=== PATIENT | male | born 1975 | race Caucasian/White ===

== ENCOUNTER 2016-09-04 02:18 | Emergency (ER) | payer MEDICAID ==
[2014-02-28] VITALS: BMI 26.9
[~2016-09-04 02:18] MED LIST: CLEOCIN HCL300 MG PO
== END 2016-09-04 05:32 | disposition home or self-care (01) ==
LOC: D.ER 02:18
DX: J01.90 Acute sinusitis, unspecified (principal)

== ENCOUNTER 2016-09-10 12:41 | Emergency (ER) | payer MEDICAID ==
[2014-02-28] VITALS: BMI 26.9
== END 2016-09-10 15:55 | disposition left against medical advice (07) ==
LOC: D.ER 12:41
DX: J01.90 Acute sinusitis, unspecified (principal)

== ENCOUNTER 2016-10-13 22:55 | Emergency (ER) | payer MEDICAID ==
[2014-02-28] VITALS: BMI 26.9
[2016-10-13 23:51] LABS: BASOPHILS 0.4 % (0.0-2.0); EOSINOPHILS 2.5 % (0-7); HEMATOCRIT 40.9 % (42.0-54.0); IMMATURE GRANULOCYTES 0.7 % (0-5); LYMPHOCYTES 45.5 % (15-50); MCH 31.3 pg (26.0-34.0); MCHC 34.2 g/dL (31.0-37.0); MCV 91.3 fL (80.0-100.0); MEAN PLATELET VOLUME 8.7 fL (7.4-10.4); MONOCYTES 8.8 % (2-11); NEUTROPHILS 42.1 % (40-80); RBC 4.48 10x6/uL (4.20-6.10); RDW 12.4 % (11.5-14.5); WBC 5.5 10x3/uL (4.8-10.8)
[2016-10-13 23:53] LABS: PLATELET COUNT 187 10x3/uL (130-400)
[2016-10-14 00:29] LABS: ALBUMIN 3.9 g/dL (3.4-5.0); ALKALINE PHOSPHATASE 58 U/L (46-116); ALT (SGPT) 69 U/L (10-68); CALC OSMOLALITY 274 mosm/kg (275-300); CALCIUM 8.5 mg/dL (8.5-10.1); CARBON DIOXIDE 24.1 mmol/L (21.0-32.0); CHLORIDE - SERUM 103 mmol/L (98-107); CREATININE - SERUM 1.1 mg/dL (0.6-1.3); GLUCOSE 102 mg/dL (74-106); POTASSIUM - SERUM 3.8 mmol/L (3.5-5.1); SODIUM 137 mmol/L (136-145); UREA NITROGEN 15 mg/dL (7-18); eGFR NON AFRICAN AMERICAN 79 mL/min (90-120)
[2016-10-14 04:05] LABS: APPEARANCE CLEAR (CLEAR); BILIRUBIN NEGATIVE (NEGATIVE); COLOR YELLOW (YELLOW); GLUCOSE NEGATIVE (NEGATIVE); KETONE NEGATIVE (NEGATIVE); LEUKOCYTE ESTERASE NEGATIVE (NEGATIVE); NITRITE NEGATIVE (NEGATIVE); PROTEIN NEGATIVE (NEGATIVE); SPECIFIC GRAVITY 1.025 (1.005-1.020); UROBILINOGEN NORMAL (NORMAL)
[2016-10-14 04:15] LABS: UDS - AMPHET POSITIVE QUAL (NEGATIVE); UDS - BARB NEGATIVE QUAL (NEGATIVE); UDS - BENZO NEGATIVE QUAL (NEGATIVE); UDS - COCAINE NEGATIVE QUAL (NEGATIVE); UDS - METH NEGATIVE QUAL (NEGATIVE); UDS - OPIATE POSITIVE QUAL (NEGATIVE); UDS - PCP NEGATIVE QUAL (NEGATIVE); UDS - THC NEGATIVE QUAL (NEGATIVE)
== END 2016-10-14 04:35 | disposition home or self-care (01) ==
LOC: D.ER 22:55
PROVIDERS: Emergency Medicine
DX: T40.601A Poisoning by unspecified narcotics, accidental (unintentional), initial encounter (principal); Y92.019 Unspecified place in single-family (private) house as the place of occurrence of the external cause

== ENCOUNTER 2016-12-23 20:07 | Emergency (ER) | payer MEDICAID ==
[2014-02-28] VITALS: BMI 26.9
[2016-12-23 20:43] LABS: APPEARANCE CLEAR (CLEAR); BILIRUBIN NEGATIVE (NEGATIVE); COLOR YELLOW (YELLOW); GLUCOSE NEGATIVE (NEGATIVE); KETONE NEGATIVE (NEGATIVE); LEUKOCYTE ESTERASE NEGATIVE (NEGATIVE); NITRITE NEGATIVE (NEGATIVE); PROTEIN NEGATIVE (NEGATIVE); SPECIFIC GRAVITY 1.015 (1.005-1.020)
[2016-12-23 20:45] LABS: EPITHELIAL CELLS 0-5 /hpf (0-5); WHITE CELLS - URINE NSEEN /hpf (0-5)
[2016-12-23 20:51] LABS: BACTERIA FEW /hpf (NONE SEEN); SPERMATOZOA PRESENT /hpf (NONE SEEN)
[2016-12-23 21:17] LABS: BASOPHILS 0.1 % (0-2); EOSINOPHILS 0.5 % (0-7); HEMOGLOBIN 12.9 g/dL (13.5-17.5); IMMATURE GRANULOCYTES 0.4 % (0-5); LYMPHOCYTES 12.4 % (15-50); MCHC 33.9 g/dL (31.0-37.0); MCV 91.3 fL (80.0-100.0); MEAN PLATELET VOLUME 9.1 fL (7.4-10.4); MONOCYTES 12.2 % (2-11); NEUTROPHILS 74.4 % (40-80); RBC 4.16 10x6/uL (4.20-6.10); RDW 12.7 % (11.5-14.5); WBC 10.1 10x3/uL (4.8-10.8)
[2016-12-23 21:19] LABS: PLATELET COUNT 118 10x3/uL (130-400)
[2016-12-23 21:42] LABS: ALBUMIN 3.2 g/dL (3.4-5.0); ANION GAP 14.7 mmol/L (8-16); BILIRUBIN - TOTAL 0.31 mg/dL (0.2-1.3); CALCIUM 7.9 mg/dL (8.5-10.1); CARBON DIOXIDE 23.2 mmol/L (21.0-32.0); CREATININE - SERUM 1.2 mg/dL (0.6-1.3); POTASSIUM - SERUM 3.9 mmol/L (3.5-5.1); PROTEIN - SERUM 6.7 g/dL (6.4-8.2)
== END 2016-12-23 23:21 | disposition home or self-care (01) ==
LOC: D.ER 20:07
PROVIDERS: Emergency Medicine
DX: B34.9 Viral infection, unspecified (principal); F17.200 Nicotine dependence, unspecified, uncomplicated

== ENCOUNTER 2017-01-08 22:14 | Inpatient (IN) | payer MEDICARE ==
[~2017-01-08] VITALS: Ht 185.4 cm; Wt 99.7 kg
--- NOTE | ~2017-01-08 | HEMODYNAMI ---
PATIENT:KATIE SARABIA MEDICAL RECORD: [id number] : 77 LOCATION:[facility] D.2301 ADMISSION DATE: 01/09/17 Generatedon:01/25/201716:42 Patient name: KATIE SARABIA Patient #: [id number] SSN: : 1975 Date of study: 01/25/2017 Page: Of Hemodynamic Procedure Report Patient Data Patient Demographics Procedure consent was obtained First Name: KATIE Gender: Male Last Name: NO : 1975 Middle Initial: E Age: 41 year(s) Patient #: [id number] Race: Unknown Additional ID: [id number] Contact details [address]: [address] [place] [address] State: [place] City: [place] Zip code: [address] Past Medical History Allergies Allergen Reaction Date Comments Reported Penicillins 01/24/2017 Admission Admission Data Admission Date: 01/09/2017 Admission Time: 6:34 Room #: D.2301 Weight (lbs.): 210 Weight (kg.): 95.25 Procedure Procedure Types Cath Procedure Peripheral Cath Diagnostic Procedure Cath Peripheral Abd/Extremity Extremities Right Lower Ext Arterio Procedure Description Procedure Date Procedure Date: 01/25/2017 Procedure Start Time: 15:33 Procedure Staff Name Function Kevon Mason MD Performing Physician Bel Gottlieb RT Scrub Susi Morin RN Nurse Aparna Washburn RT Accounting Recruiter Aparna Washburn RT Monitor Procedure Data Cath Procedure Fluoroscopy Diagnostic fluoroscopy Total fluoroscopy Time: 0 time: 0 min min Diagnostic fluoroscopy Total fluoroscopy dose: 124 dose: 124 mGy mGy Contrast Material Contrast Material Type Amount (ml) Isovue 300 44 Procedure Medications Medication Administration Route Dosage Fentanyl I.V. 50 mcg Versed I.V. 2 mg Fentanyl I.V. 50 mcg Benadryl I.V. 50 mg Nitroglycerin IC/IA I.A. 200 mcg Fentanyl I.V. 50 mcg Versed I.V. 1 mg Heparin Bolus I.V. 3000 units Activase(12.5mg/250 NS) Heparin Drip 500 units/hr (90046ktewa/250 D5W) Hemodynamics Rest Heart Rate: 98 (bpm) Snapshots Pre Cath Intra NCS Post Cath Vital Signs Time Heart Resp SPO2 NIBP (mmHg) Rhythm Pain Sedation Rate (ipm) (%) Status Level (bpm) 14:39:05 95 17 98 127/72(106) NSR 0 (11) 10(A) , No pain 14:46:37 93 17 99 118/70(89) NSR 0 (11) 10(A) , No pain 14:50:45 102 22 97 125/77(87) NSR 0 (11) 10(A) , No pain 14:54:51 99 13 98 119/81(94) NSR 0 (11) 10(A) , No pain 14:59:48 95 15 99 122/82(99) NSR 0 (11) 10(A) , No pain 15:03:56 100 18 100 129/79(94) NSR 0 (11) 10(A) , No pain 15:08:04 98 20 99 122/80(95) NSR 0 (11) 10(A) , No pain 15:12:12 101 19 98 119/78(88) NSR 0 (11) 10(A) , No pain 15:16:19 97 27 98 125/83(96) NSR 0 (11) 10(A) , No pain 15:20:29 97 20 98 117/77(93) NSR 0 (11) 10(A) , No pain 15:24:35 94 15 98 123/85(102) NSR 0 (11) 10(A) , No pain 15:28:41 96 18 98 126/84(95) NSR 0 (11) 10(A) , No pain 15:32:53 96 14 98 124/73(96) NSR 0 (11) 10(A) , No pain 15:37:01 91 15 99 134/81(96) NSR 0 (11) 10(A) , No pain 15:41:10 95 14 96 138/87(115) NSR 0 (11) 10(A) , No pain 15:45:23 97 14 96 138/87(102) NSR 0 (11) 10(A) , No pain 15:49:32 93 24 97 122/79(95) NSR 0 (11) 10(A) , No pain 15:53:38 105 16 96 130/85(98) NSR 0 (11) 10(A) , No pain 15:57:44 105 17 97 126/86(102) NSR 0 (11) 10(A) , No pain 16:01:54 104 14 98 126/86(98) NSR 0 (11) 10(A) , No pain 16:06:02 107 14 97 123/81(96) NSR 0 (11) 10(A) , No pain 16:10:05 108 13 97 126/87(100) NSR 0 (11) 10(A) , No pain 16:14:11 109 13 98 123/84(97) NSR 0 (11) 10(A) , No pain 16:18:19 109 14 125/85(100) NSR 0 (11) 10(A) , No pain 16:22:29 104 18 98 130/85(102) NSR 0 (11) 10(A) , No pain 16:26:39 101 18 98 136/90(104) NSR 0 (11) 10(A) , No pain 16:30:51 97 21 97 139/93(105) NSR 0 (11) 10(A) , No pain 16:41:40 No Cuff NSR 0 (11) 10(A) , No pain Medications Time Medication Route Dose Verified Delivered Reason N otes Effectiveness by by 15:39:19 Fentanyl I.V. 50 mcg Susi Susi for sedation Patience Morin RN RN 15:39:37 Versed I.V. 2 mg Susi Susi for sedation Patience Morin RN RN 15:45:47 Fentanyl I.V. 50 mcg Susi Susi for sedation Patience Morin RN RN 15:46:06 Benadryl I.V. 50 mg Susi Susi for sedation Patience Morin RN RN 15:50:25 Nitroglycerin IC/IA I.A. 200 mcg Susi Kevon for Patience stockton RN, MD 15:53:19 Fentanyl I.V. 50 mcg Susi Susi for sedation Patience Morin RN RN 15:53:29 Versed I.V. 1 mg Susi Susi for sedation Patience Morin RN RN 16:19:22 Heparin Bolus I.V. 3000 Susi Susi units Patience Morin RN RN 16:39:25 Activase(12.5mg/250 I.A. Susi Kevon NS) INFUSION Patience Mason CATHETER ERLINDA LAWTON 16:39:56 Heparin Drip IA 500 Susi Kevon (95457bbzkp/250 sheath units/hr Patience Mason D5W) ERLINDA LAWTON Procedure Log Time Note 14:35:47 Patient Weight : 210 kg 14:35:47 Time tracking: Regular hours 14:37:15 Plan of Care:Hemodynamics will remain stable., Cardiac rhythm will remain stable., Comfort level will be maintained., Respiratory function will remain adequate., Patient/ family verbilizes understanding of procedure., Procedure tolerated without complication., Recovers from procedure without complications.. 14:37:26 Patient received from ICU to IR Alert and oriented. Tansferred to table in Supine position. 14:37:29 Correct patient and procedure confirmed by team. 14:37:30 Signed procedure consent form obtained from patient. 14:37:32 ECG and BP/O2 sat monitors applied to patient. 14:37:32 Vital chart was started 14:37:33 Baseline sample Acquired. 14:37:34 Full Disclosure recording started 14:37:35 - 14:37:53 H&P Date Dictated: 01/25/2017 Within 30 days and on chart.. 14:38:12 Pre-procedure instructions explained to patient. 14:38:13 Pre-op teaching completed and patient verbalized understanding. 14:38:17 Family in waiting room. 14:38:31 Patient NPO since Midnight. 14:38:37 Is the patient allergic to Iodine/contrast media? No. 14:38:40 Is patient on blood thinner?Yes 14:39:02 Patient diabetic? No. 14:39:09 - 14:39:15 Previous problem with sedation/anesthesia? No ? 14:39:20 Snore? Yes 14:39:21 Sleep apnea? No 14:39:23 Deviated septum? No 14:39:25 Opens mouth fully? Yes 14:39:27 Sticks out tongue? Yes 14:39:40 Airway obstruction? No but has endocarditisis 14:39:45 Dentures? No ? 14:39:46 - 15:31:41 Physician arrived 15:33:20 --------ALL STOP TIME OUT------ 15:33:20 Final Timeout: patient, procedure, and site verified with staff and physician. All members of the team are in agreement. 15:33:28 Physical assessment completed. ASA score P 3 - A patient with severe systemic disease as per Kevon Mason MD. 15:33:34 Sedation plan: IV Moderate Sedation Versed, Fentanyl 15:33:40 Procedure started. 15:33:43 Use device set IR Diagnostic 15:33:44 Sterile Angiographic Pack opened to sterile field. 15:33:45 Bag Decanter opened to sterile field. 15:37:[address] 260 .035 glide wire opened to sterile field. 15:37:25 Cook DAVIS 260 guide wire opened to sterile field. 15:37:26 CXI SUPPORT .035 135 CM STR catheter opened to sterile field. 15:39:19 Fentanyl 50 mcg I.V. was administered by Susi Morin RN; for sedation; 15:39:37 Versed 2 mg I.V. was administered by Susi Morin RN; for sedation; 15:45:47 Fentanyl 50 mcg I.V. was administered by Susi Morin RN; for sedation; 15:46:06 Benadryl 50 mg I.V. was administered by Susi Morin RN; for sedation; 15:47:03 Turbohawk 1 Small Atherectomy catheter opened to sterile field. 15:50:25 Nitroglycerin IC/IA 200 mcg I.A. was administered by Kevon Mason MD; for vasodilation; 15:53:19 Fentanyl 50 mcg I.V. was administered by Susi Morin RN; for sedation; 15:53:29 Versed 1 mg I.V. was administered by Susi Morin RN; for sedation; 16:18:17 BasixTOUCH Inflation Syringe opened to sterile field. 16:19:03 Inflation number: 1 A Saber 3.0 X 150 X 150 balloon was prepped and advanced across the Undefined1, then inflated to 15 ELOY for 0:10 (min:sec). 16:19:22 Heparin Bolus 3000 units I.V. was administered by Susi Morin RN; ; 16:31:04 Procedure ended.(Physican Out) 16:37:03 Contrast amount:Isovue 300 44ml. 16:37:11 Fluoroscopy time 00.00 minutes. 16:37:17 Fluoroscopy dose: 124 mGy 16:37:17 Flurop Dose total: 124 16:37:36 Sharps counted by scrub and verified by R.N. 16:37:42 Procedure and supply charges have been captured, reviewed, submitted an d are correct. 16:37:45 Post Procedure Pulses reassessed and unchanged 16:39:25 Activase(12.5mg/250 NS) I.A. INFUSION CATHETER was administered by George Mason MD; ; 16:39:56 Heparin Drip (18513rezir/250 D5W) 500 units/hr IA sheath was administered by Kevon Mason MD; ; 16:42:52 Vital chart was stopped Intervention Summary Intervention Notes Time ActionType Lesion and Equipment Action# Pressure Duration Attributes Used 16:19:03 Inflate Undefined1 Saber 3.0 1 15 00:10 balloon X 150 X 150 balloon Device Usage Item Name Manufacture Quantity Catalog Hospital Part Current Minima l Lot# / Number Charge Number Stock Stock Serial# Code Sterile Cardinal 1 [id number] Angiographic Health Pack Bag Decanter Microtek 1 330758 00186 626782 [employer] Cook [facility] 1 [id number] 252528 674682 5 9[address] ROADNN 260 .035 glide wire [facility] 1 S10233 289299 160696 5 4169850 260 guide wire CXI SUPPORT [facility] 1 [id number] 469187 869846 5 5576694 .035 135 CM STR catheter Turbohawk 1 Ev3 1 H1-S 698653 8479414 357785 5 Small Atherectomy catheter Saber 3.0 X Cardinal 1 [id number] 729426 535542 5 150 X 150 Health balloon [facility] 1 [id number] 332033 839261 657387 5 Inflation Medical Syringe Signature Audit [place] Stage Time Signature Unsigned Intra-Procedure 01/25/2017 Aparna Washburn 4:42:49 PM RT(R) Signatures Monitor : Aparna Washburn RT Signature : Date : Time : [address] [place] [address]
--- NOTE | ~2017-01-08 | HEMODYNAMI ---
PATIENT:KATIE SARABIA MEDICAL RECORD: [id number] : 77 LOCATION:[facility] D.2301 ADMISSION DATE: 01/09/17 Generatedon:01/24/201710:54 Patient name: KATIE SARABIA Patient #: [id number] SSN: : 1975 Date of study: 01/24/2017 Page: Of Hemodynamic Procedure Report Patient Data Patient Demographics Procedure consent was obtained First Name: KATIE Gender: Male Last Name: NO : 1975 Middle Initial: E Age: 41 year(s) Patient #: [id number] Race: Unknown Additional ID: [id number] Contact details Address: [address] [place] [address] State: [place] City: [place] Zip code: [address] Past Medical History Allergies Allergen Reaction Date Comments Reported Penicillins 01/24/2017 Admission Admission Data Admission Date: 01/09/2017 Admission Time: 6:34 Room #: D.2301 Weight (lbs.): 210 Weight (kg.): 95.25 Procedure Procedure Types Cath Procedure Peripheral Cath Diagnostic Procedure Cath Peripheral Abd/Extremity Extremities Bilat Lower Extremity Procedure Description Procedure Date Procedure Date: 01/24/2017 Procedure Start Time: 8:33 Procedure Staff Name Function Dale Thacker MD Performing Physician Bel Gottlieb RT Scrub Suis Morin RN Nurse Aparna Washburn RT Documentation Analyst Aparna Washburn RT Monitor Procedure Data Cath Procedure Fluoroscopy Diagnostic fluoroscopy Total fluoroscopy Time: 9.9 time: 9.9 min min Diagnostic fluoroscopy Total fluoroscopy dose: 382 dose: 382 mGy mGy Contrast Material Contrast Material Type Amount (ml) Isovue 300 110 Diagnostic catheters Device Type Used For End Catheter Placement Angiodynamics SOS OMNI 2 NON B 5FR 65CM catheter Procedure Medications Medication Administration Route Dosage Fentanyl I.V. 50 mcg Versed I.V. 1 mg Fentanyl I.V. 50 mcg Versed I.V. 1 mg Fentanyl I.V. 50 mcg Versed I.V. 1 mg Versed I.V. 1 mg Fentanyl I.V. 50 mcg Benadryl I.V. 50 mg Dilaudid I.V. 1 mg Hemodynamics Rest Heart Rate: 89 (bpm) Snapshots Pre Cath Intra NCS Post Cath Vital Signs Time Heart Resp SPO2 NIBP (mmHg) Rhythm Pain Sedation Rate (ipm) (%) Status Level (bpm) 8:15:08 89 20 97 129/71(91) NSR 0 (11) 10(A) , No pain 8:19:22 89 12 100 129/72(95) NSR 0 (11) 10(A) , No pain 8:23:32 92 13 98 130/79(93) NSR 0 (11) 10(A) , No pain 8:27:48 91 13 98 130/70(90) NSR 0 (11) 10(A) , No pain 8:32:04 95 12 97 127/72(95) NSR 0 (11) 10(A) , No pain 8:36:55 96 13 98 134/78(104) NSR 0 (11) 10(A) , No pain 8:41:07 92 13 99 128/75(97) NSR 0 (11) 10(A) , No pain 8:45:14 91 14 99 124/73(93) NSR 0 (11) 10(A) , No pain 8:49:29 90 13 98 124/71(87) NSR 0 (11) 10(A) , No pain 8:53:42 80 14 98 124/71(90) NSR 0 (11) 10(A) , No pain 8:57:54 89 15 99 119/68(79) NSR 0 (11) 10(A) , No pain 9:02:04 93 15 99 126/75(88) NSR 0 (11) 10(A) , No pain 9:06:16 89 15 98 123/76(89) NSR 0 (11) 10(A) , No pain 9:10:30 86 10 97 120/68(93) NSR 0 (11) 10(A) , No pain 9:14:46 91 19 98 118/64(85) NSR 0 (11) 10(A) , No pain 9:18:58 90 12 97 125/69(86) NSR 0 (11) 10(A) , No pain 9:23:12 89 11 97 126/70(85) NSR 0 (11) 10(A) , No pain 9:27:26 84 14 98 125/68(95) NSR 0 (11) 10(A) , No pain 9:31:38 85 14 100 119/66(78) NSR 0 (11) 10(A) , No pain 9:35:50 86 19 99 119/74(84) NSR 0 (11) 10(A) , No pain 9:39:58 88 16 87 117/83(95) NSR 0 (11) 10(A) , No pain 9:44:10 80 16 97 120/68(84) NSR 0 (11) 10(A) , No pain 9:48:20 82 18 96 121/75(83) NSR 0 (11) 10(A) , No pain 9:52:32 81 17 96 122/69(89) NSR 0 (11) 10(A) , No pain 9:56:41 79 21 95 117/70(87) NSR 0 (11) 10(A) , No pain 10:00:52 80 19 95 120/72(86) NSR 0 (11) 10(A) , No pain 10:05:01 78 14 94 119/71(86) NSR 0 (11) 10(A) , No pain 10:09:13 79 27 94 119/68(93) NSR 0 (11) 10(A) , No pain 10:13:27 80 18 92 114/69(84) NSR 0 (11) 10(A) , No pain 10:17:39 84 14 92 117/67(84) NSR 0 (11) 10(A) , No pain 10:21:53 81 14 94 120/67(83) NSR 0 (11) 10(A) , No pain 10:26:05 81 13 92 120/65(87) NSR 0 (11) 10(A) , No pain 10:30:17 83 26 94 121/68(90) NSR 0 (11) 10(A) , No pain 10:34:39 84 19 94 127/49(91) NSR 0 (11) 10(A) , No pain 10:38:55 89 14 94 123/66(82) NSR 0 (11) 10(A) , No pain 10:43:07 82 12 95 118/63(82) NSR 0 (11) 10(A) , No pain 10:47:21 82 16 96 119/68(85) NSR 0 (11) 10(A) , No pain 10:51:33 96 122/74(91) NSR 0 (11) 10(A) , No pain Medications Time Medication Route Dose Verified Delivered Reason Notes Effectivene ss by by 8:35:02 Fentanyl I.V. 50 Susi Susi for mcg Patience Patience sedation RN RN 8:35:16 Versed I.V. 1 mg Susi Susi for Patience Patience sedation RN RN 8:50:16 Versed I.V. 1 mg Susi Susi for Patience Patience sedation RN RN 8:50:49 Fentanyl I.V. 50 Susi Susi for mcg Patience Patience sedation RN RN 9:00:44 Fentanyl I.V. 50 Susi Susi for mcg Patience Patience sedation RN RN 9:00:53 Versed I.V. 1 mg Susi Susi for Patience Patience sedation RN RN 9:15:16 Versed I.V. 1 mg Susi Susi for Patience Patience sedation RN RN 9:15:28 Fentanyl I.V. 50 Susi Susi for mcg Patience Patience sedation RN RN 9:20:11 Benadryl I.V. 50 mg Susi Susi for Patience Patience itching RN RN 10:52:29 Dilaudid I.V. 1 mg Susi Susi for pain Patience Patience RN nurse advocate Log Time Note 8:12:35 Patient Weight : 210 kg 8:13:19 Time tracking: Regular hours 8:13:40 Plan of Care:Hemodynamics will remain stable., Cardiac rhythm will remain stable., Comfort level will be maintained., Respiratory function will remain adequate., Patient/ family verbilizes understanding of procedure., Procedure tolerated without complication., Recovers from procedure without complications.. 8:13:52 Patient received from Med II to IR Alert and oriented. Tansferred to table in Supine position. 8:13:56 Correct patient and procedure confirmed by team. 8:13:59 Signed procedure consent form obtained from patient. 8:14:00 ECG and BP/O2 sat monitors applied to patient. 8:14:02 Vital chart was started 8:14:04 Baseline sample Acquired. 8:14:05 Full Disclosure recording started 8:14:06 - 8:14:14 H&P Date Dictated: 01/24/2017 Within 30 days and on chart.. 8:14:17 Pre-procedure instructions explained to patient. 8:14:18 Pre-op teaching completed and patient verbalized understanding. 8:14:20 Family in waiting room. 8:14:24 Patient NPO since Midnight. 8:14:32 Patient allergic to Penicillins 8:14:38 Is the patient allergic to Iodine/contrast media? No. 8:14:41 Is patient on blood thinner?No 8:14:45 Patient diabetic? No. 8:14:47 - 8:15:46 Use device set IR Diagnostic 8:15:48 Sterile Angiographic Pack opened to sterile field. 8:15:49 Bag Decanter opened to sterile field. 8:15:50 Acist Manifold opened to sterile field. 8:15:51 Acist Hand Control opened to sterile field. 8:15:53 Acist Syringe opened to sterile field. 8:16:17 TUBING, CONTRAST INJCTN HI PRES opened to sterile field. 8:16:18 Micropuncture VSI 4FR kit opened to sterile field. 8:16:18 [employer] DOC .035 guide wire opened to sterile field. 8:16:19 Terumo 5Fr [place] Sheath opened to sterile field. 8:16:28 ----Pre-sedation anethsthesia assessment.---- 8:16:31 Previous problem with sedation/anesthesia? No ? 8:16:34 Snore? No 8:16:35 Sleep apnea? No 8:16:38 Deviated septum? No 8:16:39 Opens mouth fully? Yes 8:16:41 Sticks out tongue? Yes 8:16:56 Airway obstruction? Yes endocarditisis 8:17:01 Dentures? No ? 8:17:03 - 8:17:14 Pre procedure: right dorsailis pedis pulse Doppler 8:17:19 Pre procedure: left dorsailis pedis pulse Doppler 8:17:22 Pre procedure: right posterior tibial pulse Doppler 8:17:27 Pre procedure: left posterior tibial pulse Doppler 8:17:42 IV patent on arrival in Right upper arm with 0.9% NaCl at [facility]. 8:18:00 Left groin area was prepped with chlora-prep and draped in sterile fashion 8:18:02 Alarms reviewed by Isaías Moncada 8:18:03 Sharps counted by scrub and verified by Edwin 8:18:03 - 8:30:30 Physician arrived 8:33:08 --------ALL STOP TIME OUT------ 8:33:09 Final Timeout: patient, procedure, and site verified with staff and physician. All members of the team are in agreement. 8:33:15 Physical assessment completed. ASA score P 3 - A patient with severe systemic disease as per Dale Thacker MD. 8:33:21 Sedation plan: IV Moderate Sedation Versed, Fentanyl 8:33:27 Procedure started. 8:33:32 Local anesthetic to left femerol artery with Lidocaine 1% by Dale Thacker MD.INITIAL ACCESS ONLY 8:35:02 Fentanyl 50 mcg I.V. was administered by Susi Morin RN; for sedation; 8:35:16 Versed 1 mg I.V. was administered by Susi Morin RN; for sedation; 8:35:21 Arterial access obtained using ultrasound guidance. 8:39:20 A [employer] SOS OMNI 2 NON B 5FR 65CM catheter was advanced over th e wire and used for . 8:49:31 Terumo 5FR ANGLED 65CM glide catheter opened to sterile field. 8:50:16 Versed 1 mg I.V. was administered by Susi Morin RN; for sedation; 8:50:49 Fentanyl 50 mcg I.V. was administered by Susi Morin RN; for sedation; 8:52:17 Terumo ANGLE 180L glide wire opened to sterile field. 8:52:27 Terumo TORQUE DEVICE PLASTIC .038 opened to sterile field. 9:00:44 Fentanyl 50 mcg I.V. was administered by Susi Morin RN; for sedation; 9:00:53 Versed 1 mg I.V. was administered by Susi Morin RN; for sedation; 9:02:25 Cook DAVIS 260 guide wire opened to sterile field. 9:02:44 Terumo 6Fr [place] Destination Sheath opened to sterile field. 9:05:40 Terumo 5FR ANGLED 100CM glide catheter opened to sterile field. 9:06:35 Terumo ANGLE 260cm glide wire opened to sterile field. 9:10:32 CXI SUPPORT .035 135 CM STR catheter opened to sterile field. 9:15:16 Versed 1 mg I.V. was administered by Susi Morin RN; for sedation; 9:15:28 Fentanyl 50 mcg I.V. was administered by Susi Morin RN; for sedation; 9:20:11 Benadryl 50 mg I.V. was administered by Susi Morin RN; for itching; 9:30:59 CRAGG-CARL 10cm infusion catheter opened to sterile field. 9:37:31 infusion cath placed to infuse TPA 9:42:33 Procedure ended.(Physican Out) 9:42:40 Fluoroscopy time 09.90 minutes. 9:44:58 Fluoroscopy dose: 382 mGy 9:44:58 Flurop Dose total: 382 9:45:06 Contrast amount:Isovue 300 110ml. 9:45:09 Procedure and supply charges have been captured, reviewed, submitted an d are correct. 10:52:29 Dilaudid 1 mg I.V. was administered by Susi Morin RN; for pain; 10:54:48 Vital chart was stopped Device Usage Item Name Manufacture Quantity Catalog Hospital Part Current Mini mal Lot# / Number Charge Number Stock Stock Serial# Code Sterile Cardinal 1 [id number] 601136 5 Angiographic Health Pack Bag Decanter Microtek 1 [id number] 32932 580314 5 Medical Inc. Acist Manifold Acist Medical 1 38741 114622 896093 636945 5 Systems Inc Acist Hand Acist Medical 1 15513 364349 718414 684790 5 Control Systems Inc Acist Syringe Acist Medical 1 23379 658955 834860 670325 20 Systems Lenddo TUBING, [facility] Medical 1 [id number] 158108 860755 572311 5 CONTRAST INJCTN HI PRES Micropuncture VSI VASCULAR 1 7266V 105671 979009 5 VSI 4FR kit SOLUTIONS Permabit Technology DOC .035 Cook [facility] 1 S60784 281362 414451 5 7699164 guide wire Terumo 5Fr Terumo 1 UYZ317 275182 394158 775067 40 [place] Sheath Angiodynamics Angiodynamics 1 [id number] 834325 21823 818433 5 SOS OMNI 2 NON B 5FR 65CM catheter Terumo 5FR Terumo 1 CG507 682519 833108 5 ANGLED 65CM glide catheter Terumo ANGLE Terumo 1 DJ3007 325776 761910 372231 5 180L glide wire Terumo TORQUE [place] 1 TD01 397780 424539 949014 5 DEVICE PLASTIC Scientific .038 Cook DAVIS 260 Cook [facility] 1 C03557 449857 135702 5 0884846 guide wire Terumo 6Fr Terumo 1 RSR01 648281 45278 203301 5 [place] Destination Sheath Terumo 5FR Terumo 1 CG508 239509 36323 936542 4 ANGLED 100CM glide catheter Terumo ANGLE Terumo 1 NO7043 104487 926317 127205 5 260cm glide wire CXI SUPPORT [facility] 1 L88464 221128 313840 5 7205976 .035 135 CM STR catheter CARMINA 3 1 00774-40 822501 639058 5 10cm infusion catheter Signature Audit [place] Stage Time Signature Unsigned Intra-Procedure 01/24/2017 Aparna Washburn 10:54:45 AM RT(R) Signatures Monitor : Aparna Washburn RT Signature : Date : Time : [facility] [address] [place] [address]
[2017-01-08 23:33] LABS: HEMOGLOBIN 11.4 g/dL (13.5-17.5); LYMPHOCYTES 5.4 % (15-50); MCH 30.3 pg (26.0-34.0); MCHC 34.5 g/dL (31.0-37.0); MCV 87.8 fL (80.0-100.0); MEAN PLATELET VOLUME 8.4 fL (7.4-10.4); NEUTROPHILS 87.6 % (40-80); RBC 3.76 10x6/uL (4.20-6.10); RDW 12.6 % (11.5-14.5); WBC 11.4 10x3/uL (4.8-10.8)
[2017-01-08 23:34] LABS: PLATELET COUNT 178 10x3/uL (130-400)
[2017-01-09] LABS: ALBUMIN 3.2 g/dL (3.4-5.0); ANION GAP 14.9 mmol/L (8-16); BILIRUBIN - TOTAL 0.37 mg/dL (0.2-1.3); CALCIUM 8.5 mg/dL (8.5-10.1); CARBON DIOXIDE 22.1 mmol/L (21.0-32.0); CREATININE - SERUM 1.5 mg/dL (0.6-1.3); PROTEIN - SERUM 7.8 g/dL (6.4-8.2)
[2017-01-09 00:03] LABS: TROPONIN-I 0.046 ng/mL (0.000-0.060)
[2017-01-09 00:06] LABS: APPEARANCE CLOUDY (CLEAR); BILIRUBIN NEGATIVE (NEGATIVE); COLOR DK YELLOW (YELLOW); GLUCOSE NEGATIVE (NEGATIVE); KETONE NEGATIVE (NEGATIVE); LEUKOCYTE ESTERASE TRACE (NEGATIVE); NITRITE NEGATIVE (NEGATIVE); PROTEIN TRACE mg/dL (NEGATIVE); UROBILINOGEN NORMAL (NORMAL)
[2017-01-09 00:07] LABS: BACTERIA FEW /hpf (NONE SEEN); EPITHELIAL CELLS 0-5 /hpf (0-5); WHITE CELLS - URINE 0-5 /hpf (0-5)
[2017-01-09 07:59] VITALS: BP 71/42; BMI 28.4
--- NOTE | 2017-01-09 08:08 | NUR ---
PT ARRIVED FROM ER VIA WHEELCHAIR. PT TEMP 98.6 ORALLY. BP IS 71/42 ATTEMPTED TO GET HIGHER BP SEVERAL TIMES WITH SAME RESULT. HR 98 BPM. RR 20. O2 SAT 95% ON RA. AT BEDSIDE. ADMISSION IS COMPLETE. PT IS ALERT AND ORIENTED JUST STATES HE "DOES NOT FEEL WELL". CALL PUT IN TO DR ROMAN R/T LOW BP. DR ROMAN SAID TO DO 500 CC BOLUS OF NS. WILL DO
[2017-01-09 09:27] VITALS: BP 84/43
--- NOTE | 2017-01-09 09:28 | NUR ---
PT NS BOLUS COMPLETE. PT BP BACK UP TO 84/43. PT IS STILL UNSYMPTOMATIC OF LOW BP. PT CO HEARTBURN AFTER EATING BREAKFAST, PT ATE GIVEN BREAKFAST TRAY ALONG WITH MCDONALDS BROUGHT IN. PT WAS LYING FLAT. SAT PT UP TO 45 DEGREES PT SAID THAT SEEMED TO HELP. WILL CONT TO MONITOR
--- NOTE | 2017-01-09 09:34 | NUR ---
CALLED [facility] TO RETRIEVE MEDICAL RECORDS PER DR GUZMAN. SPOKE WITH MIKE SHE WILL BE FAXING THEM OVER
--- NOTE | 2017-01-09 11:00 | NUR ---
PT SITTING UP IN BED SLEEPING. NO S/S DISTRESS NOTED. RR EVEN AND UNLABORED. WILL CONT TO MONITOR
--- NOTE | 2017-01-09 11:16 | NUR ---
GEM CALLED AND SAID PT BC ARE POSITIVE FOR GRAM + COCCI IN CLUSTERS. NO ISOLATION IS NEEDED YET UNTIL THEY KNOW WHAT TYPE OF STAPH IT IS, SHE SAID SHE WILL KNOW MORE IN THE AM. SPOKE WITH MARCIO
--- NOTE | 2017-01-09 11:39 | NUR ---
REQUESTED MEDICAL RECORDS FROM [facility] WERE FAXED OVER AND PLACED ON PT CHART.
[2017-01-09 12:04] VITALS: BP 80/46
--- NOTE | 2017-01-09 13:51 | NUR ---
DR LUCERO PLACED AN ORDER FOR PT TO BE PLACED IN ISOLATION CONTACT FOR MRSA IN THE BLOOD. DONE.
--- NOTE | 2017-01-09 14:53 | NUR ---
PARTS DELIVERY DRIVER CAME UP TO ME AND SAID THAT PT WANTED SOME PAIN MEDICATION. WENT IN TO ASSESS PT PAIN LEVEL AND LOCATION, PT IS SLEEPING NO S/S DISTRESS RR EVEN AND UNLABORED. CALLED OUT TO PT WITH NO RESPONSE. WILL CONT TO MONITOR
[2017-01-09 16:12] VITALS: BP 105/47
--- NOTE | 2017-01-09 20:17 | NUR ---
NORCO 1 TAB GIVEN AT PT REQUEST FOR C/O PAIN TO BILATERAL KNEES, RATES PAIN AT A 7 ON PAIN SCALE. WILL CONT TO MONITOR.
[2017-01-09 22:09] VITALS: BP 93/49
--- NOTE | 2017-01-10 00:12 | NUR ---
PT UP TO SHOWER.
[2017-01-10 00:45] VITALS: BP 106/60
--- NOTE | 2017-01-10 01:33 | NUR ---
RESTING WITH EYES CLOSED, RESPERATIONS EVEN, NO S/S DISTRESS NOTED.
[2017-01-10 05:13] VITALS: BP 105/54
--- NOTE | 2017-01-10 05:23 | NUR ---
NORCO 1 TAB GIVEN FOR C/O PAIN TO HAND AND KNEES. RATES PAIN AT AN 8 ON PAIN SCALE.
[2017-01-10 05:40] LABS: BASOPHILS 0.1 % (0-2); EOSINOPHILS 0.5 % (0-7); HEMATOCRIT 30.5 % (42.0-54.0); HEMOGLOBIN 10.2 g/dL (13.5-17.5); IMMATURE GRANULOCYTES 0.3 % (0-5); MCH 30.1 pg (26.0-34.0); MCHC 33.4 g/dL (31.0-37.0); NEUTROPHILS 77.1 % (40-80); RBC 3.39 10x6/uL (4.20-6.10); RDW 13.3 % (11.5-14.5); WBC 13.1 10x3/uL (4.8-10.8)
[2017-01-10 05:42] LABS: PLATELET COUNT 130 10x3/uL (130-400)
[2017-01-10 05:45] LABS: ANION GAP 13.7 mmol/L (8-16); CALCIUM 7.7 mg/dL (8.5-10.1); CARBON DIOXIDE 20.3 mmol/L (21.0-32.0); CREATININE - SERUM 1.5 mg/dL (0.6-1.3)
--- NOTE | 2017-01-10 07:24 | HP ---
PATIENT: KATIE SARABIA MEDICAL RECORD: [id number] ACCOUNT: [id number] LOCATION:[address] : [birth year] ADMISSION DATE: 01/09/17 HISTORY AND PHYSICAL EXAMINATION DATE OF ADMISSION: 01/09/2017 CHIEF COMPLAINT: Elevated temperature. HISTORY OF PRESENT ILLNESS: The patient is a 41-year-old gentleman who apparently has seen Angel Gonzalez in the past, but states that Dr. Gonzalez had ____ patients. He also states that he had been admitted at [facility] over the past couple of weeks with pneumonia. He had developed a fever approximately a month ago. He had also developed a tooth abscess which apparently had ruptured. He has ran fever off and on for the past 3 weeks. His fever was 104 upon presentation in Emergency Room. PAST MEDICAL HISTORY: The patient has had a history of having IV drug use in the past. He has had a fractured left jaw with a plate placed in the left mandible region. He has also had an appendectomy. HABITS: The patient states he is a smoker as well as does drink beer on a daily basis. Has used IV drugs in the past, not any in the last 6 years. SOCIAL HISTORY: [place] [facility] [place] He states he is currently disabled secondary to back pain. 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 ALLERGIES: PENICILLIN. MEDICATIONS: Cannot be found on the intake exam sheet from the Emergency Room. REVIEW OF SYSTEMS: CONSTITUTIONAL: He denies any headaches, seizures, or syncope. Denies change in visual or auditory acuity. PULMONARY: He denies any shortness of breath, cough, congestion, history of TB, asthma or bronchitis. CARDIOVASCULAR: No chest pain, palpitation, PND, orthopnea. GASTROINTESTINAL: No chronic nausea, vomiting, melena or hematochezia. GENITOURINARY: No urgency, frequency, or dysuria. PHYSICAL EXAMINATION: VITAL SIGNS: In the Emergency Room the patient's temperature was 100.1, his pulse was 135, respirations 24, blood pressure 98/62. HEENT: Unremarkable with the exception of numerous dental caries present. Poor dentition. NECK: Supple. There is no adenopathy He has no meningeal signs. HEART: Slightly tachycardic. LUNGS: Clear. ABDOMEN: Soft, bowel sounds are positive. EXTREMITIES: Lower extremities have no edema. LABORATORY DATA: On Admission, he had lactic acid of 1. Urine pH was 5, specific gravity 1.020, trace protein, 10-25 rbc's, 0-5 wbc's. White count was 11.4, hemoglobin 11.4, hematocrit 33, platelets were 178. Sodium 129, potassium HISTORY AND PHYSICAL [id number] KATIE SARABIA E 4, chloride is 96, CO2 is 22, BUN is 24, creatinine is 1.5. ASSESSMENT: Fever of unknown origin. Possible subacute bacterial endocarditis with history of many dental caries as well as history of IV drug use in the past. PLAN: The patient is admitted. Blood cultures will be obtained and he will be placed on vancomycin 1 gram q.12 hours, pharmacy will adjust the doses. He will have an echocardiogram to rule out vegetation. Infectious disease consult will be obtained as well. TRANSINT:[id number] Voice Confirmation ID: [id number] DOCUMENT ID: [id number] KASH NAIR MD at 0724 CC: [id number] DICTATION DATE: 01/09/17711 CABIN EQUIPMENT SUPERVISOR: 01/09/17 0808 ADM IN [place] [id number] [place] [address]
[2017-01-10 08:19] VITALS: BP 92/48
[2017-01-10 12:18] VITALS: BP 101/46
[2017-01-10 15:47] VITALS: BP 106/56
--- NOTE | 2017-01-10 19:33 | NUR ---
ASSESSMENT COMPELTE, A&O, RESPERATIONS EVEN ON RA. IV TO RIGHT FOREARM WITH NS INFUSING AT 125, SITE CLEAN AND DRY. AT BED SIDE, BED LOW, CL IN REACH, WILL CONT TO MONITOR.
--- NOTE | 2017-01-10 21:26 | NUR ---
HS MEDS GIVEN WITH FRESH CUP OF ICE AND LEMON BELKOFSKI SODA. NORCO 1 TAB ALSO GIVEN AT PT REQUEST FOR C/O PAIN TO HANDS AND KNEES, RATES PAIN AT AN 8 ON PAIN SCALE.
[2017-01-10 22:32] VITALS: BP 116/73
[2017-01-11 00:42] VITALS: BP 129/72
--- NOTE | 2017-01-11 03:45 | NUR ---
CHILLER TECHNICIAN AT BEDSIDE TO OBTAIN VITALS, CALL LIGHT IN REACH. WILL CONTINUE WITH PLAN OF CARE.
--- NOTE | 2017-01-11 04:31 | NUR ---
NORCO 1 TAB GIVEN FOR C/O PAIN, RATES PAIN AT AN 8 ON PAIN SCALE.
--- NOTE | 2017-01-11 05:11 | NUR ---
ANSWERED CL, PT SHAKING, STATED THAT HE IS SOB AND HIS FEET AND LEGS ARE IN EXCRUCIATING PAIN. VITALS STABLE, SPO2 94% ON ROOM AIR. PLACED O2 ON AT 2 LITERS FOR PTS PEACE OF MIND, INFORMED HIM TO BREATHE IN SLOWLY THROUGH HIS NOSE AND OUT THROUGH HIS MOUTH. NAPROXEN 2 TABS GIVEN EARLY ALONG WITH A 325 MG OF TYLENOL. DIDNT GIVEN THE FULL 650 MG DUE TO PT HAD JUST TAKEN NORCO 30 MINUTES EARLIER. WILL CONT TO MONITOR.
[2017-01-11 05:12] LABS: BASOPHILS 0.1 % (0-2); EOSINOPHILS 0.5 % (0-7); HEMATOCRIT 28.9 % (42.0-54.0); HEMOGLOBIN 9.7 g/dL (13.5-17.5); IMMATURE GRANULOCYTES 0.5 % (0-5); LYMPHOCYTES 12.9 % (15-50); MCH 30.4 pg (26.0-34.0); MCHC 33.6 g/dL (31.0-37.0); MCV 90.6 fL (80.0-100.0); MEAN PLATELET VOLUME 9.9 fL (7.4-10.4); MONOCYTES 11.1 % (2-11); NEUTROPHILS 74.9 % (40-80); PLATELET COUNT 122 10x3/uL (130-400); RBC 3.19 10x6/uL (4.20-6.10); RDW 13.4 % (11.5-14.5)
--- NOTE | 2017-01-11 05:12 | NUR ---
NORCO 1 TAB GIVEN FOR C/O PAIN, RATES PAIN AT AN 8 ON PAIN SCALE.
[2017-01-11 05:13] LABS: WBC 9.2 10x3/uL (4.8-10.8)
[2017-01-11 05:24] LABS: ANION GAP 11.8 mmol/L (8-16); CALCIUM 7.7 mg/dL (8.5-10.1); CARBON DIOXIDE 22.2 mmol/L (21.0-32.0); CREATININE - SERUM 1.2 mg/dL (0.6-1.3); VANCOMYCIN - TROUGH 9.7 ug/mL (10.0-20.0)
--- NOTE | 2017-01-11 06:01 | NUR ---
PT IN BED, RESTING WITH RESPERATIONS EVEN, NO S/S DISTRESS NOTED. AT BED SIDE.
[2017-01-11 06:10] VITALS: BP 147/85
--- NOTE | 2017-01-11 07:00 | NUR ---
PT WAS RECEIVED AT THE BEGINNING OF THIS SHIFT IN BED AWAKE AND ORIENTED X 4. RT. FOREARM IV WITH NS INFUSING AT 125ML'S/HR. 02 PER NC GOING AT 2L/MIN. PT IS IN CONTACT ISOLATION PRECAUTIONS. PT IS UP AD MIGUELITO TO THE BATHROOM. WILL BE MONITORING HIM AND ASSISTING PRN WITH ADL'S. CALL LIGHT IS REACH.
[2017-01-11 08:00] VITALS: BP 115/47
[2017-01-11 11:55] VITALS: BP 119/64
--- NOTE | 2017-01-11 15:07 | NUR ---
PT ASKED FOR PAIN MEDICATION AROUND 0855 AND AGAIN AT 2PM AND RECEIVED NORCO 7.5MG EACH TIME. IV PATENT AND ABT THERAPY BEING ADMINISTERED PER ORDER. NO SIGNS OF ANY DISCOMFORT OR DISTRESS.
[2017-01-11 15:49] VITALS: BP 112/66
--- NOTE | 2017-01-11 18:46 | NUR ---
PT IS RESTING IN BED WITH EYES CLOSED. STABLE CONDITION OBSERVED. CALL LIGHT IN REACH.
[2017-01-11 19:00] VITALS: BP 141/80
[2017-01-12 04:00] VITALS: BP 137/73
--- NOTE | 2017-01-12 04:09 | NUR ---
ASSESSED AT THE BEGINNING OF THE SHIFT. HE IS ALERT AND ORIENTED, ABLE DEZ VERBALIZE NEEDS. HIS REMAINS WITH HIM. THERE IS CONTACT ISOLATION IN PLACE. HE HAS REQUESTED AND RECEIVED HIS PAIN MEDS WHEN ASKEDD. THERE IS O2 AT 2 LIGHERS AND TE[address]METRY IS IN PLACE. THE BED IS LOW, RAILS UP X'S 2 WITH THE CALL LIGHT AT HAND.
[2017-01-12 05:33] LABS: BASOPHILS 0.1 % (0-2); EOSINOPHILS 0.9 % (0-7); HEMOGLOBIN 10.2 g/dL (13.5-17.5); IMMATURE GRANULOCYTES 1.4 % (0-5); LYMPHOCYTES 17.5 % (15-50); MCH 29.8 pg (26.0-34.0); MCHC 32.9 g/dL (31.0-37.0); MCV 90.6 fL (80.0-100.0); MEAN PLATELET VOLUME 9.4 fL (7.4-10.4); MONOCYTES 13.7 % (2-11); NEUTROPHILS 66.4 % (40-80); PLATELET COUNT 137 10x3/uL (130-400); RBC 3.42 10x6/uL (4.20-6.10); RDW 13.5 % (11.5-14.5); WBC 8.7 10x3/uL (4.8-10.8)
[2017-01-12 05:43] LABS: C-REACTIVE PROTEIN 28.7 mg/dL (0.0-0.9); CALC OSMOLALITY 277 mosm/kg (275-300); CARBON DIOXIDE 23.7 mmol/L (21.0-32.0); CHLORIDE - SERUM 107 mmol/L (98-107); CREATININE - SERUM 1.1 mg/dL (0.6-1.3); GLUCOSE 93 mg/dL (74-106); POTASSIUM - SERUM 4.1 mmol/L (3.5-5.1); SODIUM 140 mmol/L (136-145); eGFR NON AFRICAN AMERICAN 79 mL/min (90-120)
[2017-01-12 06:00] LABS: UREA NITROGEN 11 mg/dL (7-18)
[2017-01-12 06:43] LABS: ERYTHROCYTE SEDIMENTATION RATE 50 mm/hr (0-15)
--- NOTE | 2017-01-12 07:35 | NUR ---
PATIENT REAMAINS IN CONTACT ISOLOATION FOR MRSA BLOOD. ALERT/ORIENT X4. OXYGEN ON AT 2L PER N/C. RIGHT FA PERIPHERAL LINE NS RUNNING AT 125CC/HR. TELEMTRY IN PLACE.
[2017-01-12 08:30] VITALS: BP 141/80
--- NOTE | 2017-01-12 09:47 | NUR ---
PRN NORCO GIVEN FOR ALL OVER GENERLIZED PAIN.
--- NOTE | 2017-01-12 10:09 | NUR ---
PATIENT STATED SOB, CHEST PAIN. V/S TAKEN T 98.2, B/P 164/89. P 119, R20, PO 88 ON ROOM AIR. OXYGEN APPLIED AT 2L PER N/C. PO 94. LUNG SOUNDS LEFT LOBE INSPIRTORY WHEEZING NOTED. THIS NURSE CALLED DR. NAIR OFFICE AND TALKED WITH BREANNA COFFEY.
--- NOTE | 2017-01-12 10:20 | NUR ---
DR. NAJERA NURSE, [place] RETURNED CALL. NEW ORDER RECEIVED FOR CHEST X-RAY, EKG, CARDIAC EMZ. AND TO NOTIFY DR Natividad PAYAN.
--- NOTE | 2017-01-12 10:37 | NUR ---
DR. Natividad VAUGHN MADE AWARE OF. STATED "YES, LETS' GET THE X-RAY. I DON'T FEEL IT IS CARDIAC AT THIS TIME
[2017-01-12 11:19] LABS: LYME WB - IGG P18 AB Absent (()); LYME WB - IGG P23 AB Absent (()); LYME WB - IGG P28 AB Absent (()); LYME WB - IGG P30 AB Absent (()); LYME WB - IGG P39 AB Absent (()); LYME WB - IGG P41 AB Absent (()); LYME WB - IGG P45 AB Absent (()); LYME WB - IGG P58 AB Absent (()); LYME WB - IGG P66 AB Absent (()); LYME WB - IGG P93 AB Absent (()); LYME WB - IGG WB INTERP Negative (()); LYME WB - IGM P23 AB Absent (()); LYME WB - IGM P39 AB Present (()); LYME WB - IGM P41 AB Present (()); LYME WB - IGM WB INTERP Positive (())
[2017-01-12 11:28] LABS: CKMB 0.4 U/L (0.0-3.6); CREATINE KINASE 27 UL (21-232)
[2017-01-12 11:55] VITALS: BP 141/80
--- NOTE | 2017-01-12 14:00 | NUR ---
PRN NORCO GIVEN FOR GENERALIZED ALL OVER PAIN/DISC
[2017-01-12 15:15] LABS: RMSF IGM 0.43 index (0.00-0.89)
[2017-01-12 15:51] VITALS: BP 124/70
[2017-01-12 19:00] VITALS: BP 146/92
--- NOTE | 2017-01-12 21:48 | NUR ---
HS MEDS GIVEN WITH FRESH ICE WATER, IV TUBING CHANGED OUT AND LABELED FOR 72 HOURS USE.
--- NOTE | 2017-01-12 22:52 | NUR ---
NORCO 1 TAB GIVEN FOR C/O PAIN, RATES PAIN AT AN 8 ON PAIN SCALE. AT BED SIDE.
[2017-01-13] VITALS: BP 133/68
--- NOTE | 2017-01-13 02:51 | NUR ---
NORCO 1 TAB GIVEN FOR C/O PAIN, RATES PAIN AT A 7 ON PAIN SCALE.
[2017-01-13 08:54] VITALS: BP 129/73
--- NOTE | 2017-01-13 09:21 | NUR ---
ADMINISTERED MORNING MEDICAITONS, PT IN BED, SLEEPING BUT EASY TO AROUSE. FAMILY AT BEDSIDE, NAD NOTED, WILL CONTINUE TO MONITOR.
[2017-01-13 12:00] VITALS: BP 112/53
--- NOTE | 2017-01-13 16:50 | NUR ---
10MG OF NORCO GIVEN FOR PAIN LEVEL OF 9/10. PT ALERT DENIES ANY OTHER NEEDS AT THIS TIME. CALL LIGHT IN REACH, NAD NOTED, WILL CONTINUE TO MONITOR.
[2017-01-13 16:59] VITALS: BP 132/72
[2017-01-13 20:00] VITALS: BP 119/72
--- NOTE | 2017-01-13 22:30 | NUR ---
PT C/O R.CALF ACHING TENDER PAIN. CALF IS SLIGHTLY WARM BUT VERY TENDER TO THE TOUCH. WILL PASS ON IN REPORT AND SEE ABOUT POSSIBLE DOPPLER PT HAS NO HX OF BLOOD CLOTS BUT IS CONCERNED. PT STATES HE FELT A SHARP SHOOTING PAIN WHILE HE WAS IN SHOWER AND DESCRIBED IT A "FAN HORSE" PT NOW BACK IN BED RESTING QUIETLY AND DENIES ANY FURTHER NEEDS AT THIS TIME.
[2017-01-14] VITALS: BP 128/63
[2017-01-14 04:00] VITALS: BP 126/80
--- NOTE | 2017-01-14 05:45 | NUR ---
INITIATED PTS IVPB VANCOMYCIN AND PROVIDED PT WITH A PAIN PILL REQUESTED FOR GENERALIZED PAIN ALL OVER. PT STATES HE SLEPT WELL OVERALL AND DENIES ANY FURTHER NEEDS AT THIS TIME. CL IN REACH, BED IN LOWEST, SIDE RAILS X2 WILL CPOC.
[2017-01-14 08:00] VITALS: BP 113/64
[2017-01-14 10:17] LABS: BASOPHILS 0.2 % (0-2); EOSINOPHILS 1.4 % (0-7); HEMATOCRIT 30.1 % (42.0-54.0); HEMOGLOBIN 9.8 g/dL (13.5-17.5); IMMATURE GRANULOCYTES 5.9 % (0-5); MCH 29.5 pg (26.0-34.0); MCHC 32.6 g/dL (31.0-37.0); MCV 90.7 fL (80.0-100.0); MEAN PLATELET VOLUME 9.5 fL (7.4-10.4); MONOCYTES 12.1 % (2-11); NEUTROPHILS 68.4 % (40-80); RBC 3.32 10x6/uL (4.20-6.10); RDW 13.3 % (11.5-14.5); WBC 10.6 10x3/uL (4.8-10.8)
[2017-01-14 10:19] LABS: PLATELET COUNT 187 10x3/uL (130-400)
[2017-01-14 10:31] LABS: ALBUMIN 2.1 g/dL (3.4-5.0); ALKALINE PHOSPHATASE 70 U/L (46-116); ALT (SGPT) 23 U/L (10-68); CALC OSMOLALITY 274 mosm/kg (275-300); CALCIUM 7.8 mg/dL (8.5-10.1); CARBON DIOXIDE 23.4 mmol/L (21.0-32.0); CHLORIDE - SERUM 106 mmol/L (98-107); GLUCOSE 85 mg/dL (74-106); POTASSIUM - SERUM 3.6 mmol/L (3.5-5.1); PROTEIN - SERUM 6.3 g/dL (6.4-8.2); SODIUM 139 mmol/L (136-145); UREA NITROGEN 8 mg/dL (7-18); eGFR NON AFRICAN AMERICAN 88 mL/min (90-120)
[2017-01-14 12:00] VITALS: BP 121/66
--- NOTE | 2017-01-14 15:10 | NUR ---
CALLED DR. CLARK REGARDING RESULTS FOR ULTRASOUND AND CHEST XRAY. DR. CLARK STATED TO ORDER ANOTHER CHEST XRAY FOR TOMORROW MORNING AND ALSO A PRO BNP.
[2017-01-14 16:00] VITALS: BP 121/65
--- NOTE | 2017-01-14 18:43 | NUR ---
NORCO 10MG GIVEN FOR PAIN LEVEL OF 8/10. PT DENIES ANY OTHER NEEDS AT THIS TIME. CALL LIGHT IN REACH, NAD NOTED, WILL CONTINUE TO MONITOR.
[2017-01-14 19:00] VITALS: BP 133/79
--- NOTE | 2017-01-14 19:00 | NUR ---
INITIAL ROUNDS MADE. PT SITTING UP IN BED WITH FAMILY IN ROOM. NO NEEDS OR C/O VOICED AT THIS TIME. CALL LIGHT IN REACH. WILL CONT TO MONITOR.
--- NOTE | 2017-01-14 21:24 | NUR ---
HS MEDS GIVEN WITHOUT DIFFICULTY. CONT TO MONITOR.
[2017-01-15] VITALS: BP 155/85
--- NOTE | 2017-01-15 03:42 | NUR ---
HOME OFFICE CLAIM SPECIALIST AT BEDSIDE FOR VS. NEEDS ADDRESSED AT THIS TIME. CALL LIGHT IN REACH. WILL CONT TO MONITOR.
[2017-01-15 04:00] VITALS: BP 158/86
[2017-01-15 05:04] LABS: BASOPHILS 0.3 % (0-2); EOSINOPHILS 1.4 % (0-7); HEMATOCRIT 30.4 % (42.0-54.0); HEMOGLOBIN 10.1 g/dL (13.5-17.5); IMMATURE GRANULOCYTES 7.6 % (0-5); LYMPHOCYTES 12.3 % (15-50); MCH 29.9 pg (26.0-34.0); MCHC 33.2 g/dL (31.0-37.0); MCV 89.9 fL (80.0-100.0); MEAN PLATELET VOLUME 9.3 fL (7.4-10.4); MONOCYTES 9.6 % (2-11); NEUTROPHILS 68.8 % (40-80); RBC 3.38 10x6/uL (4.20-6.10); RDW 12.9 % (11.5-14.5); WBC 11.5 10x3/uL (4.8-10.8)
[2017-01-15 05:05] LABS: PLATELET COUNT 234 10x3/uL (130-400)
[2017-01-15 05:35] LABS: ALBUMIN 2.1 g/dL (3.4-5.0); ALKALINE PHOSPHATASE 64 U/L (46-116); ALT (SGPT) 22 U/L (10-68); BILIRUBIN - TOTAL 0.47 mg/dL (0.2-1.3); CALC OSMOLALITY 276 mosm/kg (275-300); CALCIUM 7.8 mg/dL (8.5-10.1); CARBON DIOXIDE 27.8 mmol/L (21.0-32.0); CHLORIDE - SERUM 105 mmol/L (98-107); GLUCOSE 89 mg/dL (74-106); POTASSIUM - SERUM 3.6 mmol/L (3.5-5.1); PRO BNP 3346 pg/mL (0-125); PROTEIN - SERUM 5.9 g/dL (6.4-8.2); SODIUM 140 mmol/L (136-145); UREA NITROGEN 10 mg/dL (7-18); eGFR NON AFRICAN AMERICAN 88 mL/min (90-120)
--- NOTE | 2017-01-15 07:46 | NUR ---
IN CONTACT ISOLATION WHEN AM ROUNDS MADE, PATIENT APPEARS TO BE SLEEPING, RESP ARE EVEN AND NON LABORED. ON HEART MONITOR SHOWING SR, HR 98. ON ROOM AIR. ON EP, LAB VALUES NORMAL RIGHT AC SEEN WITH NS INFUSING AT 125 CC/HR.
[2017-01-15 07:52] VITALS: BP 140/84
[2017-01-15 11:56] VITALS: BP 117/70
[2017-01-15 13:37] VITALS: Ht 185.4 cm; Wt 99.7 kg
--- NOTE | 2017-01-15 14:32 | NUR ---
Patient Name: KATIE SARABIA Admission Status: ER Accout number: [id number] Admission Date: 01-09-2017 : 1975 Admission Diagnosis:FEVER, UNSPECIFIED Attending: THELMA Current LOS: 6 Anticipated DC Date: Planned Disposition: Home Primary Insurance: MEDICAID [place] Discharge Planning Comments: CM MET WITH PATIENT TO DISCUSS DISCHARGE PLANNING/NEEDS. PATIENT STATED THE PLAN IS TO RETURN HOME WITH FIANCE. STATED THAT HIS HOME ENVIRONMENT IS SAFE. SAID THAT HIS MOM, MALATHI SARABIA, , WILL BE HIS TRANSPORTATION HOME. STATED THAT RIGHT NOW HE IS BETWEEN DOCTORS BECAUSE DR STOVER LEFT AND THEY HAD TO LET SOME OF HIS MEDICAID PATIENTS GO. STATED HE HAS JUST BEEN GOING TO THE WALK IN CLINIC. OFFERED TO ASSIST WITH FINDING A DOCTOR TAKING MEDICAID PATIENTS, AND HE STATED THAT HIS FIANCE HAS FOUND A DOCTOR THAT HE WILL INTERVIEW WITH AFTER HE GETS OUT OF THE HOSPITAL. HE STATED THAT HE DOES NOT REMEBER THE NAME, BUT HIS FIANCE WILL KNOW. AT THIS TIME HE IS DENYING ANY NEEDS UPON DISCHARGE EXCEPT FOR SOMEONE TO BETTER EXPLAIN HIS DISCHARGE MEDICATIONS TO HIM. EXPLAINED THAT THIS INFORMATION WOULD BE RELAYED TO THE NURSING STAFF UP ON DISCHARGE. CM WILL CONTINUE TO FOLLOW. Clinical Dietetic Technician: Eula Mj Is the patient Alert and Oriented? Yes * How many steps to enter\exit or inside your home? 0 * PCP WAS DR STOVER, BUT WHEN HE LEFT THEY DROPPED SEVERAL OF THE MEDICAID PATIENTS. I HAVE AN INTERVIEW WITH A NEW DOCTOR, BUT I DON'T REMEMBER HIS NAME. MY FIANCE KNOWS WHO IT IS. * Pharmacy [facility] [address] * Preadmission Environment Home with Family * ADLs Independent * Equipment None * List name and contact numbers for known caregivers / representatives who currently or will assist patient after discharge: MALATHI SARABIA, MOM, * Community resources currently utilized None * Additional services required to return to the preadmission environment? No * Can the patient safely return to the preadmission environment? Yes * Has this patient been hospitalized within the prior 30 days at any hospital? Yes
[2017-01-15 16:14] VITALS: BP 124/69
--- NOTE | 2017-01-15 17:39 | NUR ---
EATING SUPPER WITH AT BEDSIDE. DENIES NEEDS AT PRESENT TIME, STILL IN CONTACT ISOLATION.
[2017-01-15 20:00] VITALS: BP 130/86
--- NOTE | 2017-01-15 20:00 | NUR ---
ICE PACK PLACED TO RIGHT CALF FOR C/O ACHES. ELEVATED LEG ON PILLOW. INFORMED PT THAT I WILL BRING HIS NAPROXEN SOON I CAN.
--- NOTE | 2017-01-15 21:44 | NUR ---
PT IN BED SHAKING, STATES THAT HE CANT BREATHE, O2 ON AT 2 LITER VIA NC. SPO2 92%. HR [address] ON TELEMERTY PER MT. PT STATING OVER AND OVER "SOMETHINGS NOT RIGHT" PAGE OUT TO DR WILSON SPINDLE REPAIRER FOR DR NAIR.
--- NOTE | 2017-01-15 21:52 | NUR ---
SPOKE WITH DR WILSON, ORDERS GIVEN AND CARRIED OUT.
--- NOTE | 2017-01-15 22:03 | NUR ---
CRYSTAL FROM LAB AT BED SIDE, D DIMER DRAWN. EKG DONE, 151, SINUS TACH. EKG PLACED ON CHART. NORCO 1 TAB GIVEN FOR C/O PAIN, BENADRYL 25 GIVEN TO RIGHT AC IV. WILL CONT TO MONITOR.
--- NOTE | 2017-01-15 22:24 | NUR ---
ELEVATED D DIMER RESULTED, STAT CTA OF CHEST ORDERED, NOTIFIED RADIOLOGY.
--- NOTE | 2017-01-15 23:13 | NUR ---
PT NEEDS NEW IV FOR CTA AND IVF. ATTEMPTS X 4 BY THIS NURSE. EXCELLENT FLASHBACK EVERY TIME BUT CANNOT GET THE IV CATHETER TO ADVANCE, PLUS THE PATIENT IS YELLING OUT TO STOP. HE IS VOMITTING AND THEN THRASHING ABOUT WHILE NURSE TRYING TO ESTABLISH A PATENT IV. HE HAS AN IV, 20G, THAT IS IN HIS RIGHT A/C AND HAS BLOOD RETURN, BUT PATIENT YELLS WHEN MEDS/FLUIDS ARE ON THIS LINE.
--- NOTE | 2017-01-15 23:33 | NUR ---
PT IV TO RIGHT AC IS OUT, TIP INTACT. AFTER SEVERAL ATTEMPTS BY SEVERAL DIFFERENT NURSES, CALL PLACED TO DR WILSON FOR POSSIBLE CENTRAL LINE ORDER. INFORMED DR WILSON OF PTS ELEVATED D DIMER AND UNSUCCESSFUL ATTEMPTS TO ASTABLISH IV, ORDERS GIVEN TO HOLD CTA TONIGHT, GIVEN LOVENOX 1MG/KG TONIGHT AND WILL RE-EVALUATE IN AM.
[2017-01-16] VITALS: BP 103/56
--- NOTE | 2017-01-16 01:01 | NUR ---
LOVENOX 80 MG GIVEN SUBQ TO RIGHT LOWER ABD.
[2017-01-16 04:00] VITALS: BP 100/56
[2017-01-16 05:33] LABS: HEMATOCRIT 28.6 % (42.0-54.0); HEMOGLOBIN 9.8 g/dL (13.5-17.5); MCH 30.9 pg (26.0-34.0); MCHC 34.3 g/dL (31.0-37.0); MCV 90.2 fL (80.0-100.0); PLATELET COUNT 246 10x3/uL (130-400); RBC 3.17 10x6/uL (4.20-6.10); RDW 13.1 % (11.5-14.5); WBC 26.2 10x3/uL (4.8-10.8)
[2017-01-16 06:12] LABS: ANION GAP 12.2 mmol/L (8-16); CALCIUM 8.1 mg/dL (8.5-10.1); CARBON DIOXIDE 27.7 mmol/L (21.0-32.0); POTASSIUM - SERUM 3.9 mmol/L (3.5-5.1); VANCOMYCIN - TROUGH 13.6 ug/mL (10.0-20.0)
[2017-01-16 06:13] LABS: CREATININE - SERUM 1.4 mg/dL (0.6-1.3)
[2017-01-16 06:30] LABS: LYMPHOCYTES 5 % (15-50); MONOCYTES 6 % (2-11); NEUTROPHILS 78 % (40-80); PLATELET ESTIMATE NORMAL
--- NOTE | 2017-01-16 06:30 | NUR ---
VOICE MESSAGE LEFT FOR ANAY THE VASCULAR NURSE TO POSSIBLY SITE A MID LINE IV.
--- NOTE | 2017-01-16 07:30 | NUR ---
AM ROUNDING DONE WITH PATIENT IN CONTACT ISOLATION. PATIENT APPEARS TO BE SLEEPING, RESP ARE EVEN AND NON LABORED. NO IV ACCESS SEEN, ASSISTANT TENNIS COACH LEFT MESSAGE FOR ANAY DOE VASCULAR NURSE, WILL FOLLOW UP WITH THIS AT 0800. O HEART MONITOR SHOWING SR, HR 74. WILL FOLLOW.
[2017-01-16 08:00] VITALS: BP 112/60
--- NOTE | 2017-01-16 08:09 | NUR ---
COMPLAINTS OF PAIN TO RIGHT CALF AREA 9710. NORCO GIVEN FOR DISCOMFORT ORDERED WITH SIP. NPO STATUS FOR CTA, ANAY HAS BEEN NOTIFIED.
--- NOTE | 2017-01-16 08:33 | NUR ---
IV ACCESS-20 GAUGE INSERTED IN LEFT HAND FOR ACCESS. ANAY LOYD RN
--- NOTE | 2017-01-16 09:32 | NUR ---
TO CT VIA WHEELCHAIR.
[2017-01-16 12:00] VITALS: BP 108/85
--- NOTE | 2017-01-16 14:37 | NUR ---
PATIENT AND ARE SLEEPING, RESP ARE EVEN AND NON LABORED. IV VANC IS HUNG, INFUSING TO LEFT HAND WITHOUT PROBLEMS. WILL CONTINUE TO MONITOR.
[2017-01-16 16:00] VITALS: BP 108/54
[2017-01-16 19:00] VITALS: BP 114/59
--- NOTE | 2017-01-16 23:06 | NUR ---
NURSE ROUNDS 20:30 - PT AWAKE, ALERT, ORIENTED, AT BEDSIDE. PT C/O GREAT PAIN IN RIGHT CALF, ALSO GENERALIZED, BUT DENIES ANY OTHER NEEDS. CONTINUE TO MONITOR CLOSELY.
[2017-01-17] VITALS: BP 120/63
--- NOTE | 2017-01-17 00:41 | NUR ---
PT CALLED C/O DEEP CHEST BURN WITH COUGH AND CONGESTION. PT DID SPIT UP BLOODY, THICK SPUTUM, YELLOW/BROWN IN COLOR. I HAVE GIVEN PT A SPUTUM CAE ENGINEER IF A CULTURE NEEDS TO BE OBTAINED. PT HAS A HX OF CHRONIC/ACTIVE SMOKING AND WAS GETTING UPDRAFTS AND INHALERS FROM PREVIOUS HOSPITAL VISITS AT [facility]. WILL ASK PHYSICIAN FOR ORDER FOR RESP CONSULT. OTHERWISE NO OTHER NEEDS. CONTINUE TO MONITOR CLOSELY.
--- NOTE | 2017-01-17 03:52 | NUR ---
PT AWAKE, ALERT, ORIENTED, DENIES ANY NEEDS. CONTINUE TO MONITOR CLOSELY.
[2017-01-17 04:00] VITALS: BP 130/72
[2017-01-17 05:18] LABS: BASOPHILS 0.3 % (0-2); EOSINOPHILS 1.5 % (0-7); HEMATOCRIT 29.3 % (42.0-54.0); HEMOGLOBIN 9.6 g/dL (13.5-17.5); IMMATURE GRANULOCYTES 5.2 % (0-5); LYMPHOCYTES 13.9 % (15-50); MCH 29.9 pg (26.0-34.0); MCHC 32.8 g/dL (31.0-37.0); MCV 91.3 fL (80.0-100.0); MEAN PLATELET VOLUME 9.1 fL (7.4-10.4); MONOCYTES 8.3 % (2-11); NEUTROPHILS 70.8 % (40-80); PLATELET COUNT 254 10x3/uL (130-400); RBC 3.21 10x6/uL (4.20-6.10); RDW 13.2 % (11.5-14.5)
[2017-01-17 05:25] LABS: WBC 12.2 10x3/uL (4.8-10.8)
[2017-01-17 05:58] LABS: ANION GAP 10.3 mmol/L (8-16); CARBON DIOXIDE 30.2 mmol/L (21.0-32.0); CREATININE - SERUM 1.2 mg/dL (0.6-1.3)
[2017-01-17 05:59] LABS: POTASSIUM - SERUM 4.5 mmol/L (3.5-5.1)
[2017-01-17 07:00] VITALS: BP 140/79
[2017-01-17 12:00] VITALS: BP 124/66
[2017-01-17 16:00] VITALS: BP 125/61
[2017-01-17 19:00] VITALS: BP 108/62
--- NOTE | 2017-01-17 20:00 | NUR ---
REPORT RECEIVED AND CARE ASSUMED. ON CONTACT ISOLATION, FAMILY AT BEDSIDE. AWAKE AND ALERT, DENIES ANY NEEDS AT THIS TIME. TELEMETRY SHOWS SINUS RHYTHM @ 77/MIN. SHIFT ASSESSMENT COMPLETED PER FLOW SHEET. CALL LIGHT IN EASY REACH. WILL CONTINUE TO MONITOR.
--- NOTE | 2017-01-17 22:40 | NUR ---
NORCO 10/325 MG PO GIVEN FOR LEVEL # 8 RIGHT CALF PAIN.
[2017-01-18] VITALS: BP 126/67
--- NOTE | 2017-01-18 03:42 | NUR ---
NORCO 10/325 MG PO GIVEN FOR LEVEL #8 CALF PAIN.
[2017-01-18 04:00] VITALS: BP 132/76
[2017-01-18 05:08] LABS: BASOPHILS 0.2 % (0-2); EOSINOPHILS 1.1 % (0-7); HEMATOCRIT 30.2 % (42.0-54.0); IMMATURE GRANULOCYTES 4.5 % (0-5); LYMPHOCYTES 16.3 % (15-50); MCH 30.5 pg (26.0-34.0); MCHC 33.1 g/dL (31.0-37.0); MCV 92.1 fL (80.0-100.0); MEAN PLATELET VOLUME 8.9 fL (7.4-10.4); MONOCYTES 7.7 % (2-11); NEUTROPHILS 70.2 % (40-80); PLATELET COUNT 288 10x3/uL (130-400); RBC 3.28 10x6/uL (4.20-6.10); RDW 13.4 % (11.5-14.5); WBC 10.9 10x3/uL (4.8-10.8)
[2017-01-18 05:17] LABS: CALC OSMOLALITY 280 mosm/kg (275-300); CALCIUM 8.6 mg/dL (8.5-10.1); CARBON DIOXIDE 33.7 mmol/L (21.0-32.0); CHLORIDE - SERUM 103 mmol/L (98-107); CREATININE - SERUM 1.1 mg/dL (0.6-1.3); GLUCOSE 111 mg/dL (74-106); SODIUM 140 mmol/L (136-145); UREA NITROGEN 14 mg/dL (7-18); eGFR NON AFRICAN AMERICAN 79 mL/min (90-120)
[2017-01-18 05:25] LABS: POTASSIUM - SERUM 3.8 mmol/L (3.5-5.1)
--- NOTE | 2017-01-18 08:45 | NUR ---
INTRODUCED MYSELF TO PT PRIMARY RN FOR TODAYS SHIFT. PT IS ALERT AND ORIENTED AND RESTING QUIETLY IN BED. SHIFT ASSESSMENT COMPLETED AND MORNING MEDICATIONS GIVEN. PT C/O HIS R.CALF STILL HURTING REALLY BAD AND TENDER TO THE TOUCH AND COMPLAINS OF FAN HORSE WHEN HE AMBULATES ON IT. DOPPLER WAS DONE AND NEGATIVE, NO SWELLING OR REDDNESS NOTED AND PERIPHERAL PULSE STRONG AND WNL. PROVIDED PT WITH HIS PRN NORCO FOR PAIN ALONG WITH AN ICE PACK TO TRY AND HELP WITH THE SORENESS. OFFERED SCDS BUT PT DENIES WANTING THEM AND THINKS IT'LL MAKE HIS PAIN WORSE. CL IN REACH, BED IN LOWEST, SIDE RAILS X2. PT DENIES ANY FURTHER NEEDS AT THIS TIME. WILL CTM.
[2017-01-18 08:57] VITALS: BP 117/71
--- NOTE | 2017-01-18 11:00 | NUR ---
PT HAS BEEN A STRICT I&O HOWEVER SOME OUTPUTS HAVE NOT BEEN MONITERED CORRECTLY. TEACHING PROVIDED TO PT ON WHY AND HOW IMPORTANT AN ACCURATE I&O IS AND PT VERBALIZED UNDERSTANDING TO CALL AFTER VOIDING SO WE CAN MEASURE EACH TIME. CHANGED OUT PTS IV FLUIDS AND TUBING AND REPLACED WITH NEW TUBING, DATED AND INITIALED PER PROTOCOL. PT VOICED THANKS AND DENIES ANY FURTHER NEEDS AT THIS TIME. CL IN REACH. WILL CTM.
[2017-01-18 15:59] VITALS: BP 115/70
--- NOTE | 2017-01-18 18:56 | NUR ---
PT REQUESTED AND WAS PROVIDED WITH PRN PAIN MEDICATION. PT RESTING WITH GIRLFRIEND AT BEDSIDE AND DENIES ANY FURTHER NEEDS AT THIS TIME. CL IN REACH, BED IN LOWEST, SIDE RAILS X2. WILL CTM.
[2017-01-18 19:00] VITALS: BP 127/53
--- NOTE | 2017-01-18 23:37 | NUR ---
Recieved patient and report, patient alert and oriented, family at bedside, side rails up x 2, bed in lowest position and locked, call light in reach, no acute distress noted, will Continue to monitor.
[2017-01-19] VITALS: BP 123/64
--- NOTE | 2017-01-19 00:37 | NUR ---
PRN [place] given at 2356 for leg pain 8 of 10.
--- NOTE | 2017-01-19 04:56 | NUR ---
PRN [place] given at 0450 for leg pain 8 of 10.
[2017-01-19 05:53] LABS: BASOPHILS 0.2 % (0-2); HEMOGLOBIN 9.5 g/dL (13.5-17.5); IMMATURE GRANULOCYTES 2.4 % (0-5); MCH 29.7 pg (26.0-34.0); MCHC 32.8 g/dL (31.0-37.0); MCV 90.6 fL (80.0-100.0); MEAN PLATELET VOLUME 8.9 fL (7.4-10.4); MONOCYTES 8.8 % (2-11); NEUTROPHILS 72.6 % (40-80); PLATELET COUNT 298 10x3/uL (130-400); RDW 12.8 % (11.5-14.5); WBC 11.5 10x3/uL (4.8-10.8)
[2017-01-19 06:08] LABS: C-REACTIVE PROTEIN 11.1 mg/dL (0.0-0.9); CALC OSMOLALITY 280 mosm/kg (275-300); CALCIUM 8.5 mg/dL (8.5-10.1); CHLORIDE - SERUM 103 mmol/L (98-107); GLUCOSE 115 mg/dL (74-106); POTASSIUM - SERUM 4.1 mmol/L (3.5-5.1); SODIUM 140 mmol/L (136-145); UREA NITROGEN 14 mg/dL (7-18); eGFR NON AFRICAN AMERICAN 88 mL/min (90-120)
[2017-01-19 07:02] LABS: ERYTHROCYTE SEDIMENTATION RATE 86 mm/hr (0-15)
--- NOTE | 2017-01-19 08:18 | NUR ---
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
[2017-01-19 08:56] VITALS: BP 123/69
[2017-01-19 11:18] LABS: HEPATITIS C ANTIBODY >11.0 (0.0-0.9)
[2017-01-19 12:00] VITALS: BP 128/57
--- NOTE | 2017-01-19 12:53 | EC ---
PATIENT:KATIE SARABIA DATE OF SERVICE: 01/09/17 SEX: M MEDICAL RECORD: [id number] DATE OF : [birth year] LOCATION:D.M2 D.212 AGE OF PATIENT: 41 ADMISSION DATE: 01/09/17 REFERRING PHYSICIAN: INTERPRETING PHYSICIAN: LEANDRO GRAY MD ECHOCARDIOGRAM REPORT ECHO CHARGES 4 ECHO COMPLETE CLINICAL DIAGNOSIS: HX OF RECENT SBE AND FEVER / ASSESS FOR VEGATATION ECHOCARDIOGRAPHIC MEASUREMENTS (adult normal given) AC root (d.<3.7cm) 3.3 LV Septum d (<1.2 cm> 1.9 Valve Excursion 2.2 LV Septum (systole) 2.0 Left Atria (s.<4.0cm> 4.0 LVPW d(<1.2cm) 1.8 RV (d.<2.3cm) 4.9 LVPW (sytole) 2.1 LV diastole(<5.6CM) 4.8 MV E-F(>70mm/sec) LV systole 3.4 LVOT Diameter 2.0 MV exc.(>10mm) 2.1 Est.ejection fraction (50-75%) Pericardial Effusion N DOPPLER: LVIT A 90.0 E 141 LA RVSP 37 LVOT 122 AOP1/2T Asc. Ao 141 RVOT 73 RA PA 117 AV Gradient Peak 7.99 AV Mean 4.48 AV Area 2.6 MV Gradient Peak 14.05 MV Mean 3.34 MV Area COMMENTS: Human Resources Technician: Jon BALDERRAMA Supervisor Propellant Charge Loading:Jodie Sauceda TAPE# PACS DATE OF SERVICE: 01/09/2017 Adequate 2D echo, color flow, spectral Doppler, and M-mode. LVH is present. LV internal dimension is normal. Wall motion is normal. EF is greater than or equal to 55%. Aortic valve is tricuspid. No stenosis by Doppler interrogation. The left atrium is upper limits of normal at 4.0 cm. Mitral valve shows no prolapse with questionable vegetation, this apparently was noted previously at [facility]. Right-sided chambers were grossly normal. Trace TR. ECHOCARDIOGRAM REPORT [id number] KATIE SARABIA TRANSINT:[id number] Voice Confirmation ID: [id number] DOCUMENT ID: [id number] 01/15/2017 Edited to correct date of service, dmm. LEANDRO GRAY MD at 1253 CC: [id number] DICTATION DATE: 01/10/17 1049 BUSHER HELPER: 01/10/17 1640 ADM IN [address] [place] [address]
--- NOTE | 2017-01-19 12:53 | EC ---
PATIENT:KATIE SARABIA DATE OF SERVICE: 01/09/17 SEX: M MEDICAL RECORD: [id number] DATE OF : [birth year] LOCATION:D.M2 D.212 AGE OF PATIENT: 41 ADMISSION DATE: 01/09/17 REFERRING PHYSICIAN: INTERPRETING PHYSICIAN: LEANDRO GRAY MD ECHOCARDIOGRAM REPORT ECHO CHARGES 5 ECHO LIMITED CLINICAL DIAGNOSIS: REASSESS VEGATATION ON MITRAL VAVLE FOUND OF ECHO 01-09-17 ECHOCARDIOGRAPHIC MEASUREMENTS (adult normal given) AC root (d.<3.7cm) 3.3 LV Septum d (<1.2 cm> 1.9 Valve Excursion 2.2 LV Septum (systole) 2.0 Left Atria (s.<4.0cm> 4.0 LVPW d(<1.2cm) 1.8 RV (d.<2.3cm) 4.9 LVPW (sytole) 2.1 LV diastole(<5.6CM) 4.8 MV E-F(>70mm/sec) LV systole 3.4 LVOT Diameter 2.0 MV exc.(>10mm) 2.1 Est.ejection fraction (50-75%) Pericardial Effusion N DOPPLER: LVIT A 90.0 E 141 LA RVSP 37 LVOT 122 AOP1/2T Asc. Ao 141 RVOT 73 RA PA 117 AV Gradient Peak 7.99 AV Mean 4.48 AV Area 2.6 MV Gradient Peak 14.05 MV Mean 3.34 MV Area COMMENTS: Dope Heater: Jon BALDERRAMA Ground Transportation Operator:10 Dr. Sauceda TAPE# PACS DATE OF SERVICE: 01/18/2017 Adequate 2D, color flow, and spectral M mode study. This is limited study. This is to assess size of vegetation. Vegetation compared to previous study is smaller. LV function remains normal. Left atrium appears normal. No other interpretation is performed on this limited study. TRANSINT:[id number] Voice Confirmation ID: [id number] DOCUMENT ID: [id number] ECHOCARDIOGRAM REPORT [id number] KATIE SARABIA LEANDRO GRAY MD at 1253 CC: [id number] DICTATION DATE: 01/18/17 1318 SHIPPING AND RECEIVING CLERK: 01/18/17 2339 ADM IN [address] [place] [address]
[2017-01-19 19:00] VITALS: BP 125/72
--- NOTE | 2017-01-19 19:30 | NUR ---
RECEIVED REPORT, PT WATCHING TV, DENIES ANY NEEDS, BED IS LOW, SRX2, CALL LIGHT IN REACH, WILL CONTIUNE PLAN OF CARE
--- NOTE | 2017-01-19 23:45 | NUR ---
PT RESTING WELL WITHOUT C/O OR DISTRESS NOTED. NO CHANGES NOTED IN ASSESSMENT. CALL LIGHT WITHIN REACH. WILL CONT TO MONITOR.
--- NOTE | 2017-01-20 02:38 | NUR ---
ASSESSMENT COMPLETE, SEE FLOWSHEET, PT SLEEPING, AT BEDSIDE, BED IS LOW, SRX2, CALL LIGHT IN REACH, WILL CONTINUE PLAN OF CARE
[2017-01-20 04:00] VITALS: BP 119/64
[2017-01-20 05:20] LABS: BASOPHILS 0.3 % (0-2); EOSINOPHILS 1.5 % (0-7); HEMATOCRIT 29.3 % (42.0-54.0); HEMOGLOBIN 9.5 g/dL (13.5-17.5); IMMATURE GRANULOCYTES 3.1 % (0-5); LYMPHOCYTES 17.9 % (15-50); MCH 29.6 pg (26.0-34.0); MCHC 32.4 g/dL (31.0-37.0); MCV 91.3 fL (80.0-100.0); MEAN PLATELET VOLUME 8.8 fL (7.4-10.4); MONOCYTES 7.9 % (2-11); NEUTROPHILS 69.3 % (40-80); PLATELET COUNT 340 10x3/uL (130-400); RBC 3.21 10x6/uL (4.20-6.10); RDW 12.8 % (11.5-14.5); WBC 9.5 10x3/uL (4.8-10.8)
[2017-01-20 05:37] LABS: ALBUMIN 2.1 g/dL (3.4-5.0); ALKALINE PHOSPHATASE 52 U/L (46-116); ALT (SGPT) 22 U/L (10-68); CALC OSMOLALITY 279 mosm/kg (275-300); CALCIUM 8.8 mg/dL (8.5-10.1); CARBON DIOXIDE 33.8 mmol/L (21.0-32.0); CHLORIDE - SERUM 102 mmol/L (98-107); CREATININE - SERUM 1.1 mg/dL (0.6-1.3); GLUCOSE 104 mg/dL (74-106); POTASSIUM - SERUM 4.2 mmol/L (3.5-5.1); PROTEIN - SERUM 6.6 g/dL (6.4-8.2); SODIUM 140 mmol/L (136-145); UREA NITROGEN 14 mg/dL (7-18); eGFR NON AFRICAN AMERICAN 79 mL/min (90-120)
[2017-01-20 07:00] VITALS: BP 124/64
--- NOTE | 2017-01-20 07:34 | NUR ---
AM ROUNDING- RECEIVED REPORT FROM AUDIO/VIDEO ENGINEER NURSE KAITLIN. PT IS CURRENTLY LAYING IN BED ON BACK WITH EYES OPEN RESTING. GUEST IS AT BEDSIDE. IN CONTACT ISOLATION FOR MRSA IN BLOOD PER REPORT. ON 02 AT 3L VIA NC. ON MONITOR SHOWING SR, HR 93. IV SEEN TO LEFT THUMB WITH NS RUNNING AT 75CC. NO NEED AT CURRENT TIME. WILL CONTINUE TO MONITOR AND CONTINUE WITH PLAN OF CARE.
--- NOTE | 2017-01-20 09:18 | NUR ---
UPON DOING SHIFT ASSESSMENT, PT REQUESTED TO SEE IF DR. NAIR IS STILL ON UNIT TO SEE ABOUT GETTING SOMETHING "STOUTER FOR PAIN". I INFORMED PT THAT IF DR. NAIR WAS ON UNIT I WOULD . DR. NAIR IS ON UNIT, INFORMED WHAT PT HAD STATED TO ME TO DR. NAIR ABOUT RECEIVING SOMETHING "STOUTER FOR PAIN". DR. NAIR GAVE NO NEW ORDERS.
[2017-01-20 11:07] VITALS: BP 128/69
[2017-01-20 16:00] VITALS: BP 130/71
--- NOTE | 2017-01-20 17:56 | NUR ---
PT IS CURRENTLY SITTING UP IN BED WITH EYES OPEN RESTING. GUEST IS AT BEDSIDE. PT IS CURRENTLY ASKING WHEN HE CAN HAVE ANOTHER PAIN PILL. INFORMED PT I'M NOT SURE. WILL LOOK TO SEE WHEN PT CAN HAVE PAIN PILL AND CONTINUE TO MONITOR.
[2017-01-20 20:30] VITALS: BP 127/71
--- NOTE | 2017-01-20 20:30 | NUR ---
RESTING IN BED WITH O2 @ 2L/NC IN PLACE. RESPS EVEN/NONLABORED. C/O PAIN IN LEFT LEG AND BACK, REQUESTED PAIN PILL GIVEN. HS MEDS GIVEN. IV IN LEFT THUMB WITH NS @ 75 INFUSING. ( UNABLE TO TOLERATE AT 125ML/HR). SR PER TELEMETRY. PT FEELING VERY COOPED UP. SALINE LOCKED IV AND HIS IS TAKING HIM IN A WHEELCHAIR FOR A RIDE THROUGH THE HOSPITAL. WILL MONITOR. CPOC.
--- NOTE | 2017-01-20 22:22 | NUR ---
PT NOW BACK IN HIS ROOM. RESUMMED HIS IVF. AT BEDSIDE. NO OTHER NEEDS.
--- NOTE | 2017-01-21 02:00 | NUR ---
PT C/O GENERALIZED PAIN/DISCOMFORT AT 0100. MEDICATED WITH NORCO X 1. PT NOW RESTING WITH EYES CLOSED. NO FURTHER INDICATIONS OF PAIN. AT BEDSIDE.
[2017-01-21 04:00] VITALS: BP 104/60
[2017-01-21 06:08] LABS: BASOPHILS 0.4 % (0-2); EOSINOPHILS 2.3 % (0-7); HEMATOCRIT 30.3 % (42.0-54.0); HEMOGLOBIN 9.9 g/dL (13.5-17.5); IMMATURE GRANULOCYTES 2.2 % (0-5); LYMPHOCYTES 20.4 % (15-50); MCH 29.6 pg (26.0-34.0); MCHC 32.7 g/dL (31.0-37.0); MCV 90.7 fL (80.0-100.0); MONOCYTES 10.3 % (2-11); NEUTROPHILS 64.4 % (40-80); RBC 3.34 10x6/uL (4.20-6.10); RDW 12.9 % (11.5-14.5); WBC 8.3 10x3/uL (4.8-10.8)
[2017-01-21 06:12] LABS: PLATELET COUNT 413 10x3/uL (130-400)
[2017-01-21 06:27] LABS: CALC OSMOLALITY 278 mosm/kg (275-300); CARBON DIOXIDE 31.1 mmol/L (21.0-32.0); CHLORIDE - SERUM 102 mmol/L (98-107); CREATININE - SERUM 1.1 mg/dL (0.6-1.3); GLUCOSE 94 mg/dL (74-106); POTASSIUM - SERUM 4.4 mmol/L (3.5-5.1); SODIUM 139 mmol/L (136-145); UREA NITROGEN 16 mg/dL (7-18); eGFR NON AFRICAN AMERICAN 79 mL/min (90-120)
--- NOTE | 2017-01-21 07:46 | NUR ---
AM ROUNDING- RECEIVED REPORT FROM ALL ROUND BUTCHER NURSE DENINS. PT IS CURRENTLY LAYING IN BED ON BACK WITH EYES OPEN RESTING. GUEST IS AT BEDSIDE. IN CONTACT ISOLATION FOR MRSA IN BLOOD. ON 02 AT 3L VIA NC. ON MONITOR SHOWING SR, HR 80. IV SEEN TO LEFT THUMB WITH NS RUNNING AT 75CC. NO NEED AT CURRENT TIME. WILL CONTINUE TO MONITOR AND CONTINUE WITH PLAN OF CARE.
[2017-01-21 11:52] VITALS: BP 118/62
[2017-01-21 16:00] VITALS: BP 102/62
--- NOTE | 2017-01-21 18:11 | NUR ---
PT JUST GOT BACK TO ROOM FROM TAKING A WALK WITH GIRLFRIEND. PT IS NOW REQUESTING PAIN PILL. WILL CONTINUE TO MONITOR.
--- NOTE | 2017-01-21 19:47 | NUR ---
PT AWAKE AND ALERT. REQUESTED PAIN PILL GIVEN, WELL BEDTIME MEDS. NS @ 75ML/HR INFUSING TO LEFT THUMB. O2 @ 3L/NC WITH NONLABORED RESPIRATIONS. NO DISTRESS. PAIN ISSUES ARE CHRONIC IN NATURE RELATED TO HIS BACK AND HIS LEGS. WILL MONITOR AND CPOC. SEE ASSESSMENT.
[2017-01-21 21:30] VITALS: BP 132/70
--- NOTE | 2017-01-22 | NUR ---
PT AWAKE/WATCHING TV. REQUEST PAIN MED. NORCO PILL X 1 GIVEN. AT BEDSIDE.
[2017-01-22 01:07] VITALS: BP 131/88
[2017-01-22 05:26] VITALS: BP 119/76
[2017-01-22 05:40] LABS: BASOPHILS 0.5 % (0-2); EOSINOPHILS 2.8 % (0-7); HEMOGLOBIN 9.7 g/dL (13.5-17.5); IMMATURE GRANULOCYTES 2.1 % (0-5); LYMPHOCYTES 21.1 % (15-50); MCH 30.1 pg (26.0-34.0); MCHC 33.4 g/dL (31.0-37.0); MCV 90.1 fL (80.0-100.0); MEAN PLATELET VOLUME 8.8 fL (7.4-10.4); MONOCYTES 15.3 % (2-11); NEUTROPHILS 58.2 % (40-80); PLATELET COUNT 438 10x3/uL (130-400); RBC 3.22 10x6/uL (4.20-6.10); RDW 12.9 % (11.5-14.5); WBC 7.5 10x3/uL (4.8-10.8)
[2017-01-22 05:55] LABS: ANION GAP 5.1 mmol/L (8-16); CALCIUM 8.9 mg/dL (8.5-10.1); CARBON DIOXIDE 31.5 mmol/L (21.0-32.0); CREATININE - SERUM 1.3 mg/dL (0.6-1.3); POTASSIUM - SERUM 4.6 mmol/L (3.5-5.1)
[2017-01-22 08:00] VITALS: BP 119/90
--- NOTE | 2017-01-22 08:00 | NUR ---
INTRODUCED MYSELF TO PT PRIMARY RN FOR TODAYS SHIFT. PT IS ALERT AND ORIENTED RESTING QUIETLY IN BED WITH GIRLFRIEND AT BEDSIDE. PT IS HOPING TO BE DISCHARGED SOON AND STATES HE IS FEELING BETTER OVERALL. PT C/O HIS L.THUMB PIV BEING SORE. SITE IS NOT RED AND FLUSHES EASILY HOWEVER IF HE IS STILL NEEDING ANBX THEN HE MAY NEED RESITED BUT PT IS AN EXTREMELY HARD STICK, WILL TALK TO AND SEE IF WE CAN GET A PICC LINE OR MIDLINE FOR LONGER USE OF ANBX IF NEEDED. PT DENIES ANY FURTHER NEEDS AT THIS TIME CL IN REACH, BED IN LOWEST, SIDE RAILS X2 WILL CPOC.
[2017-01-22 12:00] VITALS: BP 114/51
--- NOTE | 2017-01-22 12:56 | NUR ---
R.LEG STILL SORE. POPITEAL PULSE PALP BUT WEAK, DOPPLER STRONG AND EQUAL. DORSALIS PEDIS PALP BUT VERY WEAK, DOPPLER STRONG AND EQUAL. POSTERIOR TIBIAL NOT ABLE TO PALPATE BUT DOPPER STRONG AND EQUAL. PT DOES HAS SMALL KNOT NOTED IN THAT R.CALF BUT PT STATES ITS FEELING BETTER SINCE ADMISSION WHEN HE IS MORE MOBILE. PTS BEEN ENCOURAGED TO AMBULATE MORE AND HAS THERAPY ORDERED.
--- NOTE | 2017-01-22 13:09 | NUR ---
NOTIFIED NURSE TIMOTHY OF ARTERIAL DOPPLER FINDINGS. NO FURTHER NEEDS AT THIS TIME.
--- NOTE | 2017-01-22 15:45 | NUR ---
EXTENSIVE TEACHING PROVIDED ON PICC USE/ACCESS AND PURPOSES. CONSENTS SIGNED AND OBTAINED IN CHART. PT VERBALIZED UNDERSTANDING AND AGREES TO BE COMPLIANT AND USE OF PICC IS ONLY FOR PRESCRIBED MEDICATIONS.
[2017-01-22 16:00] VITALS: BP 117/59
--- NOTE | 2017-01-22 16:56 | NUR ---
D/C PTS L.THUMB PIV WITH CATHETER TIP FULLY INTACT. PT NOW HAS A PICC LINE TO HIS R.UPPER ARM BICEP AREA, DOUBLE LUMEN. BIOPATCH IN PLACE AND SWAB CAPS IN USE.
--- NOTE | 2017-01-22 18:39 | NUR ---
PT RESTING QUIETLY IN BED WITH GIRLFRIEND AT BEDSIDE. PT STATES HE IS FEELING MUCH BETTER OVERALL AND HAD A GOOD DAY. DENIES ANY CURRENT PAIN OR NEEDS. CL IN REACH, BED IN LOWEST, SIDE RAILS X2. WILL REPORT OFF TO NIGHTSHIFT NURSE.
--- NOTE | 2017-01-22 19:50 | NUR ---
RESUMED CARE OF PT, LYING IN BED RESPIRATIONS EVEN AND UNLABORED ON 2LPM VIA NC. RIGHT UPPER ARM PICC SALINE LOCKED. REQUESTS PAIN MEDICATION. CALL LIGHT IN REACH. WILL CONTINUE TO MONITOR. SEE NURSE ASSESSMENT.
[2017-01-23] VITALS: BP 110/55
[2017-01-23 04:00] VITALS: BP 82/41
--- NOTE | 2017-01-23 06:42 | NUR ---
NO CHANGES FROM PREVIOUS ASSESSMENT, CALL LIGHT IN REACH. WILL CONTINUE WITH PLAN OF CARE.
[2017-01-23 06:48] LABS: BASOPHILS 0.4 % (0-2); EOSINOPHILS 1.9 % (0-7); HEMATOCRIT 30.2 % (42.0-54.0); IMMATURE GRANULOCYTES 1.4 % (0-5); LYMPHOCYTES 24.7 % (15-50); MCH 29.9 pg (26.0-34.0); MCHC 33.1 g/dL (31.0-37.0); MCV 90.4 fL (80.0-100.0); MEAN PLATELET VOLUME 8.7 fL (7.4-10.4); MONOCYTES 13.6 % (2-11); PLATELET COUNT 451 10x3/uL (130-400); RBC 3.34 10x6/uL (4.20-6.10); RDW 12.9 % (11.5-14.5); WBC 7.2 10x3/uL (4.8-10.8)
[2017-01-23 06:52] LABS: ANION GAP 10.9 mmol/L (8-16); CALCIUM 8.9 mg/dL (8.5-10.1); CARBON DIOXIDE 29.7 mmol/L (21.0-32.0); CREATININE - SERUM 1.3 mg/dL (0.6-1.3); POTASSIUM - SERUM 4.6 mmol/L (3.5-5.1)
--- NOTE | 2017-01-23 09:00 | NUR ---
PT GONE TO MRI WILL PASS MORNING MEDICATIONS WHEN HE RETURNS.
--- NOTE | 2017-01-23 10:08 | NUR ---
PROVIDED PT WITH RORO CALDWELL FOR HIS R.CALF PAIN. PT WASNT ABLE TO FINISH HIS MRI WITHOUT CONTRAST R/T EXCRUIATING PAIN. PT IS UNABLE TO FULLY EXTEND THAT RIGHT LEG. WILL NOTIFY AND SEE IF ANOTHER TEST IS NEEDED. PT READY TO GET IN SHOWER, WRAPPED PICC ACCESS AND ASSISTED WITH SHOWER SUPPLIES. PT DENIES ANY FURTHER NEEDS AT THIS TIME. CL IN REACH. WILL CTM.
[2017-01-23 12:00] VITALS: BP 101/56
--- NOTE | 2017-01-23 15:00 | NUR ---
INTITIATED IVPB ANB INFUSING VIA R.UPPER ARM PICC LINE VIA RED LUMEN. PROVIDED PT WITH ALL NEW TUBING PER POLICY TO CHANGE Q72H. CONSENTS SIGNED FOR PROCEDURE TOMORROW AND EXPLAINED IT ALL TO PT. PT VERBALIZED UNDERSTANDING AND DENIES ANY QUESTIONS AND KNOWS NOT TO EAT OR DRINK PAST MIDNIGHT. PT DID TELL ME THAT HE IS A JEHOVAHS WITNESS AND REFUSES ANY BLOOD PRODUCTS SO REFUSAL OF BLOOD PRODUCTS WAS SIGNED AND OBTAINED IN CHART. PT RESTING WITH GIRLFRIEND AT BEDSIDE NO FURTHER NEEDS AT THIS TIME. WILL CTM.
--- NOTE | 2017-01-23 15:08 | NUR ---
Patient Name: KATIE SARABIA Encounter No: [id number] : 1975 Primary Insurance: MEDICAID [place] Anticipated DC Date: 01-24-2017 Planned Disposition: Home External Planned Provider: [facility] DCP follow-up note: CM RECEIVED ORDER TO ARRANGE HOME HEALTH FOR IV HOME INFUSION. CM MET WITH PT IN ROOM, DISCUSSED HOME HEALTH INFUSION AT HOME. PT REPORTS THAT HE FEELS HIS HOME IS NOT SANITARY AND HAS THREE DOGS RUNNING AROUND. PT ASKED CM TO SEE IF HE CAN HAVE OUPATIENT INFUSION, HE REPORTS TO HAVE TRANSPORTATION TO THE HOSPITAL DAILY. CM CALLED [facility], EXT [phone], SPOKE TO LISA WHO REPORTS SHE NEEDS A SIGNED ORDERS TO MAKE THE ARRANGEMENTS AND ENSURE THAT PHARMACY HAS THE MEDICATION. ONCE SIGNED SPECIFIC ORDERS ARE RECEIVED, FAX TO OUTPATIENT AT EXT [phone]. CM CALLED DR. LUCERO, INFORMED OF PT'S REQUEST. CM WILL BEGIN OUTPATIENT INFUSION ARRANGEMENTS WITH [facility] WITH RECEIPT OF ORDERS. MAIRA CONTRERAS, CASE MANAGEMENT
[2017-01-23 16:00] VITALS: BP 106/61
--- NOTE | 2017-01-23 17:46 | NUR ---
PT C/O HIS R.CALF HURTING AGAIN. REQUESTED AND PROVIDED WITH PRN PAIN MEDICATION. PT RESTING IN BED WITH GIRLFRIEND AT BEDSIDE. PT WANTED DISCONNECTED FROM IV FLUIDS AFTER ANBX HAS COMPLETED SO I SL HIM HE IS DRINKING WELL AND VERBALLY STATED IT WAS OKAY. PT NOT WEARING TELEMETRY AND STATES HE WILL PUT IT ON IN A LITTLE BIT. CL IN REACH, BED IN LOWEST, SIDE RAILS X2, WILL CTM.
--- NOTE | 2017-01-23 19:20 | NUR ---
ALERT/AWAKE TALKING TO VISITOR. RATES PAIN OF RT UPPER LEG AT 8 ON NUMBER SCALE. DESCRIBED THROBBING. IN CONTACT ISOLATION FOR MRSA. PICC IN RT UPPER ARM DRSG C/D/I. ORIENTED TO CALL LIGHT FOR ANY NEEDS.
[2017-01-23 19:41] VITALS: BP 112/52
--- NOTE | 2017-01-23 21:20 | NUR ---
ADMIN NORCO PO PER REQUEST FOR C/O RT LEG THROBBING PAIN LEVEL 8 ON NUMBER SCALE. REQUESTED SOME MILK. NO OTHER NEEDS VOICED. VISITOR PRESENT IN ROOM.
[2017-01-23 23:26] VITALS: BP 108/58
[2017-01-24] VITALS (14 sets, daily range): BP systolic 112–136; BP diastolic 51–82
--- NOTE | 2017-01-24 01:05 | NUR ---
ADMIN NORCO 10 MG PO PER REQUEST FOR C/O RT POSTERIOR KNEE AND LEG PAIN WITH FEW SIPS OF WATER.
[2017-01-24 06:45] LABS: BASOPHILS 0.6 % (0-2); EOSINOPHILS 2.3 % (0-7); HEMOGLOBIN 10.3 g/dL (13.5-17.5); IMMATURE GRANULOCYTES 1.6 % (0-5); LYMPHOCYTES 27.6 % (15-50); MCH 29.8 pg (26.0-34.0); MCHC 33.2 g/dL (31.0-37.0); MCV 89.6 fL (80.0-100.0); MEAN PLATELET VOLUME 8.7 fL (7.4-10.4); MONOCYTES 14.2 % (2-11); NEUTROPHILS 53.7 % (40-80); PLATELET COUNT 451 10x3/uL (130-400); RBC 3.46 10x6/uL (4.20-6.10); RDW 13.1 % (11.5-14.5); WBC 6.9 10x3/uL (4.8-10.8)
[2017-01-24 06:53] LABS: INR 0.97 (0.85-1.17); PROTIME 12.7 SECONDS (11.6-15.0)
[2017-01-24 06:54] LABS: APTT 36.2 SECONDS (22.8-39.4)
[2017-01-24 07:04] LABS: ANION GAP 9.9 mmol/L (8-16); CALCIUM 8.9 mg/dL (8.5-10.1); CARBON DIOXIDE 30.8 mmol/L (21.0-32.0); CREATININE - SERUM 1.3 mg/dL (0.6-1.3); POTASSIUM - SERUM 4.7 mmol/L (3.5-5.1)
--- NOTE | 2017-01-24 09:54 | NUR ---
I WAS CLEANING OUT HIS ROOM IN 2128 TO TAKE HIS PERSONAL BELONGINGS TO THE ICU, I FOUND 4 32OZ EMPTY BUD LIGHT CANS IN THE CLOSET. ICU NURSE NOTIFIED AND DR. ROMAN NOTIFIED.
--- NOTE | 2017-01-24 10:12 | NUR ---
Nutrition follow-up: Pt having procedure at this time PO intake of regular diet has been 100% of most meals Labs reviewed RDN following.
--- NOTE | 2017-01-24 11:10 | NUR ---
PT ARRIVED BY BED FROM IR. PLACED ON ICU MONITORS. IN CONTACT ISOLATION. VSS AT THIS TIME. LEFT GROIN WITH HEPARIN GTT TO VENOUS LINE AT 500 UNITS/HR. ARTERIAL ACCESS WITH REAPRO AT 1MG/HR INFUSING (20CC/HR). PT ON BEDREST. VOICES UNDERSTANDING. GIVEN URINAL AND CALL LIGHT WITHIN REACH.
--- NOTE | 2017-01-24 11:25 | NUR ---
PT SET UP WITH DILAUDID TELEVISION NEWS PHOTOGRAPHER. INSTRUCTED ON USE. HE VOICES UNDERSTANDING.
[2017-01-24 11:47] LABS: BASOPHILS 0.5 % (0-2); EOSINOPHILS 1.6 % (0-7); HEMATOCRIT 30.8 % (42.0-54.0); HEMOGLOBIN 10.3 g/dL (13.5-17.5); IMMATURE GRANULOCYTES 1.2 % (0-5); LYMPHOCYTES 26.3 % (15-50); MCH 29.9 pg (26.0-34.0); MCHC 33.4 g/dL (31.0-37.0); MCV 89.5 fL (80.0-100.0); MEAN PLATELET VOLUME 8.4 fL (7.4-10.4); MONOCYTES 11.8 % (2-11); NEUTROPHILS 58.6 % (40-80); PLATELET COUNT 407 10x3/uL (130-400); RBC 3.44 10x6/uL (4.20-6.10); RDW 13.1 % (11.5-14.5); WBC 7.5 10x3/uL (4.8-10.8)
[2017-01-24 12:08] LABS: APTT 35.3 SECONDS (22.8-39.4)
[2017-01-24 12:16] LABS: INR 0.94 (0.85-1.17); PROTIME 12.4 SECONDS (11.6-15.0)
--- NOTE | 2017-01-24 15:16 | NUR ---
BOLUS DOSE OF 0.4 OF DILAUDID GIVEN PER MD ORDERS. RIGHT PEDAL PULSE WITH DOPPLER. BILATERAL HEELS BRIDGED.
--- NOTE | 2017-01-24 17:07 | NUR ---
PT TOLERATING BED REST. CLEAR LIQUID SUPPER TRAY SET UP. VSS AT THIS TIME.
--- NOTE | 2017-01-24 17:26 | NUR ---
DR. MARTIN AT BEDSIDE. UPDATED ON PT'S STATUS. SPOKE WITH PT REGARDING PLAN OF CARE.
[2017-01-24 17:44] LABS: BASOPHILS 0.4 % (0-2); EOSINOPHILS 1.3 % (0-7); HEMATOCRIT 31.1 % (42.0-54.0); HEMOGLOBIN 10.4 g/dL (13.5-17.5); IMMATURE GRANULOCYTES 1.1 % (0-5); LYMPHOCYTES 22.7 % (15-50); MCHC 33.4 g/dL (31.0-37.0); MCV 89.6 fL (80.0-100.0); MEAN PLATELET VOLUME 8.7 fL (7.4-10.4); NEUTROPHILS 61.5 % (40-80); PLATELET COUNT 438 10x3/uL (130-400); RBC 3.47 10x6/uL (4.20-6.10); RDW 13.2 % (11.5-14.5)
[2017-01-24 18:19] LABS: APTT 57.3 SECONDS (22.8-39.4); INR 1.55 (0.85-1.17); PROTIME 18.5 SECONDS (11.6-15.0)
--- NOTE | 2017-01-24 19:25 | NUR ---
REPORT REC'D AND CARE ASSUMED, REC'D PT AWAKE, ALERT, ORIENTED X 3 ON ROOM AIR, RIGHT UPPER ARM PICC LINE, DRSG CDI WITH NS @ 30CC/HR AND DILAUDID CLINICAL ACCOUNT SPECIALIST @ 0.2MG Q10 WITH 4MG LOCKOUT, PT RATES PAIN AT "3-5" ON 0-10 PAIN SCALE, LEFT GROIN SHEATH WITH ACTIVASE INFUSING TO ARTERIAL LIMB AND HEPARIN @ 500UNITS/HR TO VENOUS LIMB, PP BY DOPPLER, RIGHT FOOT SLIGHTLY WARM, LEFT PPP, PT REMINDED OF NPO STATUS AT MIDNIGHT AND INSTRUCTED HE COULD HAVE CLEAR LIQUIDS UNTIL THEN, REQUESTING BROTH AND JELLO AT THIS TIME, SR UP X 2, PT UNDERSTANDS TO KEEP HIS LEFT LEG STRAIGHT, CALL LIGHT AND CLINICAL ACCOUNT SPECIALIST BUTTON IN REACH.
--- NOTE | 2017-01-24 20:00 | NUR ---
PT COMPLAINS INCREASED PAIN, REQUESTING BOLUS FOR BREAKTHROUGH PAIN, 0.4MG DILAUDID BOLUS GIVEN AT THIS TIME, CHICKEN BROTH AND JELLO PROVIDED, PT DENIES FURTHER NEEDS.
[2017-01-24 22:44] LABS: BASOPHILS 0.2 % (0-2); EOSINOPHILS 1.1 % (0-7); HEMATOCRIT 30.3 % (42.0-54.0); HEMOGLOBIN 10.2 g/dL (13.5-17.5); IMMATURE GRANULOCYTES 1.1 % (0-5); LYMPHOCYTES 23.7 % (15-50); MCH 30.2 pg (26.0-34.0); MCHC 33.7 g/dL (31.0-37.0); MCV 89.6 fL (80.0-100.0); MEAN PLATELET VOLUME 8.6 fL (7.4-10.4); MONOCYTES 13.3 % (2-11); NEUTROPHILS 60.6 % (40-80); PLATELET COUNT 410 10x3/uL (130-400); RBC 3.38 10x6/uL (4.20-6.10); RDW 13.1 % (11.5-14.5); WBC 8.2 10x3/uL (4.8-10.8)
[2017-01-24 22:56] LABS: INR 1.05 (0.85-1.17); PROTIME 13.5 SECONDS (11.6-15.0)
[2017-01-24 22:57] LABS: APTT 37.3 SECONDS (22.8-39.4)
--- NOTE | 2017-01-24 23:00 | NUR ---
REASSESSMENT COMPLETED, PT DOZING AT INTERVALS WATCHING TV, VSS, WILL CONT TO MONITOR FOR CHANGES.
[2017-01-25] VITALS (26 sets, daily range): BP systolic 106–161; BP diastolic 60–107
--- NOTE | 2017-01-25 01:00 | NUR ---
PT AWAKE, SEAFOOD FISHERMAN EMPTY, NEW VIAL LOADED, PT REQUESTING BOLUS, 0.4 BOLUS GIVEN AT THIS TIME, PT REPOSITIONED UP AND ONTO LEFT SIDE SUPPORTED WITH PILLOW, PT DENIES FURTHER NEEDS.
--- NOTE | 2017-01-25 03:15 | NUR ---
ROUTINE EYE DROPS PROVIDED, PT DENIES PAIN, REQUESTING JELLO, REMINDED PT OF NPO STATUS AT THIS TIME, VERBALIZES UNDERSTANDING, VSS, WILL CONT TO MONITOR FOR CHANGES.
--- NOTE | 2017-01-25 05:00 | NUR ---
PT RESTING IN BED EYES CLOSED, VSS, WILL CONT TO MONITOR FOR CHANGES.
[2017-01-25 05:54] LABS: BASOPHILS 0.4 % (0-2); EOSINOPHILS 0.8 % (0-7); HEMATOCRIT 30.3 % (42.0-54.0); HEMOGLOBIN 10.1 g/dL (13.5-17.5); IMMATURE GRANULOCYTES 0.8 % (0-5); LYMPHOCYTES 21.6 % (15-50); MCHC 33.3 g/dL (31.0-37.0); MCV 89.9 fL (80.0-100.0); MEAN PLATELET VOLUME 8.7 fL (7.4-10.4); MONOCYTES 12.5 % (2-11); NEUTROPHILS 63.9 % (40-80); PLATELET COUNT 418 10x3/uL (130-400); RBC 3.37 10x6/uL (4.20-6.10)
--- NOTE | 2017-01-25 06:00 | NUR ---
AM MEDS GIVEN, NO VISITORS IN AT THIS TIME
[2017-01-25 06:04] LABS: INR 1.04 (0.85-1.17); PROTIME 13.4 SECONDS (11.6-15.0)
[2017-01-25 06:05] LABS: APTT 39.5 SECONDS (22.8-39.4)
[2017-01-25 06:18] LABS: ANION GAP 11.5 mmol/L (8-16); CARBON DIOXIDE 28.2 mmol/L (21.0-32.0); CREATININE - SERUM 1.3 mg/dL (0.6-1.3); POTASSIUM - SERUM 4.7 mmol/L (3.5-5.1)
--- NOTE | 2017-01-25 09:08 | NUR ---
PT AWAKE AND ALERT, DENIES C/O. PPP BLE. NPO FOR IR TODAY.
[2017-01-25 10:01] LABS: BASOPHILS 0.3 % (0-2); EOSINOPHILS 0.7 % (0-7); HEMATOCRIT 30.4 % (42.0-54.0); HEMOGLOBIN 10.2 g/dL (13.5-17.5); IMMATURE GRANULOCYTES 0.9 % (0-5); MCH 30.1 pg (26.0-34.0); MCHC 33.6 g/dL (31.0-37.0); MCV 89.7 fL (80.0-100.0); MEAN PLATELET VOLUME 8.6 fL (7.4-10.4); MONOCYTES 11.7 % (2-11); NEUTROPHILS 65.4 % (40-80); PLATELET COUNT 415 10x3/uL (130-400); RBC 3.39 10x6/uL (4.20-6.10); WBC 10.5 10x3/uL (4.8-10.8)
[2017-01-25 10:29] LABS: APTT 38.5 SECONDS (22.8-39.4); INR 1.03 (0.85-1.17); PROTIME 13.3 SECONDS (11.6-15.0)
--- NOTE | 2017-01-25 12:29 | NUR ---
PT C/O UNCONTROLLED PAIN. BABY NURSE DILAUDID BOLUS GIVEN AND PT CONTINUES TO C/O PAIN THAT IS UNCONTROLLED. CALLED AND REPORTED TO DR NAIR. REC'D ORDERS TO CONTINUE CURRENT ORDERS BABY NURSE. PPP, BLE WARM.
[2017-01-25 14:38] LABS: APTT 38.1 SECONDS (22.8-39.4); INR 1.05 (0.85-1.17); PROTIME 13.5 SECONDS (11.6-15.0)
--- NOTE | 2017-01-25 14:44 | NUR ---
1440- PT TO SPECIAL PROCEDULES/IR.
[2017-01-25 14:55] LABS: BASOPHILS 0.2 % (0-2); EOSINOPHILS 0.2 % (0-7); HEMATOCRIT 29.5 % (42.0-54.0); HEMOGLOBIN 9.9 g/dL (13.5-17.5); IMMATURE GRANULOCYTES 0.5 % (0-5); LYMPHOCYTES 10.4 % (15-50); MCH 29.9 pg (26.0-34.0); MCHC 33.6 g/dL (31.0-37.0); MCV 89.1 fL (80.0-100.0); MEAN PLATELET VOLUME 8.6 fL (7.4-10.4); MONOCYTES 9.3 % (2-11); NEUTROPHILS 79.4 % (40-80); PLATELET COUNT 436 10x3/uL (130-400); RBC 3.31 10x6/uL (4.20-6.10)
[2017-01-25 15:04] LABS: WBC 15.4 10x3/uL (4.8-10.8)
--- NOTE | 2017-01-25 17:10 | NUR ---
BACK FROM IR, NAUSEATED, ZOFRAN GIVEN.
--- NOTE | 2017-01-25 17:35 | NUR ---
N&V, SM AMT EMESIS, PT BENDS LEG, INSTRUCTED TO KEEP LEG STRAIGHT. PT NOT ANSWERING TO QUESTIONS ASKED. BS CK 134. PT DOES ANSWER TO ORIENTATION QUESTIONS WITH PERSISTENCE, FOLLOWS COMAND.
--- NOTE | 2017-01-25 18:36 | NUR ---
SBP 165, PAGED DR WASHINGTON WATERSHED PROGRAM MANAGER FOR DR ROGEL.
--- NOTE | 2017-01-25 18:43 | NUR ---
PHAGED DR Mcqueen ADMINISTRATIVE JOB TITLES FOR DR MARTIN. REC'D CALL BACK. REPORTED N&V AND BP ELEVATED. REC'D ORDERS.
--- NOTE | 2017-01-25 19:15 | NUR ---
UNABLE TO DOPPLER DORSALIS PEDIS PULSE RLE, POSTERIOR PEDAL DOPPLERS WELL ABOVE KALEE. PAGED DR NARANJO ROLLER MAKER FOR DR ROGEL.
--- NOTE | 2017-01-25 19:35 | NUR ---
REPORT REC'D AND CARE ASSUMED, REC'D PT LAYING IN BED, AROUSES TO VOICE SLOW TO FOLLOW COMMANDS, SPEECH GARBLED, RIGHT UPPER ARM PICC LINE NS @ 30CC/HR AND DILAUDID SCALEMAKER 0.2MG Q10MIN WITH 4MG Q4HR LOCKOUT, PT'S BILAT YOGA TEACHER EQUAL, PT'S AT BS, LEFT GROIN SHEATH WITH ACTIVASE INFUSING @ 20CC/HR AND HEPARIN @ 500 UNITS/HR, NO BLEEDING OR HEMATOMA NOTED, RIGHT LEG DP AND PT PULSE FOUND WITH DOPPLER, PT LEANED UP IN BED AND VOMITTED GREEN EMESIS IN EMESIS BAG, COLD CLOTH PROVIDED, FACE CLEANED BY , PT REPOSITIONED IN BED, SR UP X 2, BED IN LOWEST POSITION.
--- NOTE | 2017-01-25 19:41 | NUR ---
REC'D CALL BACK FROM DR WASHINGTON. REPORTED ABSENT PULSE RLE.
--- NOTE | 2017-01-25 19:45 | NUR ---
DR. WASHINGTON ON UNIT, LEFT SHEATH SITE EXAMINED AND RIGHT FOOT DOPPLERED FOR PULSES, ORDERS REC'D FOR MED FOR ELEVATED BP.
--- NOTE | 2017-01-25 20:20 | NUR ---
10MG HYDRALAZINE GIVEN SLOW IVP FOR BP GREATER THAN 150.
--- NOTE | 2017-01-25 20:50 | NUR ---
10MG HYDRALAZINE GIVEN SLOW IVP, PT ATTEMPTED TO SIT UP IN BED, REMINDED PT OF LEFT SHEATH AND THAT HE COULD NOT SIT UP, LAYS BACK DOWN WHEN ASKED, LEFT GROIN CDI, PT RESTLESS, MOANING AT TIMES, WHEN ASKED WHAT IS WRONG STATES " WATER", ATTEMPTED ICE CHIP WITH PATIENT PUSHES SPOON AWAY, BP 149/99, WILL MONITOR FOR CHANGES.
--- NOTE | 2017-01-25 21:00 | NUR ---
EVENING MEDS HELD DUE TO NAUSEA AND VOMITTING
--- NOTE | 2017-01-25 21:30 | NUR ---
NO VISITORS IN AT THIS TIME, PT CONTINUES TO BEND LEFT LEG THOUGH INSTRUCTED NOT TOO AND FREQUENT REMINDERS TO KEEP LEG STRAIGHT, WILL MONITOR CLOSELY FOR CHANGES
--- NOTE | 2017-01-25 21:57 | NUR ---
BP ELEVATED 10MG HYDRALAZINE GIVEN SLOW IVP
--- NOTE | 2017-01-25 22:20 | NUR ---
PT CONTINUOUSLY MOVING ABOUT IN BED, WILL NOT KEEP LEFT LEG STRAIGHT, SOFT WRIST RESTRAINT APPLIED TO ANKLE TO REMIND PT NOT TO BEND LEG, PT DOES NOT TRACK OR FOLLOW COMMANDS AT THIS TIME.
[2017-01-25 22:35] LABS: HEMOGLOBIN 9.9 g/dL (13.5-17.5); MCH 29.9 pg (26.0-34.0); MCHC 34.1 g/dL (31.0-37.0); MCV 87.6 fL (80.0-100.0); MEAN PLATELET VOLUME 8.6 fL (7.4-10.4); PLATELET COUNT 431 10x3/uL (130-400); RBC 3.31 10x6/uL (4.20-6.10); RDW 12.9 % (11.5-14.5); WBC 25.9 10x3/uL (4.8-10.8)
[2017-01-25 22:42] LABS: INR 1.14 (0.85-1.17); PROTIME 14.4 SECONDS (11.6-15.0)
[2017-01-25 22:43] LABS: APTT 74.3 SECONDS (22.8-39.4)
--- NOTE | 2017-01-25 22:50 | NUR ---
PT HANGING HEAD OVER SIDE OF BED TO DRY HEAVE, EMESIS BAG PROVIDED, 4MG ZOFRAN GIVEN SLOW IVP FOR NAUSEA AGAIN ATTEMPTING TO GET PT TO KEEP LEFT LEG STRAIGHT, CONSTANTLY BOUNCING LEGS, DOES NOT RESPOND TO QUESTIONS ASKED, BP IMPROVED, CM-ST @ 120, WILL MONITOR CLOSELY FOR CHANGES.
[2017-01-25 22:52] LABS: LYMPHOCYTES 4 % (15-50); MONOCYTES 5 % (2-11); NEUTROPHILS 90 % (40-80); PLATELET ESTIMATE INCREASED
--- NOTE | 2017-01-25 23:00 | NUR ---
PT INCREASINGLY AGITATED, DOES NOT FOLLOW COMMANDS OR INSTRUCTIONS, REQUIRING MULTIPLE STAFF MEMBERS TO KEEP PT FLAT IN BED.
--- NOTE | 2017-01-25 23:30 | NUR ---
PT FLAILING ALL EXT'S DESPITE WRIST RESTRAINTS APPLIED, SLIDING SELF DOWN IN BED AND ATTEMPTING TO BED LEFT LEG, WILL MAKE EYE CONTACT WHEN NAME CALLED BUT DOES NOT ANSWER QUESTIONS, PARTIAL LINEN CHANGE PROVIDED, PT ROLLING SELF SIDE TO SIDE DESPITE REQUESTS NOT TO, WHEN ASKED PT IF HE NEEDED TO URINATE STATES "YES" ATTEMPTED TO HOLD URINAL FOR PT, PT WOULD NOT VOID, ATTEMTPED IN AND OUT CATH WITH NO URINE RETURN NOTED, DR. WASHINGTON PAGEDalila.
--- NOTE | 2017-01-25 23:50 | NUR ---
SPOKE WITH DR. WASHINGTON REGARDING LAB VALUES, MENTAL STATUS AND CONTINUED AGITATION, NEW ORDERS REC'D.
[2017-01-26] VITALS (42 sets, daily range): BP systolic 90–158; BP diastolic 52–101
--- NOTE | 2017-01-26 00:15 | NUR ---
PT REPOSITIONED UP IN BED, 1MG ATIVAN GIVEN SLOW IVP FOR RESTLESSNESS AND AGITATION, BP 157/93, CM- ST @ 130, WILL MONITOR CLOSELY FOR CHANGES.
--- NOTE | 2017-01-26 01:00 | NUR ---
PT RESTING EYES CLOSED, RESP EVEN AND UNLABORED, BP STABLE, VISIBLE TO NURSES STATION.
--- NOTE | 2017-01-26 02:50 | NUR ---
BP 155/95, HR 142 ST, PT OPENS EYES TO NAME, CONTINUES TO NOT ANSWER QUESTIONS OR FOLLOW COMMANDS, 10MG HYDRALAZINE GIVEN SLOW IVP
[2017-01-26 04:13] LABS: BASOPHILS 0 % (0-2); EOSINOPHILS 0 % (0-7); HEMATOCRIT 27.9 % (42.0-54.0); HEMOGLOBIN 9.6 g/dL (13.5-17.5); IMMATURE GRANULOCYTES 0.6 % (0-5); LYMPHOCYTES 5.8 % (15-50); MCH 29.8 pg (26.0-34.0); MCHC 34.4 g/dL (31.0-37.0); MCV 86.6 fL (80.0-100.0); MEAN PLATELET VOLUME 8.8 fL (7.4-10.4); MONOCYTES 5.1 % (2-11); NEUTROPHILS 88.5 % (40-80); PLATELET COUNT 472 10x3/uL (130-400); RBC 3.22 10x6/uL (4.20-6.10); WBC 26.4 10x3/uL (4.8-10.8)
[2017-01-26 04:23] LABS: INR 1.17 (0.85-1.17); PROTIME 14.8 SECONDS (11.6-15.0)
[2017-01-26 04:31] LABS: ANION GAP 16.5 mmol/L (8-16); APTT 42.6 SECONDS (22.8-39.4); CARBON DIOXIDE 25.6 mmol/L (21.0-32.0); CREATININE - SERUM 1.2 mg/dL (0.6-1.3); POTASSIUM - SERUM 4.1 mmol/L (3.5-5.1)
--- NOTE | 2017-01-26 04:35 | NUR ---
CM-ST @ 145, DR. CLARK PAGED, PT WITHDRAWS TO PAINFUL STIMULI BUT OTHERWISE DOES NOT RESPOND, ORAL CARE PROVIDED, BLOOD NOTED IN MOUTH, BP STABLE AFTER HYDRALAZINE, WILL CONT TO MONITOR FOR CHANGES.
--- NOTE | 2017-01-26 05:00 | NUR ---
SPOKE WITH DR. CLARK REGARDING CHANGE IN MENTAL STATUS AND ELEVATED HR, NEW ORDERS REC'D TO RECONSULT CARDIOLOGY.
--- NOTE | 2017-01-26 05:20 | NUR ---
DR. MIAN VAUGHN
--- NOTE | 2017-01-26 05:30 | NUR ---
SPOKE WITH DR. PAPPAS REGARDING ST @ 155, NEW ORDER'S REC'D.
--- NOTE | 2017-01-26 06:05 | NUR ---
PT'S RADHA @ BS, UPDATE GIVEN AND QUESTIONS ANSWERED.
--- NOTE | 2017-01-26 07:10 | NUR ---
DR. CLARK ON UNIT, UPDATE PROVIDED, ABG ORDERED.
--- NOTE | 2017-01-26 07:30 | NUR ---
PT INTUBATED WITH 8.0 AT 0722 AT BEDSIDE. CHEST XRAY ORDERED. ON ASSIST CONTROL.
--- NOTE | 2017-01-26 08:24 | NUR ---
PATIENT IS UNRESPONSIVE TO PAINFUL STIMULI. LUNGS WITH RHONCHI IN LOWER LOBES BILATERAL. RESPIRATIONS UNLABORED AND EVEN PER VENT. HEART TONES BOUNDING WITH REGULAR RHYTHM AND TACHY RATE. ABDOMEN SOFT AND NO FACIAL GRIMACING DURING PALPATION, BS HYPOACTVIE X4 QUADS. SKIN HOT, DRY, AND PINK. CAP REFILL <3. PATIENT HAS LEFT GROIN SHEAT WITH DRESSING INTACT, AND NS INFUSING AT 20ML/HR, HEPARIN INFUSING AT 5ML/HR. TPA DISCONTINUED PER DR. STACK. R UPPER ARM WITH PICC LINE INTACT WITH NS INFUSING AT 20ML/HR AND DIPROVAN AT 20ML/HR=41.67MCG/KG/MIN.
[2017-01-26 10:19] LABS: BASOPHILS 0 % (0-2); EOSINOPHILS 0 % (0-7); HEMATOCRIT 29.1 % (42.0-54.0); HEMOGLOBIN 9.7 g/dL (13.5-17.5); IMMATURE GRANULOCYTES 0.5 % (0-5); LYMPHOCYTES 10.6 % (15-50); MCH 29.4 pg (26.0-34.0); MCHC 33.3 g/dL (31.0-37.0); MCV 88.2 fL (80.0-100.0); MEAN PLATELET VOLUME 8.6 fL (7.4-10.4); MONOCYTES 11.2 % (2-11); NEUTROPHILS 77.7 % (40-80); PLATELET COUNT 395 10x3/uL (130-400); WBC 21.6 10x3/uL (4.8-10.8)
--- NOTE | 2017-01-26 10:28 | NUR ---
ACCESSED PATIENT CHART PER HEALTH WORKER REQUEST TO VIEW LABS
[2017-01-26 10:34] LABS: UDS - AMPHET NEGATIVE QUAL (NEGATIVE); UDS - BARB NEGATIVE QUAL (NEGATIVE); UDS - BENZO POSITIVE QUAL (NEGATIVE); UDS - COCAINE NEGATIVE QUAL (NEGATIVE); UDS - METH NEGATIVE QUAL (NEGATIVE); UDS - OPIATE POSITIVE QUAL (NEGATIVE); UDS - PCP NEGATIVE QUAL (NEGATIVE); UDS - THC NEGATIVE QUAL (NEGATIVE)
[2017-01-26 10:42] LABS: APTT 39.6 SECONDS (22.8-39.4)
[2017-01-26 10:52] LABS: INR 1.19 (0.85-1.17)
--- NOTE | 2017-01-26 11:59 | NUR ---
SPOKE TO PATIENT FATHER ZENOBIA SARABIA. PHONE CONSENT PROVIDED BY ZENOBIA SARABIA FOR PATIENT TO GO TO O.R. FOR VENTRICULOSTOMY AND ANESTHESIA. PT HAS AN AUNT WHO SAYS SHE WORKS HERE IN REHAB THAT IS CURRENTLY AT BEDSIDE. HAS BEEN IN CONTACT WITH ZENOBIA SARABIA.
--- NOTE | 2017-01-26 12:50 | NUR ---
Surgery has exited icu with patient enroute to OR.
--- NOTE | 2017-01-26 13:02 | NUR ---
01/26/2017 13:00 CM: Case Management Order rec'd for CM to assist with POA - patient currently in surgery. No family in waiting area.
--- NOTE | 2017-01-26 13:30 | NUR ---
PATIENT RETURNED FROM SURGERY WITH DRESSING INTACT TO INCISION NOTED ON RIGHT FRONTAL SCALP AREA WITH ANIKA INTACT AND NO DRAINAGE NOTED. PATIENT CONNECTED TO ICP AND ZEROED WITH READING OF 11. PATIENT CONNECTED TO DRAINAGE TUBING FOR ICP PER MD ORDER.
--- NOTE | 2017-01-26 13:49 | NUR ---
PATIENT CAME TO OR INTUBATED, LYNN.
--- NOTE | 2017-01-26 16:19 | NUR ---
SPOKE WITH DR RAMIREZ REGARDING CONSULT. ORDERED Q8H H&H AND PROTONIX DRIP.
[2017-01-26 16:59] LABS: HEMOGLOBIN 9.2 g/dL (13.5-17.5)
--- NOTE | 2017-01-26 19:00 | NUR ---
1900: Pt rec'd resting HOB 10 degrees with eyes closed. Pt is sedated with Diprivan at this time. Pupils = sluggish to light stimulus. Pt does not respond to verbal stimuli. No painful or sx stimulus R/T ICP. Pt breathing via 8.0fr ETT @ 25cm lip line with Vent AC 22/600/75/Peep 2 with pt RR 22x with SPO2 94-95%. MMP and no cyanosis noted. Lungs decreased on RML/RLL with auscultation. Pt is hot and moist to touch. Temp 103F Oral. S1S2 rapid 130's on CM. Right AC PICC intact with IV as per flow sheet. Left groin with Arterial sheath taped intact. No s/s of bleeding, oozing, or swelling at site. Connected and transduced to CM for ART line monitorring. Bilateral P.Tibial and D. Pedis pulses via doppler with strong quality. ABD soft NT BS absnet. OGT to LIS with dark/reddish liquid return. Che to gravity with >30 cc/hr dark yellow UOP. No SCDs related to severe occlusive PVD, Monitors on and alarms on, Bed Alarm on and audible, Pt remains in bilateral soft wrist restraints to prevent accidental removal of neccassary medical equipment and devices.
--- NOTE | 2017-01-26 19:01 | NUR ---
190: Right temporal scalp incision site seen. Covered with tegaderm. No bleeding, redness, or swelling incision site. Drain from incision connected to V-Drain at 10mmhg. V-Drain leveled as directed with middle of pt's head. (Ear) Drainage bag connected to V-Drain with scant clear output. Pt remains sedated with diprivan gtt. Pt does not respond to verbal commands. Pt does not move extrem at this time. No painfull or threat stimulus check done to prevent rise in ICP. Pt's pupils 2-3mm in size and sluggish response with light stimulus. Pt temp increased at 103F Oral.
--- NOTE | 2017-01-26 19:05 | NUR ---
190: All linens removed, Temp in room adjusted, Ice Packs applied to armpits, Fan to blow across body, and Vent heater off at this time.
--- NOTE | 2017-01-26 21:00 | NUR ---
2100: Pt temp remains 100.6F oral at this time. Meds via OGT clamped x30 minutes. Che care done at this time. Again, no sx at this time to prevent increase in ICP. Pt HR 100-110 at this time. SBP per ART 90's. Labetalol held at this time.
--- NOTE | 2017-01-26 23:30 | NUR ---
2330: New orders rec'd. Vent settings changed: Increased Vt 600 and Peep to 5 per RT.
--- NOTE | 2017-01-26 23:45 | NUR ---
2345: Pt V-Drain drainage rate increased Total of 25cc output this shift. Drainage drip rate steady. Pt decorticate posturing at times. Pupils changed with Left pupil 4mm and Right pupil 1mm with no response to light activity. Dr. Field called and notifed.
[2017-01-27] VITALS (92 sets, daily range): BP systolic 85–147; BP diastolic 48–94
--- NOTE | 2017-01-27 01:45 | NUR ---
0145: Pt HR 116 SBP 130-140 per ART line. Labetalol 10mg IV admin slowly.
--- NOTE | 2017-01-27 02:20 | NUR ---
0220: Pt HR SR 90's at this time with SBP 90-100 per ART line. Drainage in V-Drain slowed at this time. No posturing seen. Pt T99.1F oral.
--- NOTE | 2017-01-27 02:50 | NUR ---
0250: Right arm PICC dressing changed with sterile technique. Biopatch placed and dressing secure. No change in IVF.
--- NOTE | 2017-01-27 04:00 | NUR ---
0400: Pt repositioned at this time. V-Drain position confirmed and in place with 0 at level of ear. Little drainage output at this time. Pt ST 110's at this time with SBP 85-90 per ART line. No change in IVF/UOP. Pt temp 98.8 Oral at this time. Pupils 2mm fixed bilaterally at this time.
[2017-01-27 04:19] LABS: BASOPHILS 0.1 % (0-2); EOSINOPHILS 0 % (0-7); HEMATOCRIT 30.2 % (42.0-54.0); HEMOGLOBIN 9.8 g/dL (13.5-17.5); IMMATURE GRANULOCYTES 0.4 % (0-5); LYMPHOCYTES 5.1 % (15-50); MCH 29.3 pg (26.0-34.0); MCHC 32.5 g/dL (31.0-37.0); MCV 90.4 fL (80.0-100.0); NEUTROPHILS 90.4 % (40-80); PLATELET COUNT 355 10x3/uL (130-400); RBC 3.34 10x6/uL (4.20-6.10); RDW 13.2 % (11.5-14.5); WBC 24.7 10x3/uL (4.8-10.8)
[2017-01-27 04:27] LABS: INR 1.23 (0.85-1.17); PROTIME 15.4 SECONDS (11.6-15.0)
[2017-01-27 04:28] LABS: APTT 35.9 SECONDS (22.8-39.4)
[2017-01-27 04:35] LABS: ALBUMIN 2.8 g/dL (3.4-5.0); ANION GAP 16.4 mmol/L (8-16); BILIRUBIN - TOTAL 0.61 mg/dL (0.2-1.3); CALCIUM 8.9 mg/dL (8.5-10.1); CARBON DIOXIDE 25.5 mmol/L (21.0-32.0); MAGNESIUM - SERUM 1.9 mg/dL (1.8-2.4); PHOSPHOROUS 7.9 mg/dL (2.5-4.9); PROTEIN - SERUM 7.9 g/dL (6.4-8.2); TROPONIN-I 0.017 ng/mL (0.000-0.060)
[2017-01-27 04:37] LABS: CREATININE - SERUM 2.4 mg/dL (0.6-1.3); POTASSIUM - SERUM 4.9 mmol/L (3.5-5.1)
--- NOTE | 2017-01-27 06:40 | NUR ---
0640: Pt SPO2 decreased at this time 88% and SBP decreased 80's on CM. Notified Dr. Santiago and Dr. Field. New orders rec'd. Fluid challenge given and NS increased to 75 cc/hr.
--- NOTE | 2017-01-27 06:45 | NUR ---
0645: Pt SBP 88-92 per ART line. Pt remains on vent with settings AC 22/550/100/Peep 5. Peak Pressure 25-26. No change in pt neuro status. Pupils remain 2- nonreactive bilaterally. Pt temp remains 99 F oral.
--- NOTE | 2017-01-27 07:00 | NUR ---
REPORT RECEIEVED FROM MINING MANAGER. PT LYING IN BED WITH A INTERCRANIAL DRAINGAE TUBE. LEVEL WITH PTS EAR. DRAINAGE CLEAR. PT UNRESPONSIVE TO STIMULI AND HAS ABSENT REFLEXES. PICC LINE TO RIGHT AC PATENT WITH FLUIDS INFUSING. SEE FLOW SHEET. DRESSING C/D/I. LEFT GROIN A LINE NOTED. ET TUBE 8 23 AT RIGHT SIDE OF LIPS. FC IN PLACE WITH DARK YELLOW CLEAR URINE. BUE SOFT WRIST RESRAINTS USED. CALL LIGHT IN REACH.
[2017-01-27 08:00] LABS: HEMATOCRIT 28.7 % (42.0-54.0); HEMOGLOBIN 9.5 g/dL (13.5-17.5)
--- NOTE | 2017-01-27 08:00 | NUR ---
SINGER AND UNLOADER IN ROOM ASSESSING PT. DUNIA HELD AND PT STILL ABSENT FROM CORNEAL REFLEXES AND NOT RESPONDING TO PAIN. SINGER AND UNLOADER SPOKE WITH FAMILY AND UPDATED THEM WITH PATIENTS CONDITION.
--- NOTE | 2017-01-27 09:00 | NUR ---
FAMILY VISITING WITH PT AT BED SIDE.
--- NOTE | 2017-01-27 09:00 | NUR ---
NEURO [place]UGUESE TUTOR SPOKE AT LENGTH WITH FATHER AND MOTHER RT/ PATIENT CONDITION.
--- NOTE | 2017-01-27 09:50 | NUR ---
JAMIA CALLED R/T PTS [facility] OF 3.
--- NOTE | 2017-01-27 10:00 | NUR ---
JAMIA CALLED BACK AND SPOKE WITH MAMADOU. AWARE OF PTS CONDITION.
--- NOTE | 2017-01-27 11:30 | NUR ---
CEFEPINE ABT INFUSING PER ORDRES. 0 S/SX OF ASE NOTED.
--- NOTE | 2017-01-27 14:44 | NUR ---
ORAL TEMP 100.5. BOX FAN TURNED ON FACEING PT. WILL RECHECK.
--- NOTE | 2017-01-27 15:15 | NUR ---
ORAL TEMP 99.8.
[2017-01-27 16:20] LABS: HEMATOCRIT 26.3 % (42.0-54.0); HEMOGLOBIN 8.9 g/dL (13.5-17.5)
--- NOTE | 2017-01-27 17:42 | NUR ---
TEMP 99.4. BOX FAN TURNED OFF.
--- NOTE | 2017-01-27 18:07 | NUR ---
NURSE SPOKE WITH FATHER RELATED TO CURRENT LAB RESULTS INDICATING NEED FOR BLOOD OR BLOOD PRODUCT TRANSFUSION AND PATIENTS LISTED EVANGELICAL. WITHOUT HESITATION FATHER REFUSES TRANSFUSION IN RELATION TO PATIENTS EVANGELICAL.
--- NOTE | 2017-01-27 19:00 | NUR ---
1900: Pt rec'd resting HOB 10 degrees with eyes open. Pupils 4mm and non reactive to light. Pt does not repsond to pain or threat stimuli. Pt does not cough with in-line sx. Pt remains on Vent as per flow sheet with pt [id number] with SPO2 97%. MMP and no cyanosis noted. Pt lungs sounds are decreased on the right with auscultation. S1S2 rapid ST 130's on CM with SBP 120-130 per NIBP. Left groin sheath intact with no s/s of bleeding or hematoma seen. Pressure line transduced to CM, but wf is flattened at times. Pt bilateral lower extrem pulses obtained easily with doppler. Skin warm and moist to touch Temp 100.1F oral. ABD soft NT BS absent x4. Che to gravity with approx 30 cc/hr dark concentrated UOP. OGT position confirmed with 30 cc air bolus and auscultation ret;d to LIS with minimal return. Pt has incision to right temporal part of forehead with V-Drain to 10mmhg, Drain leveled with ear and has clear drainage in collection system. Pt remains in isolation. Pt remains in bilateral soft wrist restraints. All monitors remain on and alarms intact.
--- NOTE | 2017-01-27 21:00 | NUR ---
2100: Family here at bedside. Discussed pt care and physical condition at length.
--- NOTE | 2017-01-27 22:00 | NUR ---
2200: No change in pt RESP/CV/NV status at this time. Remains ST 110 with SBP 120's. Remains on Vent with FIO2 100% and pt RR 22-26x with SPO2 97%. Temp 100.1 F oral. Fan on, Room temp adjusted, Cool cloth to chest, and all linens removed.
[2017-01-28] VITALS (78 sets, daily range): BP systolic 104–144; BP diastolic 60–95
--- NOTE | 2017-01-28 00:30 | NUR ---
0030: Pt remains on vent with FIO2 100% RR increased at times showing 36. Respiration quality asynchronus. Pt remains ST on CM 110-120 with SBP 130. No change in IVF/UOP. V-Drain remains in place and level with small amount of clear liquid drainage. Pt temp 100.3 Oral. Pt has occcasional decorticate posturing. Movement is not pronounced, but arms rotate inward.
[2017-01-28 00:58] LABS: HEMATOCRIT 23.3 % (42.0-54.0); HEMOGLOBIN 7.6 g/dL (13.5-17.5)
--- NOTE | 2017-01-28 02:00 | NUR ---
0200: Complete bath and linen changed at this time. V-Drain off during bath/turning. No grimmaces with movement. No cough with suction. Pt repositioned at this time with extrem off bed with pillow supports. Placed HOB at 30 degrees and V-drain leveled, zeroed, and drain stopcock back to open position at this time.
[2017-01-28 04:17] LABS: BASOPHILS 0.1 % (0-2); EOSINOPHILS 0.1 % (0-7); HEMATOCRIT 23.6 % (42.0-54.0); HEMOGLOBIN 7.9 g/dL (13.5-17.5); IMMATURE GRANULOCYTES 0.4 % (0-5); LYMPHOCYTES 12.8 % (15-50); MCH 29.7 pg (26.0-34.0); MCHC 33.5 g/dL (31.0-37.0); MCV 88.7 fL (80.0-100.0); MEAN PLATELET VOLUME 8.9 fL (7.4-10.4); MONOCYTES 6.2 % (2-11); NEUTROPHILS 80.4 % (40-80); PLATELET COUNT 346 10x3/uL (130-400); RBC 2.66 10x6/uL (4.20-6.10); RDW 13.1 % (11.5-14.5); WBC 10.5 10x3/uL (4.8-10.8)
[2017-01-28 04:26] LABS: INR 1.27 (0.85-1.17); PROTIME 15.8 SECONDS (11.6-15.0)
--- NOTE | 2017-01-28 04:45 | NUR ---
0445: ABG returned. FIO2 decreased to 80% at this time. No other vent changes at this time.
[2017-01-28 04:49] LABS: ALBUMIN 2.4 g/dL (3.4-5.0); ALKALINE PHOSPHATASE 58 U/L (46-116); ALT (SGPT) 24 U/L (10-68); BILIRUBIN - TOTAL 0.64 mg/dL (0.2-1.3); CALCIUM 8.7 mg/dL (8.5-10.1); CARBON DIOXIDE 24.6 mmol/L (21.0-32.0); CHLORIDE - SERUM 103 mmol/L (98-107); CREATINE KINASE 309 UL (21-232); CREATININE - SERUM 2.1 mg/dL (0.6-1.3); GLUCOSE 124 mg/dL (74-106); MAGNESIUM - SERUM 2.3 mg/dL (1.8-2.4); PROTEIN - SERUM 7.8 g/dL (6.4-8.2); SODIUM 137 mmol/L (136-145); eGFR NON AFRICAN AMERICAN 37 mL/min (90-120)
[2017-01-28 04:53] LABS: CALC OSMOLALITY 292 mosm/kg (275-300); PHOSPHOROUS 4.5 mg/dL (2.5-4.9); POTASSIUM - SERUM 4.1 mmol/L (3.5-5.1); UREA NITROGEN 62 mg/dL (7-18)
[2017-01-28 04:54] LABS: CKMB 1.6 U/L (0.0-3.6)
--- NOTE | 2017-01-28 04:55 | NUR ---
0455: Pt remains on vent with [id number] with SPO2 98%. ST 110's on CM with SBP 100's. Pt temp 99.0F oral. No change in neuro status. Pt remains unresponsive off any sedation gtts and with frequent decorticate posturing. V-Drain with <5cc/hr output of clear liquid drainage.
--- NOTE | 2017-01-28 07:30 | NUR ---
PT IN BED WITH EYES CLOSED. ON VENTILATOR MESURING 23 FROM RIGHT LIP. O2 SAT 98% WITH 80% O2. INTERCRAINIAL DRAIN TUBE WITH SEROUS DRAINGE NOTED. DRESSING C/D/I. OG TUBE PATENT CHECKED VIA A&A. PICC LINE TO RIGHT AC PATENT WITH IV FLUIDS INFUSING. LEFT GROIN A LINE PATENT 111/87. DURING ASSESSMENT, DECEREBRATE POSTURING NOTED. LEFT PUPIL 4MM SLUGGISH TO LIGHT AND RIGHT PUPIL 3ML SLUGGISH TO LIGHT. RESPONDS TO PAIN. NONVERBAL AND DOES NOT FOLLOW COMMANDS. WILL CONT POC.
[2017-01-28 08:15] LABS: HEMATOCRIT 22.6 % (42.0-54.0)
[2017-01-28 08:17] LABS: HEMOGLOBIN 7.5 g/dL (13.5-17.5)
--- NOTE | 2017-01-28 09:00 | NUR ---
FAMILY AT BEDSIDE AWARE OF PT'S CONDITION.
--- NOTE | 2017-01-28 09:35 | NUR ---
ORAL TEMP 100.3. BOX FAN TURNED ON AND FACING PT. WILL RECHECK.
--- NOTE | 2017-01-28 09:59 | NUR ---
AIR MATTRES PLACED UNDER PT AND FUNTIONAL.
--- NOTE | 2017-01-28 10:55 | NUR ---
ORAL TEMP RECHECK. 100.3. BOX FAN STILL ON AND FACING PT. WILL RECHECK AND MONITOR.
--- NOTE | 2017-01-28 13:07 | NUR ---
STARTED PULMOCARE AT 20ML/H WITH 25CC FLUSH Q4 HOURS. OG TUBE PATENTCY CHECKED VIA A&A. TOLERATING WELL.
--- NOTE | 2017-01-28 16:23 | NUR ---
H AND H DRAWN PER ORDERS. DELIEVERED TO LAB.
[2017-01-28 16:28] LABS: HEMATOCRIT 21.5 % (42.0-54.0)
--- NOTE | 2017-01-28 16:59 | NUR ---
H AND H RESULTS RECEIVED. 7 AND 21.5. FAMILY ARE [employer]AH[employer] WITNESS AND ARE REFUSEING BLOOD PRODUCTS. IS AWARE.
--- NOTE | 2017-01-28 19:00 | NUR ---
Received patient resting in bed with eyes closed, Assessment completed per flowsheet. Patient opens eyes but does not track, unresponsive to commands. Eyes PERRLA @ 3mm with sluggish response, sclera is reddened. EVD noted R forehead, covered with transparent dressing/sutures intact/5 abi noted. No drainage or bleeding noted, pink serous fluid noted in EVD container. ETT/OGT 8.0 @ 23cm R lipline, Pulmocare infusing @ 20ml/hr. S1/S2 noted NSR on telemetry with HR 98, rhythmic and regular. Vent settings A/C R-20 V-600 60% P-5, Lung sounds clear Bilateral upper with Rhochi noted R mid and diminished lower. Abdomen flat and soft, non-tender to palpation with bowel sounds hypoactive x4. Che secured in place, concentrated yellow urine noted in collection. A-line noted L groin, dressing CDI with no drainage or bleeding noted. Site is soft to palpation, A-line zeroed with good waveform. No movement all extremities with all pulses palpable, cap refill < 3 sec. SCD in use bilateral with air overlay on bed. Reddened area with some excoriation noted coccyx/buttocks. Unable to assess pain, patient repositioned for comfort/oral care suctioning provided. No further needs at this time, all VSS and will continue to monitor.
--- NOTE | 2017-01-28 20:30 | NUR ---
Dr Spencer paged with questions regarding serial H&H orders. Patient family refuses blood products based on muslim preferences. Will continue to monitor.
--- NOTE | 2017-01-28 20:45 | NUR ---
Vent alarm sounding, Paroxsysmal breathing observed by Guerrero COFFEY and Lashon RT. Will continue to monitor.
--- NOTE | 2017-01-28 21:00 | NUR ---
Family at bedside for visitation, spoke with son regarding current condition and plan of care. Family states understanding, no other questions at this time. Oral care/suctioning provided, no further needs at this time and will continue to monitor.
--- NOTE | 2017-01-28 21:15 | NUR ---
Tj called and spoke to Kristin COFFEY, states he has signed off on patient and does not need serial H&H testing. Orders cancelled.
--- NOTE | 2017-01-28 23:00 | NUR ---
Reassessment completed per flowsheet, patient laying in bed on vent. Patient withdraws from pain stimuli, opens eyes but does not track. S1/S2 noted NSR on telemetry with HR 92, rhythmic and regular. Vent settings unchanged from previous assessment with O2 sat 99%, lung sounds clear upper with rhonchi noted R mid and diminished lower. Forehead dressing adhered to skin, no bleeding or drainage noted. Sutures intact with 5 abi noted, pink serous drainage in collection. Oral care/suctioning provided, patient repositioned for comfort. No further needs at this time, all VSS and will continue to monitor.
[2017-01-29] VITALS (25 sets, daily range): BP systolic 112–143; BP diastolic 61–94
--- NOTE | 2017-01-29 01:00 | NUR ---
Patient laying in bed on vent, no changes to condition. Oral care/suctioning provided, patient repositioned for comfort. All VSS and will continue to monitor.
--- NOTE | 2017-01-29 01:30 | NUR ---
Spoke to patient joi, call in code given. Updated on current status, no further questions at this time.
--- NOTE | 2017-01-29 03:00 | NUR ---
Reassessment completed per flowsheet, patient laying in bed on vent. Patient opens eyes spontaneously but does not track, responds to pain stimuli. Forehaed dressing intact with no bleeding/drainage noted, sutures intact with 5 abi noted. Pupils 3mm bilateral with sluggish response, sclera reddened. S1/S2 noted NSR on telemetry with HR 96, rhythmic and regular. Vent settings unchanged from previous, O2 sat 100%. L groin dressing CDI, soft to palpation with no bleeding/drainage noted. Oral care/suctioning provided, patient repositioned for comfort. Unable to assess pain, no further needs at this time. All VSS and will continue to monitor.
--- NOTE | 2017-01-29 03:30 | NUR ---
Patient febrile with temp 100.6, PRN Tylenol given. Will reassess in 30 mins
[2017-01-29 04:49] LABS: BASOPHILS 0.2 % (0-2); EOSINOPHILS 0.2 % (0-7); HEMATOCRIT 22.2 % (42.0-54.0); IMMATURE GRANULOCYTES 0.6 % (0-5); LYMPHOCYTES 9.7 % (15-50); MCH 29.4 pg (26.0-34.0); MCHC 32.4 g/dL (31.0-37.0); MCV 90.6 fL (80.0-100.0); MEAN PLATELET VOLUME 9.1 fL (7.4-10.4); MONOCYTES 9.9 % (2-11); NEUTROPHILS 79.4 % (40-80); PLATELET COUNT 370 10x3/uL (130-400); RBC 2.45 10x6/uL (4.20-6.10); RDW 13.2 % (11.5-14.5); WBC 10.5 10x3/uL (4.8-10.8)
[2017-01-29 04:53] LABS: HEMOGLOBIN 7.2 g/dL (13.5-17.5)
[2017-01-29 05:03] LABS: ANION GAP 12.9 mmol/L (8-16); CALCIUM 8.5 mg/dL (8.5-10.1); CARBON DIOXIDE 25.2 mmol/L (21.0-32.0); MAGNESIUM - SERUM 2.3 mg/dL (1.8-2.4); POTASSIUM - SERUM 4.1 mmol/L (3.5-5.1)
[2017-01-29 05:08] LABS: CREATININE - SERUM 1.3 mg/dL (0.6-1.3); PHOSPHOROUS 2.6 mg/dL (2.5-4.9)
--- NOTE | 2017-01-29 09:19 | NUR ---
Nutrition follow-up: Pt intubated, sedated. Pulmocare infusing @ 20 ml/hr via OGT 25 ml H2O flush Q 4 hours Now with cranial bleed s/p Jaskaran hole Febrile this am. Wt: 215# Recommend advancing diet to 65 ml/hr RDN following.
--- NOTE | 2017-01-29 10:51 | NUR ---
PT ON VENT A/C-23 RESP 24. 40% FI02. NO SEDATION, PT OPENS EYES TO VERBAL STIMULI, DOES NOT FOLLOW COMMAND. VENTRICULAR DRAIN RT HEAD CDI. DRAINAGE CLEAR PINK.
--- NOTE | 2017-01-29 13:29 | NUR ---
PT TO CT ROOM, CALLED AND NOTIFIED SULEIMAN THAT CT HAS BEEN COMPLETED.
--- NOTE | 2017-01-29 19:00 | NUR ---
Received patient laying in bed on vent, Assessment completed per flowsheet. Patient opens eyes spontaneously, sometimes follows commands. Unable to assess LOC. EVD noted R upper forehead with clear dressing, No bleeding/drainage noted with sutures intact and 5 abi noted. EVD drain clamped, no drainage in collection. Eyes PERRLA @ 3mm with brisk response, sclera is reddened. ETT/OGT 8.0 @ 23cm R lipline, Pulmocare @ 20ml/hr ongoing. S1/S2 noted Sinus Tach on telemetry with HR 118, rhythmic and regular. Vent settings AC R-20 V-600 40% P-5, lung sounds clear upper with rhonchi mid and diminished lower. Abdomen is flat and soft, non-tender with bowel sounds hypoactive x4. ART line L groin with dressing CDI, zeroed with normal waveform. Che secured in place with concentrated yellow urine in collection. All extremities flaccid with decerebrate posturing noted, all pulses palpable with cap refill < 3 sec. PICC noted R AC, patent with NS @ 75ml/hr and Protonix @ 10ml/hr infusing. Patient on contact Isolation. Oral care/suctioning provided, repositioned for comfort. No further needs at this time, all VSS and will continue to monitor.
--- NOTE | 2017-01-29 21:00 | NUR ---
Patient family at bedside, discussed condition and answered all questions to family satisfaction. No further needs, all VSS and will continue to monitor.
--- NOTE | 2017-01-29 23:00 | NUR ---
Reassessment completed per flowsheet, patient laying in bed with eyes closed on vent. Eyes PERRLA @ 4mm with brisk response, sclera is reddened. No volutary movement seen, patient does not respond to commands. Decerebrate posturing noted. S1/S2 noted NSR on telemetry with HR 99, rhythmic and regular. Vent settings unchanged from previous, O2 sat 99%. Transparent dressing on R upper forhead, sutures intact/5 aib noted with no bleeding or drainage. L groin dressing CDI, Art line with good waveform. All pulses palpable, cap refill < 3 sec. Oral care/suctioning provided, patient repositioned for comfort. No further needs at this time, all VSS and will continue to monitor.
--- NOTE | 2017-01-29 23:10 | NUR ---
Patient mother called for updated status, call in code given. Discussed current condition, no further questions at this time.
[2017-01-30] VITALS (24 sets, daily range): BP systolic 116–139; BP diastolic 68–94
--- NOTE | 2017-01-30 01:00 | NUR ---
Patient laying in bed with eyes closed, vent settings unchanged. Oral care/suctioning provided, no further needs. All VSS and will continue to monitor.
--- NOTE | 2017-01-30 02:40 | NUR ---
Patient called for status update, call in code provided. Updated on status, all questions answered to satisfaction.
--- NOTE | 2017-01-30 03:04 | NUR ---
Reassessment completed per flowsheet, patient condition unchanged. R upper Forehead incision covered with transparent dressing, sutures intact/5 abi noted with no bleeding or drainage. S1/S2 noted Sinus Tach on telemetry with HR 102, rhythmic and regular. Vent settings unchanged from previous, O2 sat 97%. L groin A-line site soft to palpation, dressing CDI. No further needs at this time, all VSS and will continue to monitor.
[2017-01-30 04:27] LABS: BASOPHILS 0.2 % (0-2); EOSINOPHILS 0.3 % (0-7); HEMATOCRIT 23.6 % (42.0-54.0); IMMATURE GRANULOCYTES 2.4 % (0-5); LYMPHOCYTES 12.5 % (15-50); MCH 29.4 pg (26.0-34.0); MCHC 31.4 g/dL (31.0-37.0); MEAN PLATELET VOLUME 8.9 fL (7.4-10.4); MONOCYTES 14.2 % (2-11); NEUTROPHILS 70.4 % (40-80); PLATELET COUNT 387 10x3/uL (130-400); RBC 2.52 10x6/uL (4.20-6.10); RDW 13.8 % (11.5-14.5); WBC 12.9 10x3/uL (4.8-10.8)
[2017-01-30 04:31] LABS: HEMOGLOBIN 7.4 g/dL (13.5-17.5); MCV 93.7 fL (80.0-100.0)
[2017-01-30 04:38] LABS: CALC OSMOLALITY 299 mosm/kg (275-300); CALCIUM 8.7 mg/dL (8.5-10.1); CARBON DIOXIDE 23.9 mmol/L (21.0-32.0); CHLORIDE - SERUM 114 mmol/L (98-107); GLUCOSE 119 mg/dL (74-106); POTASSIUM - SERUM 4.2 mmol/L (3.5-5.1); SODIUM 146 mmol/L (136-145); UREA NITROGEN 35 mg/dL (7-18); eGFR NON AFRICAN AMERICAN 88 mL/min (90-120)
--- NOTE | 2017-01-30 05:00 | NUR ---
Patient laying in bed with eyes closed, decerebrate posturing noted. No voluntary movement, no response to commands. Oral care/suctioning provided, repositioned for comfort. No further needs and will continue to monitor.
--- NOTE | 2017-01-30 06:40 | NUR ---
Family requested to speak to Dr Worley, spoke to family at bedside regarding condition.
--- NOTE | 2017-01-30 07:30 | NUR ---
PT LYING IN BED. HAS A DRAINAGE TUBE TO RIGHT SIDE OF HEAD. DRESSING C/D/I. DRAINAGE TUBE CLAMPED OFF PER ORDERS. 8 ET TUBE 23 AT THE RIGHT LIP. RIGHT PICC LINE WITH IV FLUIDS INFUSING. DRESSING C/D/I. FC PATENT WITH ZEE CONCETRATED URINE NOTED. A LINE 120/70 TO LEFT GROIN WITH C/D/I DRESSING. BOX FAN BLOWING TOWARDS PT. TEMP 101.3. PT UNRESPONSIVE WITH A GCS OF 3. PUPILS FIXED AT 2. RESPONDS TO PAIN WITH DECEREBRATE POSTURING. HAS A POSITIVE BABENSKI. WILL CONT TO MONITOR.
--- NOTE | 2017-01-30 08:00 | NUR ---
DR NAIR AT BEDSIDE WITH FAMILY WITH PLANS TO REMOVE INTERCEREBRAL DRAIN. CONSULTED DR BURNHAM WITH PLANS FOR EEG. FAMILY AWARE OF NEW ORDERS.
--- NOTE | 2017-01-30 12:06 | NUR ---
KENO CLERK AT BED SIDE.
--- NOTE | 2017-01-30 13:30 | NUR ---
DR BURNHAM ASSESSING PT.
--- NOTE | 2017-01-30 15:30 | NUR ---
DR BURNHAM ASSESSING PT.
--- NOTE | 2017-01-30 16:00 | NUR ---
DR BURNHAM HAD A LONG DISCUSSION ABOUT PT AND PROGNOSIS. FAMILY STATED THEY NEEDED MORE TIME TO SPEAK WITH OTHER FAMILY MEMBERS TO DETERMINE CODE STATUS.
--- NOTE | 2017-01-30 16:02 | NUR ---
PT REMAINS UNRESPONSIVE RESPONDING TO PAINFUL STIMULI WITH DECEREBRATE POSTURING. VS STABLE 123/88, 115 SINUS TACH. 20 RESP ON THE VENT 96%O2 AT 30%FIO2. PUPILS 3MM AND SLUGGISH TO LIGHT. NO S/SX OF DISTRESS/DISCOMFORT AT THIS TIME. WILL CONT MONITOR.
--- NOTE | 2017-01-30 18:02 | NUR ---
FACE WASHED WITH WASH CLOTH AND REPOSITION TO PROMOTE SKIN INTEIGRITY AND COMFORT.
--- NOTE | 2017-01-30 18:46 | NUR ---
PT LYING WITH 0 S/SX OF DISTRESS/DISCOMFORT NOTED. BREATHING NORMAL AND UNLABORED. CALL LIGHT IN REACH.
--- NOTE | 2017-01-30 19:00 | NUR ---
Received patient laying in bed on vent, Assessment completed per flowsheet. Patient unresponsive, decerebrate posturing noted with pain stimuli. Eyes PERRLA @ 4mm with brisk response, sclera is reddened. Incision R upper forehead, 5 abi noted with no drainage/bleeding. ETT/OGT 8.0 @ 23cm secured, Pulmocare infusing @ 20ml/hr. Vent settings R-20 V-600 30% P-5, lung sounds clear bilateral upper rhonchi mid with diminished lower. Paradoxical breathing pattern observed. Abdomen is flat and soft, non-tender with bowel sounds hypoactive x4. Che secured in place, concentrated yellow urine noted. All extremities flaccid with all pulses palpable, cap refill <3 sec. A-line noted L groin, zeroed with good waveform. L groin dressing CDI, site soft to palpation with no bleeding/drainage noted. Unable to assess pain at this time, oral care/suctioning provided. No further needs, all VSS and will continue to monitor.
--- NOTE | 2017-01-30 19:20 | NUR ---
Family decided to change code status to DNR, confirmed by Guerrero COFFEY and Becky COFFEY. Dr Bundy notifed and new order put in system.
--- NOTE | 2017-01-30 21:00 | NUR ---
Patient laying in bed with eyes closed, family at bedside. Updated family on status, no questions at this time. All VSS and will continue to monitor.
--- NOTE | 2017-01-30 22:30 | NUR ---
JAMIA called, updated on patient status. Requested call if family removes life support measures or patient confirmed brain .
--- NOTE | 2017-01-30 23:00 | NUR ---
Reassessment completed per flowsheet, patient resting in bed with eyes closed. Patient unresponsive to commands, decerebrate posturing to pain stimuli. Eyes PERRLA @ 3mm with brisk response, sclera is reddened. S1/S2 noted Sinus Tach on telemetry with HR 100, rhythmic and regular. Vent setting unchanged from previous assessment with O2 sat 97%, paradoxical breathing pattern frequently noted. R forehead incision noted with 5 abi, no bleeding or drainage. L groin A-line site dressing CDI, soft to palpation with no bleeding or drainage. All pulses palpable with cap refill < 3 sec. Oral care/suctioning provided, patient repositioned for comfort. No further needs at this time, all VSS and will continue to monitor.
--- NOTE | 2017-01-30 23:47 | NUR ---
Spoke to Nicole (Mother) via telephone, updated on patient status. Mother concerned about new DNR status, explained how DNR status is treated and that patient will continue to recieve treatment. Mother stated reassurance and may call again to "just check up on him".
[2017-01-31] VITALS (24 sets, daily range): BP systolic 104–134; BP diastolic 65–85
--- NOTE | 2017-01-31 00:50 | NUR ---
Patient transferred from 2300 to 2311. Patient reconnected to monitors, all VSS and will continue to monitor.
--- NOTE | 2017-01-31 02:00 | NUR ---
Complete bed bath/linen change performed, patient tolerated well. Dressing changed on R AC PICC per protocol, no further needs at this time.
--- NOTE | 2017-01-31 02:50 | NUR ---
Reassessment completed per flowsheet, patient laying in bed on vent. No purposeful movement/does not follow commands, decerebrate posturing noted. Jaskaran Hole incision no drainage/bleeding noted, 5 abi noted. S1/S2 noted Sinus Tach on telemetry with HR 110, rhythmic and regular. Vent settings unchanged from previous assessment with O2 sat 96%, Paradoxical breathing pattern noted. All pulses palpable with cap refill < 3 sec, oral care/suctioning provided. Patient repositioned for comfort, no further needs at this time. All VSS and will continue to monitor.
--- NOTE | 2017-01-31 05:00 | NUR ---
Patient laying in bed with eyes closed, no changes in patient condition. Oral care/suctioning provided, repositioned for comfort. No further needs at this time, all VSS and will continue to monitor.
[2017-01-31 05:15] LABS: BASOPHILS 0.3 % (0-2); EOSINOPHILS 2.5 % (0-7); IMMATURE GRANULOCYTES 4.5 % (0-5); MCHC 30.8 g/dL (31.0-37.0); MCV 94.1 fL (80.0-100.0); MEAN PLATELET VOLUME 9.2 fL (7.4-10.4); MONOCYTES 16.6 % (2-11); NEUTROPHILS 62.1 % (40-80); PLATELET COUNT 423 10x3/uL (130-400); RBC 2.55 10x6/uL (4.20-6.10); RDW 13.9 % (11.5-14.5); WBC 14.8 10x3/uL (4.8-10.8)
[2017-01-31 05:16] LABS: HEMOGLOBIN 7.4 g/dL (13.5-17.5)
[2017-01-31 05:43] LABS: CALC OSMOLALITY 304 mosm/kg (275-300); CARBON DIOXIDE 22.5 mmol/L (21.0-32.0); CHLORIDE - SERUM 115 mmol/L (98-107); CREATINE KINASE 54 UL (21-232); GLUCOSE 116 mg/dL (74-106); POTASSIUM - SERUM 4.2 mmol/L (3.5-5.1); SODIUM 149 mmol/L (136-145); UREA NITROGEN 35 mg/dL (7-18); eGFR NON AFRICAN AMERICAN 88 mL/min (90-120)
[2017-01-31 05:47] LABS: CALCIUM 8.7 mg/dL (8.5-10.1)
--- NOTE | 2017-01-31 07:30 | NUR ---
REPORT RECD PT CARE ASSUMED. PT IS ON VENTILATOR, W/O SEDATION. PT OPENS EYES DOES NOT FOLLOW COMMANDS. PUPILS NOTED TO BE UNEQUAL. S1S2 NOTED, SR PER CM. ADVENTICIOUS LUNG SOUNDS AUSCULTATED BILAT. RUSSO/SCDS IN PLACE. SEE SHIFT ASSESSMENT FOR FURTHER DETAIL. WILL MONITOR.
--- NOTE | 2017-01-31 09:30 | NUR ---
PT REPOSITIONED. ORAL CARE AND SUCTIONED PROVIDED.
--- NOTE | 2017-01-31 09:53 | NUR ---
NUTRITION MONITORING & EVAL PT REMAINS IN ISOLATION ON VENT. PULMOCARE @ 20 CCC/HR WITH CURRENT GOAL RATE 65 CC/HR. RD FOLLOWING
--- NOTE | 2017-01-31 11:30 | NUR ---
RESIDUALS LESS THAN 10. TUBE FEED INCREASED TO 30 CC/HR. BLINK REFLEX NOTED.
--- NOTE | 2017-01-31 13:00 | NUR ---
PT REPOSITONED, ORAL CARE AND SUCTIONED PROVIDED. VSS.
--- NOTE | 2017-01-31 15:00 | NUR ---
PT FAMILY AT BEDSIDE FOR VISITATION. UPDATE PROVIDED.
--- NOTE | 2017-01-31 18:00 | NUR ---
PT FAMILY AT BEDSIDE. PT RESPONDS TO STIMULI WITH GRIMACE AND MOVES LEGS.
--- NOTE | 2017-01-31 19:00 | NUR ---
REPORT RECIEVED, SHIFT ASSESSMENT COMPLETE, PT IS ON VENT, EYES OPENS SPONTANEOULY, DOES NOT FOLLOW COMMANDS, ON 30% FIO2 WITH 98% O2 SAT. CRACKLES HEARD IN B/L UPPER LOBES, DIMINISHED IN B/L LOWER LOBES, S1S2, CM-NSR, PATENT OGT WITH PULMOCARE INFUSING @ 30 ML/HR INFUSING VIA PUMP, PATENT RIGHT UPPER ARM PICC...SEE IV FLOW SHEET..ABDOMEN IS SOFT AND FLAT WITH HYPO ACTIVE BS, PATENT LEFT GROIN EUGENE..GOOD WAVEFORM...PATENT F/C WITH YELLOW UOP, EDEMA NOTED IN ALL EXTREMETIES, ALL PPP, VSS, WILL CON'T TO MONITOR
--- NOTE | 2017-01-31 21:00 | NUR ---
FAMILY AT BEDSIDE, UPDATE GIVEN
--- NOTE | 2017-01-31 23:14 | NUR ---
REASSESSMENT COMPLETE, NO CHANGES NOTED, PT RESTING AT THIS TIME, NO NEEDS NOTED, REPOSITIONED FOR COMFORT, ORAL CARE PROVIDED,
[2017-02-01] VITALS (26 sets, daily range): BP systolic 114–141; BP diastolic 60–89
--- NOTE | 2017-02-01 03:15 | NUR ---
REASSESSMENT COMPLETE, NO CHANGES NOTED, PT RESTING AT THIS TIME, REPOSITIONED FOR COMFORT, ORAL COMPLETE,
[2017-02-01 04:05] LABS: BASOPHILS 0.4 % (0-2); EOSINOPHILS 4.7 % (0-7); HEMATOCRIT 24.8 % (42.0-54.0); HEMOGLOBIN 7.6 g/dL (13.5-17.5); LYMPHOCYTES 15.5 % (15-50); MCH 28.8 pg (26.0-34.0); MCHC 30.6 g/dL (31.0-37.0); MCV 93.9 fL (80.0-100.0); MEAN PLATELET VOLUME 9.3 fL (7.4-10.4); MONOCYTES 14.1 % (2-11); NEUTROPHILS 58.3 % (40-80); PLATELET COUNT 461 10x3/uL (130-400); RBC 2.64 10x6/uL (4.20-6.10); RDW 14.5 % (11.5-14.5); WBC 15.2 10x3/uL (4.8-10.8)
[2017-02-01 04:09] LABS: CALC OSMOLALITY 306 mosm/kg (275-300); CALCIUM 8.8 mg/dL (8.5-10.1); CARBON DIOXIDE 23.5 mmol/L (21.0-32.0); CHLORIDE - SERUM 115 mmol/L (98-107); CREATININE - SERUM 0.9 mg/dL (0.6-1.3); GLUCOSE 115 mg/dL (74-106); POTASSIUM - SERUM 4.2 mmol/L (3.5-5.1); SODIUM 150 mmol/L (136-145); UREA NITROGEN 36 mg/dL (7-18); eGFR NON AFRICAN AMERICAN > 90 mL/min (90-120)
--- NOTE | 2017-02-01 05:15 | NUR ---
REPOSITIONED FOR COMFORT, ORAL CARE PROVIDED,
--- NOTE | 2017-02-01 10:25 | NUR ---
NUTRITION MONITORING & EVAL CHART REVIEWED. PT REMAINS ON VENT. PULMOCARE @ 30 CC/HR WITH GOAL RATE 65 CC/HR. 100 CC H2O FLUSH Q 6 HOURS PER MD. ETIENNE FOLLOWING
--- NOTE | 2017-02-01 19:02 | NUR ---
PT TO MRI AND BCK TO ICU. PT CONNIE WELL.
--- NOTE | 2017-02-01 19:25 | NUR ---
REPORT RECIEVED, SHIFT ASSESSMENT COMPLETE, PT IS ON VENT, FOLLOWS COMMANDS WITH HIS EYES, ON 30% FIO2 WITH 98% O2 SAT. CRACKLES HEARD IN B/L UPPER LOBES, DIMINIHSED IN B/L LOWER LOBES, S1S2, CM-ST, PATENT RIGHT UPPER ARM PICC...SEE IV FLOW SHEET...ABDOMEN IS SOFT AND FLAT WITH HYPO BS, PATENT F/C WITH YELLOW UOP, EDEMA NOTED IN ALL EXTREMETIES, ALL PPP, VSS, WILL CON'T TO MONITOR
--- NOTE | 2017-02-01 21:15 | NUR ---
FAMILY AT BEDSIDE, UPDATE GIVEN
--- NOTE | 2017-02-01 23:00 | NUR ---
REASSESSMENT COMPLETE, NO CHANGES NOTED, PT RESTING AT THIS TIME, REPOSITIONED FOR COMFORT, ORAL CARE PROVIDED
[2017-02-02] VITALS (23 sets, daily range): BP systolic 116–146; BP diastolic 69–94
--- NOTE | 2017-02-02 01:00 | NUR ---
REPOSITIONED FOR COMFORT, ORAL CARE PROVIDED,
--- NOTE | 2017-02-02 03:15 | NUR ---
RAD IN ROOM FOR DAILY CXR
--- NOTE | 2017-02-02 05:00 | NUR ---
REPOSITIONED FOR COMFORT, ORAL CARE PROVIDED,
[2017-02-02 05:12] LABS: BASOPHILS 0.7 % (0-2); HEMATOCRIT 25.9 % (42.0-54.0); HEMOGLOBIN 8.1 g/dL (13.5-17.5); IMMATURE GRANULOCYTES 11.5 % (0-5); LYMPHOCYTES 16.5 % (15-50); MCH 29.2 pg (26.0-34.0); MCHC 31.3 g/dL (31.0-37.0); MCV 93.5 fL (80.0-100.0); MEAN PLATELET VOLUME 9.6 fL (7.4-10.4); MONOCYTES 11.5 % (2-11); NEUTROPHILS 53.8 % (40-80); PLATELET COUNT 495 10x3/uL (130-400); RBC 2.77 10x6/uL (4.20-6.10); RDW 14.2 % (11.5-14.5); WBC 16.4 10x3/uL (4.8-10.8)
[2017-02-02 05:39] LABS: ANION GAP 14.9 mmol/L (8-16); CARBON DIOXIDE 22.2 mmol/L (21.0-32.0); CREATININE - SERUM 1.2 mg/dL (0.6-1.3); POTASSIUM - SERUM 4.1 mmol/L (3.5-5.1)
--- NOTE | 2017-02-02 06:21 | NUR ---
FAMILY AT BEDSIDE, PT NOW ABLE TO SQUEEZE WITH RIGHT HAND,
--- NOTE | 2017-02-02 19:06 | NUR ---
TEMP 102.5, PHYSICIAN ORDERS FOLLOWED FOR BLOOD CULTURES TO BE DRAWN. ICE PKS APPLIED.
--- NOTE | 2017-02-02 19:30 | NUR ---
REPORT RECVD. CARE ASSUMED. INITIAL ASSMNT COMPLETED. SEE FLOWSHET FOR ALL FINDINGS. MINIMALLY RESPONSIVE ON MECH VENT. NO SEDATION IN USE. EYES OPEN. TRACKING SEEN. FOLLOWS SOME COMMANDS. PERRLA NOTED. MECH VENT ON AC. 30% FIO2. LUNG SOUNDS DIM IN ALL LOBES. SCANT CRACKLES TO UPPER LOBES. S1S2 REG[address] ST ON THE MONITOR. PULSES PALP. SCDS IN USE. FEBRILE AT THIS TIME. BLOOD CX DRAWN PER ORDERS. ABD SOFT. BSA X4. TF INFUSING TO OGT NO DIFF. F/C PATENT WITH ZEE UOP SEEN. AIR OVERLAY IN USE. TURNED AND REPOSITIONED. ORAL CARE PER VAP. HOB UP. RESTRAINTS PER PROTOCOL. CONT CURRENT POC.
--- NOTE | 2017-02-02 21:20 | NUR ---
FAMILY AT BEDSIDE. UPDATE GIVEN. TEACHING COMPLETED. TURNED AND REPOSITIONED WITH ORAL CARE PER VAP. VSS. CONT CURRENT POC.
--- NOTE | 2017-02-02 23:30 | NUR ---
REASSESSMENT COMPLETED. SEE FLOWSHEET FOR ALL FINDINGS. MINIMALLY RESPONSIVE ON MECH VENT. NO SEDATION IN USE. EYES OPEN. TRACKING SEEN. FOLLOWS SOME COMMANDS. PERRLA NOTED. MECH VENT ON AC. 30% FIO2. LUNG SOUNDS DIM IN ALL LOBES. SCANT CRACKLES TO UPPER LOBES. S1S2 REG[address] ST ON THE MONITOR. PULSES PALP. SCDS IN USE. AFEBRILE AT THIS TIME. ABD SOFT. BSA X4. TF INFUSING TO OGT NO DIFF. F/C PATENT WITH ZEE UOP SEEN. AIR OVERLAY IN USE. TURNED AND REPOSITIONED. ORAL CARE PER VAP. HOB UP. RESTRAINTS PER PROTOCOL. CONT CURRENT POC.
[2017-02-03] VITALS (24 sets, daily range): BP systolic 114–151; BP diastolic 75–99
--- NOTE | 2017-02-03 01:05 | NUR ---
TURNED AND REPOSITIONED. ORAL CARE PER VAP. VSS. ON MECH VENT. SPO2 97%. HOB UP. RESTRAINTS PER PROTOCOL. CONT CURRENT POC.
--- NOTE | 2017-02-03 03:20 | NUR ---
REASSESSMENT COMPLETED. SEE FLOWSHEET FOR ALL FINDINGS. MINIMALLY RESPONSIVE ON MECH VENT. NO SEDATION IN USE. EYES OPEN. TRACKING SEEN. FOLLOWS SOME COMMANDS. PERRLA NOTED. MECH VENT ON AC. 30% FIO2 LUNG SOUNDS DIM IN ALL LOBES. SCANT CRACKLES TO UPPER LOBES. S1S2 REG[address] ST ON THE MONITOR. PULSES PALP. SCDS IN USE. AFEBRILE AT THIS TIME. ABD SOFT. BSA X4. TF INFUSING TO OGT NO DIFF. F/C PATENT WITH TURBID ZEE UOP SEEN. AIR OVERLAY IN USE. TURNED AND REPOSITIONED. ORAL CARE PER VAP. HOB UP. RESTRAINTS PER PROTOCOL. CONT CURRENT POC.
[2017-02-03 04:38] LABS: BASOPHILS 0.5 % (0-2); EOSINOPHILS 2.8 % (0-7); HEMATOCRIT 26.3 % (42.0-54.0); HEMOGLOBIN 8.1 g/dL (13.5-17.5); LYMPHOCYTES 13.3 % (15-50); MCH 28.9 pg (26.0-34.0); MCHC 30.8 g/dL (31.0-37.0); MCV 93.9 fL (80.0-100.0); MEAN PLATELET VOLUME 9.5 fL (7.4-10.4); MONOCYTES 10.1 % (2-11); NEUTROPHILS 63.3 % (40-80); PLATELET COUNT 510 10x3/uL (130-400); RDW 14.4 % (11.5-14.5); WBC 19.2 10x3/uL (4.8-10.8)
[2017-02-03 04:48] LABS: CALC OSMOLALITY 303 mosm/kg (275-300); CALCIUM 8.4 mg/dL (8.5-10.1); CARBON DIOXIDE 23.5 mmol/L (21.0-32.0); CHLORIDE - SERUM 114 mmol/L (98-107); CREATININE - SERUM 1.1 mg/dL (0.6-1.3); GLUCOSE 111 mg/dL (74-106); SODIUM 147 mmol/L (136-145); UREA NITROGEN 42 mg/dL (7-18); eGFR NON AFRICAN AMERICAN 79 mL/min (90-120)
--- NOTE | 2017-02-03 05:10 | NUR ---
TURNED AND REPOSITIONED. ORAL CARE PER VAP. VSS. HOB UP. CONT CURRENT POC.
--- NOTE | 2017-02-03 06:04 | NUR ---
MOM AT BEDSIDE. UPDATE GIVEN.
--- NOTE | 2017-02-03 07:15 | NUR ---
RECEIVED PT FOR CARE. ASSESSMENT COMPLETED. VSS AT THIS TIME.
--- NOTE | 2017-02-03 09:15 | NUR ---
PT'S FAMILY AT BEDSIDE. UPDATED ON PT'S STATUS.
--- NOTE | 2017-02-03 11:30 | NUR ---
NO CHANGES NOTED
--- NOTE | 2017-02-03 14:00 | NUR ---
PT HAD COMPLETE BATH AND LINEN CHANGE. PT TOLERATED WELL. ORAL CARE GIVEN. PT'S SCROTUM AND FABIANA-AREA RAW AND RED. PASTE APPLIED. NO BREAKDOWN NOTED TO BUTTOCK, BUT DRY AND PEELING SKIN NOTED. ALL AREAS BLANCHABLE.
--- NOTE | 2017-02-03 16:30 | NUR ---
EYES OPEN. TURNED TV ON AND PT WATCHING TELEVISION. STILL NOT FOLLOWING COMMANDS FOR ME.
--- NOTE | 2017-02-03 19:30 | NUR ---
REPORT RECVD. CARE ASSUMED. INITIAL ASSMNT COMPLETED. SEE FLOWSHET FOR ALL FINDINGS. MINIMALLY RESPONSIVE ON MECH VENT. NO SEDATION IN USE. EYES OPEN. TRACKING SEEN. FOLLOWS SOME COMMANDS. PERRLA NOTED. MECH VENT ON AC. 30% FIO2. LUNG SOUNDS DIM IN ALL LOBES. SCANT CRACKLES TO UPPER LOBES. S1S2 REG[address] ST ON THE MONITOR. PULSES PALP. WEAK IN LOWER EXT. SCDS PER PROTOCOL. ABD SOFT. BSA X4. TF INFUSING TO OGT NO DIFF. F/C PATENT WITH ZEE UOP SEEN. AIR OVERLAY IN USE. TURNED AND REPOSITIONED. ORAL CARE PER VAP. HOB UP. RESTRAINTS PER PROTOCOL. CONT CURRENT POC.
--- NOTE | 2017-02-03 21:05 | NUR ---
TURNED AND REPOSITIONED. ORAL CARE PER VAP. FAMILY AT BEDSIDE FOR VISITATION. UPDATE GIVEN. NO SIG CHANGES. CONT CURRENT POC.
[2017-02-04] VITALS (24 sets, daily range): BP systolic 117–147; BP diastolic 74–96
--- NOTE | 2017-02-04 01:08 | NUR ---
TURNED AND REPOSITIONED WITH ORAL CARE PER VAP. NO SIG CHANGES NOTED. VSS. HOB UP. CONT CURRENT POC.
[2017-02-04 04:55] LABS: BASOPHILS 0.3 % (0-2); EOSINOPHILS 0.8 % (0-7); HEMATOCRIT 26.4 % (42.0-54.0); IMMATURE GRANULOCYTES 5.3 % (0-5); LYMPHOCYTES 10.2 % (15-50); MCH 28.8 pg (26.0-34.0); MCHC 30.3 g/dL (31.0-37.0); MONOCYTES 8.8 % (2-11); NEUTROPHILS 74.6 % (40-80); PLATELET COUNT 537 10x3/uL (130-400); RBC 2.78 10x6/uL (4.20-6.10); RDW 14.7 % (11.5-14.5); WBC 29.8 10x3/uL (4.8-10.8)
--- NOTE | 2017-02-04 05:05 | NUR ---
TURNED AND REPOSITIONED. ORAL CARE PER VAP. NO SIG CHANGES. VSS. ST ON THE MONITOR. SPO2 97% ON MECH VENT. HOB UP. RESTRAINTS PER PROTOCOL. CONT CURRENT POC.
[2017-02-04 05:07] LABS: ALBUMIN 2.3 g/dL (3.4-5.0); ANION GAP 16.2 mmol/L (8-16); BILIRUBIN - TOTAL 0.67 mg/dL (0.2-1.3); CALCIUM 8.5 mg/dL (8.5-10.1); CARBON DIOXIDE 22.7 mmol/L (21.0-32.0); CREATININE - SERUM 1.3 mg/dL (0.6-1.3); MAGNESIUM - SERUM 2.2 mg/dL (1.8-2.4); PHOSPHOROUS 3.8 mg/dL (2.5-4.9); POTASSIUM - SERUM 3.9 mmol/L (3.5-5.1); PROTEIN - SERUM 8.2 g/dL (6.4-8.2)
--- NOTE | 2017-02-04 06:20 | NUR ---
FAMILY AT BEDSIDE. UPDATE GIVEN.
--- NOTE | 2017-02-04 07:30 | NUR ---
REPORT RECIEVED, SHIFT ASSESSMENT COMPLETE. SEE FLOWSHEET FOR DETAILS. PT TRACKS WITH EYES WHEN SPOKEN TO. DOES NOT FOLLOW COMMANDS TO SQUEEZE HANDS. MOVES RIGHT HAND SOME ON PILLOW. LOWER EXTREMITIES FLACCID. EXCORIATION TO FABIANA-AREA. ANIKA NOTED TO RIGHT FOREHEAD, SKIN WNL. SCD'S ON. ON VENTILATOR AT 30%, SATS GREATER THAN 96%.
--- NOTE | 2017-02-04 09:16 | NUR ---
FAMILY AT BEDSIDE FOR 9AM VISITATION. DR WILSON HAS BEEN BY TO SEE PATIENT PRIOR TO VISITATION HOURS.
--- NOTE | 2017-02-04 11:00 | NUR ---
REASSESSMENT COMPLETE. PT RESTING AT THIS TIME. TEMP STILL ELEVATED ABOVE 100. WILL CONTINUE TO MONITOR.
--- NOTE | 2017-02-04 12:05 | NUR ---
FAMILY AT BEDSIDE FOR NOON TIME VISITATION. PT SLEEPING. NO DISTRESS NOTED.
--- NOTE | 2017-02-04 15:23 | NUR ---
FAMILY AT BEDSIDE AT THIS TIME. PT AWAKE, EYES OPEN.
--- NOTE | 2017-02-04 17:48 | NUR ---
PT RESTING WITH EYES CLOSED AT THIS TIME. HR 130'S. TEMP STILL ELEVATED 100.5 AT THIS TIME. PT REPOSITIONED FOR COMFORT.
--- NOTE | 2017-02-04 19:30 | NUR ---
REPORT RECVD. CARE ASSUMED. INITIAL ASSMNT COMPLETED. SEE FLOWSHET FOR ALL FINDINGS. MINIMALLY RESPONSIVE ON MECH VENT. NO SEDATION IN USE. EYES OPEN. TRACKING SEEN. FOLLOWS SOME COMMANDS. PERRLA NOTED. MECH VENT ON AC. 30% FIO2 LUNG SOUNDS DIM IN ALL LOBES. SCANT CRACKLES TO UPPER LOBES. S1S2 REG. ST ON THE MONITOR. PULSES PALP. WEAK IN LOWER EXT. SCDS PER PROTOCOL. ABD SOFT. BSA X4. TF INFUSING TO OGT NO DIFF. F/C PATENT WITH ZEE UOP SEEN. AIR OVERLAY IN USE. TURNED AND REPOSITIONED. ORAL CARE PER VAP. HOB UP. RESTRAINTS PER PROTOCOL. CONT CURRENT POC.
--- NOTE | 2017-02-04 21:30 | NUR ---
FAMILY AT BEDSIDE FOR VISITATION. UPDATE GIVEN. HS MEDS PER OGT. PLACEMENT VERIFIED. FLUSHES PRE AND POST MEDS. TURNED AND REPOSITIONED. ORAL CARE PER VAP. HOB UP.RESTRAINTS PER PROTOCOL. CONT CURRENT POC.
[2017-02-05] VITALS (24 sets, daily range): BP systolic 102–140; BP diastolic 62–89
--- NOTE | 2017-02-05 01:02 | NUR ---
TURNED AND REPOSITIONED. ORAL CARE PER VAP. NO SIG CHANGES NOTED. HOB UP. RESTRAINTS PER PROTOCOL. CONT CURRENT POC.
--- NOTE | 2017-02-05 03:00 | NUR ---
BATH GIVEN. LINENS CHANGED.
[2017-02-05 05:41] LABS: HEMATOCRIT 26.7 % (42.0-54.0); HEMOGLOBIN 8.1 g/dL (13.5-17.5); MCH 28.5 pg (26.0-34.0); MCHC 30.3 g/dL (31.0-37.0); MEAN PLATELET VOLUME 9.6 fL (7.4-10.4); PLATELET COUNT 521 10x3/uL (130-400); RBC 2.84 10x6/uL (4.20-6.10); RDW 14.9 % (11.5-14.5); WBC 32.1 10x3/uL (4.8-10.8)
[2017-02-05 05:46] LABS: PLATELET ESTIMATE INCREASED
[2017-02-05 05:47] LABS: PLATELET MORPHOLOGY NORMAL PLT MORPH
[2017-02-05 05:48] LABS: LYMPHOCYTES 10 % (15-50); MONOCYTES 5 % (2-11); NEUTROPHILS 80 % (40-80)
[2017-02-05 05:55] LABS: ALBUMIN 2.2 g/dL (3.4-5.0); ANION GAP 16.3 mmol/L (8-16); BILIRUBIN - TOTAL 0.7 mg/dL (0.2-1.3); CALCIUM 8.5 mg/dL (8.5-10.1); CARBON DIOXIDE 21.4 mmol/L (21.0-32.0); CREATININE - SERUM 1.3 mg/dL (0.6-1.3); MAGNESIUM - SERUM 2.5 mg/dL (1.8-2.4); POTASSIUM - SERUM 3.7 mmol/L (3.5-5.1); PROTEIN - SERUM 8.2 g/dL (6.4-8.2)
--- NOTE | 2017-02-05 07:22 | NUR ---
PER FAMILY WISHES, PT IS NOW A FULL CODE. DNR RESCENDED.
--- NOTE | 2017-02-05 07:30 | NUR ---
SHIFT ASSESSMENT COMPLETE. PT IS AWAKE AND FOLLOWS WITH EYES. ON VENTILATOR 30%.
--- NOTE | 2017-02-05 10:17 | NUR ---
1009 BLOOD SAMPLE DRAWN FOR VANC TROUGH. PURPLE PORT WILL NOT DRAW, VERY DIFFICULT FLUSH. BLOOD HAD REMAINED IN LINE FROM PREVIOUS LINE DRAW. WAS UNABLE TO USE THAT ACCESS PORT. IV FLUIDS PAUSED AND SAMPLE TAKEN FROM RED ACCESS PORT. LINE WAS FLUSHED WITH 10ML SALINE AND FLUIDS RESTARTED. 1014 VANC INFUSION INITIATED
--- NOTE | 2017-02-05 10:24 | NUR ---
Nutrition follow-up: Pt remains intubated; no sedation at this time Pulmocare infusing @ 60 ml/hr via OGT Labs reviewed Wt: 204# Pt now full code; slowly improving per physician RDN following.
--- NOTE | 2017-02-05 10:39 | NUR ---
DR MCCORMICK BY TO SEE PATIENT. PLANS FOR PEG PLACEMENT TODAY AND TRACH ON SUNDAY. DR MCCORMICK SPOKE WITH FATHER ABOUT PLANS AND RISKS. TUBE FEEDINGS HAVE BEEN STOPPED AND LINE FLUSHED TO REMAIN PATENT.
--- NOTE | 2017-02-05 11:53 | NUR ---
CONSENTS FOR PEG TUBE OBTAINED FROM FATHER, ZENOBIAKacy
--- NOTE | 2017-02-05 12:37 | NUR ---
DR MCCORMICK AT BEDSIDE FOR PEG PLACEMENT.
--- NOTE | 2017-02-05 15:30 | NUR ---
ABDOMINAL BINDER HAS BEEN PLACED. PT HAD LARGE SOLID STOOL. HAS BEEN CLEANED UP AND REPOSITIONED.
--- NOTE | 2017-02-05 19:30 | NUR ---
BLOOD DRAWN FROM RED ACCESS IN PICC LINE FOR BLOOD CULTURES. URINE OBTAINED FOR URINE CULTURE. PT AWAKE. LET HIM KNOW WHAT I WAS DOING. ORAL CARE PROVIDED. SUCTION PROVIDED.
--- NOTE | 2017-02-05 19:40 | NUR ---
REC'D TO CARE, PUBLIC AID ELIGIBILITY ASSISTANT PER FLOWSHEET. [facility], AWAKE, TRACKS WITH EYES AND TRIES TO MOUTH WORDS. WILBER WEAKLY TO COMMAND. L FOOT WEAKEST. ANIKA NOTED TO HEAD INTACT. NO SIGN OF DISTRESS. ROM DONE, EXTR ELEVATED ON PILLOWS. ABD BINDER ON, NEW PEG SITE C/D/I - LIGHT BROWN/YELLOW DRAINAGE NOTED TO GRAVITY BAG. IVFS INFUSING TO R PICC, DSG C/D/I - SEE FLOWSHEET. AIR OVERLAY IN USE. B/L SOFT WRIST RESTRAINTS ON PER MD ORDERS. ALARMS ON AND PT IN SIGHT OF NURSE STATION.
--- NOTE | 2017-02-05 21:15 | NUR ---
FAMILY AT BS, UPDATE GIVEN AND QUESTIONS ANSWERED. VSS. NO SIGN OF DISTRESS.
--- NOTE | 2017-02-05 23:00 | NUR ---
REASSESSMENT PER FLOWSHEET. PT REPOSITIONED UP IN BED TO R SIDE, ROM DONE. ORAL CARE DONE. VSS. NO SIGN OF DISTRESS.
[2017-02-06] VITALS (25 sets, daily range): BP systolic 97–125; BP diastolic 58–78
--- NOTE | 2017-02-06 01:15 | NUR ---
RESTING WITH EYES CLOSED, VSS. NO SIGN OF DISTRESS.
--- NOTE | 2017-02-06 03:20 | NUR ---
PCXR DONE. REASSESSMENT PER FLOWSHEET, NO ACUTE CHANGES. ALL IV TUBINGS AND PRN ADAPTERS CHANGED.
[2017-02-06 05:05] LABS: BASOPHILS 0.2 % (0-2); EOSINOPHILS 0.4 % (0-7); HEMATOCRIT 22.4 % (42.0-54.0); IMMATURE GRANULOCYTES 2.6 % (0-5); LYMPHOCYTES 9.9 % (15-50); MCH 28.2 pg (26.0-34.0); MCHC 29.9 g/dL (31.0-37.0); MCV 94.1 fL (80.0-100.0); MEAN PLATELET VOLUME 9.5 fL (7.4-10.4); MONOCYTES 5.3 % (2-11); NEUTROPHILS 81.6 % (40-80); PLATELET COUNT 460 10x3/uL (130-400); RBC 2.38 10x6/uL (4.20-6.10); RDW 14.9 % (11.5-14.5)
[2017-02-06 05:11] LABS: CALC OSMOLALITY 307 mosm/kg (275-300); CALCIUM 8.2 mg/dL (8.5-10.1); CARBON DIOXIDE 23.9 mmol/L (21.0-32.0); CREATININE - SERUM 1.1 mg/dL (0.6-1.3); GLUCOSE 92 mg/dL (74-106); MAGNESIUM - SERUM 2.2 mg/dL (1.8-2.4); PHOSPHOROUS 3.5 mg/dL (2.5-4.9); POTASSIUM - SERUM 3.5 mmol/L (3.5-5.1); SODIUM 150 mmol/L (136-145); UREA NITROGEN 40 mg/dL (7-18); eGFR NON AFRICAN AMERICAN 79 mL/min (90-120)
[2017-02-06 05:37] LABS: WBC 19.1 10x3/uL (4.8-10.8)
[2017-02-06 05:39] LABS: CHLORIDE - SERUM 116 mmol/L (98-107); HEMOGLOBIN 6.7 g/dL (13.5-17.5)
--- NOTE | 2017-02-06 06:17 | NUR ---
FAMILY AT BS. UPDATE GIVEN AND QUESTIONS ANSWERED.
--- NOTE | 2017-02-06 07:15 | NUR ---
REPORT RECIEVED FROM SPLITTING MACHINE TENDER NURSE. PT RESTING IN BED WITH EYES CLOSED. NOT SEDATED ON VENT. AROUSES TO VOICE AND TACTILE STILMUATION. REFER TO FLOWSHEET FOR VENT SETTINGS. SOFT WRIST RESTRAINTS IN PLACE BILAT. G-TUBE TO GRAVITY WITH GREEN OUTPUT. F/C PATENT WITH ZEE COLORED URINE. FABIANA AREA RED AND EXCORIATED. BUTTOCKS RED, BUT BLANCHABLE. CORN STARCH AND BUDROS BUTT PASTE APPLIED TO AREAS. TURNED AND REPOSITIONED FOR COMFORT. SUCTIONED AND ORAL CARE PROVIDED. FULL ASSESSMENT COMPLETE PER FLOWSHEET. REFER FOR DETAILS. VSS. BED IN LOW POSITION. WILL CONT TO ASSESS FOR CHANGES.
--- NOTE | 2017-02-06 07:40 | NUR ---
PLACED ON CPAP PER RT. WILL MONITOR.
--- NOTE | 2017-02-06 09:00 | NUR ---
FAMILY AT BEDSIDE. UPDATE PROVIDED.
--- NOTE | 2017-02-06 11:00 | NUR ---
REASSESSEMENT COMPELTE. NO CHANGES NOTED AT THIS TIME. TURNED AND REPOSITIONED FOR COMFORT. ORAL CARE PROVIDED. WILL CONT TO ASSESS.
--- NOTE | 2017-02-06 11:00 | NUR ---
TF STARTED PER ORDERS. WILL ASSESS RESIDUAL IN FOUR HOURS.
--- NOTE | 2017-02-06 14:00 | NUR ---
INCONTINET-LARGE FORMED BM. INCONTINET CARE PROVIDED ALOND WITH RUSSO CARE. FULL LINEN CHANGE PROVIDED.
--- NOTE | 2017-02-06 15:00 | NUR ---
FAMILY AT BEDSIDE. UPDATE PROVIDED. NO CHANGES NOTED AT THIS TIME. REASSESSMENT COMPELTE PER FLOWSHEET. WILL CONT TO ASSESS.
--- NOTE | 2017-02-06 17:00 | NUR ---
TURNED AND REPOSITIONED FOR COMFORT. PILLOWS PLACED UNDERNEATH ALL EXT'S.
--- NOTE | 2017-02-06 19:25 | NUR ---
REPORT RECIEVED, SHIFT ASSESSMENT COMPLETE, PT IS ON VENT, FOLLOWS COMMANDS, ON 30% FIO2 WITH 98% O2 SAT. LUNGS CLEAR IN B/L UPPER LOBES, DIMINISHED IN B/L LOWER LOBES, S1S2, CM-NSR, PATENT RIGHT UPPER ARM PICC...SEE IV FLOW SHEET...PATENT G-TUBE WITH PULMOCARE @ 40 ML/HR VIA PUMP, NO RESIDUAL AT THIS TIME, ABDOMEN IS FLAT WITH ACTIVE BS, PATENT F/C WITH ZEE UOP, EDEMA NOTED IN ALL EXTREMETIES, ALL PPP, VSS, WILL CON'T TO MONITOR
--- NOTE | 2017-02-06 21:23 | NUR ---
FAMILY AT BEDSIDE, UPDATE GIVEN
--- NOTE | 2017-02-06 23:25 | NUR ---
REASSESSMENT COMPLETE, NO CHANGES NOTED, PT RESTING AT THIS TIME, REPOSITIONED FOR COMFORT, ORAL CARE PROVIDED,
[2017-02-07] VITALS (24 sets, daily range): BP systolic 102–122; BP diastolic 61–78
--- NOTE | 2017-02-07 01:15 | NUR ---
REPOSITIONED FOR COMFORT, ORAL CARE PROVIDED
--- NOTE | 2017-02-07 03:10 | NUR ---
REASSESSMENT COMPLETE, NO CHANGES NOTED, RAD IN ROOM FOR DAILY CXR, REPOSITIONED FOR COMFORT,
[2017-02-07 03:52] LABS: BASOPHILS 0.3 % (0-2); EOSINOPHILS 1.3 % (0-7); HEMATOCRIT 22.3 % (42.0-54.0); IMMATURE GRANULOCYTES 2.3 % (0-5); LYMPHOCYTES 13.2 % (15-50); MCH 28.9 pg (26.0-34.0); MCHC 30.5 g/dL (31.0-37.0); MCV 94.9 fL (80.0-100.0); MEAN PLATELET VOLUME 9.4 fL (7.4-10.4); MONOCYTES 5.2 % (2-11); NEUTROPHILS 77.7 % (40-80); PLATELET COUNT 447 10x3/uL (130-400); RBC 2.35 10x6/uL (4.20-6.10); RDW 14.8 % (11.5-14.5); WBC 11.1 10x3/uL (4.8-10.8)
[2017-02-07 03:53] LABS: HEMOGLOBIN 6.8 g/dL (13.5-17.5)
[2017-02-07 04:05] LABS: CALC OSMOLALITY 300 mosm/kg (275-300); CALCIUM 8.2 mg/dL (8.5-10.1); CARBON DIOXIDE 22.4 mmol/L (21.0-32.0); GLUCOSE 96 mg/dL (74-106); PHOSPHOROUS 3.4 mg/dL (2.5-4.9); POTASSIUM - SERUM 3.6 mmol/L (3.5-5.1); SODIUM 148 mmol/L (136-145); UREA NITROGEN 31 mg/dL (7-18); eGFR NON AFRICAN AMERICAN 88 mL/min (90-120)
[2017-02-07 04:18] LABS: CHLORIDE - SERUM 117 mmol/L (98-107)
--- NOTE | 2017-02-07 07:00 | NUR ---
PT REPORT REC'D, PT CARE ASSUMED. PT AWAKE, NODS HEADS TO QUESTIONS AND FOLLOWS COMMANDS. RIGHT UPPER ARM PICC WITH FLUIDS INFUSING, SEE FLOW SHEET. RUSSO CATHETER FREE OF KINKS WITH ZEE URINE RETURN TO GRAVITY. SHIFT ASSESSMENT COMPLETED, SEE FLOW SHEET. ROOM FREE OF CLUTTER, CALL LIGHT IN REACH, BED ALARM ACTIVE, WILL CONTINUE TO MONITOR PT.
--- NOTE | 2017-02-07 09:00 | NUR ---
PT FAMILY AT THE BEDSIDE, ALL QUESTIONS ANSWERED,VSS, WILL CONTINUE TO MONITOR PT.
--- NOTE | 2017-02-07 09:58 | NUR ---
NUTRITION MONITORING & EVAL CHART REVIEWED. PT REMAINS ON VENT IN ISOLATION. TOLERATING PULMOCARE @ GOAL RATE 60 CC/HR. RD FOLLOWING
--- NOTE | 2017-02-07 11:00 | NUR ---
REPOSITIONED PT, PROPPED WITH PILLOWS, VSS, REASSESSMENT COMPLETED, SEE FLOW SHEET. ROOM FREE OF CLUTTER, BED LOCKED IN LOWEST POSITION. CALL LIGHT IN REACH, WILL CONTINUE TO MONITOR PT.
--- NOTE | 2017-02-07 12:15 | NUR ---
PT HAD LG, SOFT BOWEL MOVEMENT, COMPLETE BED BATH AND COMPLETE LINEN CHANGE, REPOSITIONED PT, PROPPED WITH PILLOWS, WILL CONTINUE TO MONITOR PT.
--- NOTE | 2017-02-07 12:30 | NUR ---
ULTRA SOUND AT THE BEDSIDE.
--- NOTE | 2017-02-07 12:34 | NUR ---
PT FAMILY AT THE BEDSIDE, ALL QUESTIONS ANSWERED, VSS, WILL CONTINUE TO MONITOR PT.
--- NOTE | 2017-02-07 13:40 | NUR ---
DR. MCCORMICK AT THE BEDSIDE FOR TRACH PLACEMENT.
--- NOTE | 2017-02-07 15:00 | NUR ---
PT RESTING WITH EYES CLOSED, VSS, REASSESSMENT COMPLETED, SEE FLOW SHEET. ROOM FREE OF CLUTTER, BED LOCKED IN LOWEST POSITION, CALL LIGHT IN REACH, WILL CONTINUE TO MONITOR PT.
--- NOTE | 2017-02-07 15:05 | NUR ---
PT FAMILY AT THE BEDSIDE, ALL QUESTIONS ANSWERED, VSS, WILL CONTINUE TO MONITOR PT.
--- NOTE | 2017-02-07 15:24 | NUR ---
02/07/2017 15:20 DCP: Discharge Planning Patient remains on vent - actively weaning. Trach placed today. Once patient is off the ventilator, we can begin dc planning - options will include senior living & home with family & home health. If patient doesn't wean from vent, patient will have to go home with home health on a portable vent, or to a senior care care facility that accepts vents, which will likely be out of state. CM will follow & assist.
--- NOTE | 2017-02-07 18:00 | NUR ---
PT FAMILY AT THE BEDSIDE, ALL QUESTIONS ANSWERED, VSS, WILL CONTINUE TO MONITOR PT.
--- NOTE | 2017-02-07 19:10 | NUR ---
Received patient resting in bed with eyes closed, assessment completed per flowsheet. Patient AO x2, disoriented to time/situation. Difficult to ascertain LOC due to Trach, patient nods appropriately to questions and follows commands. Eyes PERRLA @ 4mm with brisk response, sclera is slightly reddened with patient wearing glasses. Trach 8.0 secured, slightly bloody dressing noted from placement 02/07. S1/S2 noted NSR on telemetry with HR 95, rhythmic and regular. Vent settings SIMV R-14 V-600 30% P-5 PS-10, Lung sounds clear bilateral upper with crackles noted mid and diminished lower. Abdomen is flat and soft with bowel sounds active x4, non-tender to palpation. Che secured with statlock, rip urine noted in collection. Weakness noted all extremities with all pulses palpable, cap refill < 3 sec. Unable to assess pain at this time, no further needs. All VSS and will continue to monitor.
--- NOTE | 2017-02-07 21:30 | NUR ---
Patient family at bedside, all questions answered to satisfaction. Patient incontinent of bowel in bed, cleaned and linen changed with assistance from Mary COFFEY and Marie JENKINS present. No further needs at this time, all VSS and will continue to monitor.
--- NOTE | 2017-02-07 23:00 | NUR ---
Reassessment completed per flowsheet, patient resting in bed with eyes closed. Patient responds appropriately to questions mouthing words and nodding head. S1/S2 noted NSR on telemetry with HR 95, rhythmic and regular. Vent settings unchanged from previous assessment, O2 sat 97%. Trach secured with slightly bloody dressing from placement 02/07. Patient denies pain or other needs at this time, all VSS and will continue to monitor.
[2017-02-08] VITALS (24 sets, daily range): BP systolic 102–135; BP diastolic 60–89
--- NOTE | 2017-02-08 01:00 | NUR ---
Patient given bed bath with Marie RT present, tolerated well. No further needs at this time, all VSS and will continue to monitor.
--- NOTE | 2017-02-08 03:00 | NUR ---
Reassessment completed per flowsheet, patient resting in bed with eyes open. Patient responds to commands appropriately and opens eyes spontaneously. S1/S2 noted NSR on telemetry with HR 97, rhythmic and regular. Vent settings unchanged from previous assessment with O2 sat 97%. Trach 8.[address], old blood from insertion on dressing. Peg site dressing CDI, Pulmocare @ 65ml/hr. All pulses palpable with cap refill < 3 sec. Patient denies pain or other needs at this time, all VSS and will continue to monitor.
--- NOTE | 2017-02-08 05:00 | NUR ---
AM Labs collected, patient resting in bed with eyes closed. Patient denies pain or other needs at this time, all VSS and will continue to monitor.
[2017-02-08 05:08] LABS: BASOPHILS 0.2 % (0-2); EOSINOPHILS 1.3 % (0-7); HEMATOCRIT 22.4 % (42.0-54.0); IMMATURE GRANULOCYTES 2.1 % (0-5); LYMPHOCYTES 13.8 % (15-50); MCH 28.8 pg (26.0-34.0); MCHC 30.4 g/dL (31.0-37.0); MCV 94.9 fL (80.0-100.0); MEAN PLATELET VOLUME 9.3 fL (7.4-10.4); MONOCYTES 5.3 % (2-11); NEUTROPHILS 77.3 % (40-80); PLATELET COUNT 465 10x3/uL (130-400); RBC 2.36 10x6/uL (4.20-6.10); RDW 14.7 % (11.5-14.5); WBC 9.2 10x3/uL (4.8-10.8)
[2017-02-08 05:11] LABS: HEMOGLOBIN 6.8 g/dL (13.5-17.5)
[2017-02-08 05:41] LABS: CALC OSMOLALITY 293 mosm/kg (275-300); CALCIUM 7.8 mg/dL (8.5-10.1); CARBON DIOXIDE 23.8 mmol/L (21.0-32.0); CHLORIDE - SERUM 114 mmol/L (98-107); CREATININE - SERUM 0.9 mg/dL (0.6-1.3); GLUCOSE 98 mg/dL (74-106); POTASSIUM - SERUM 3.6 mmol/L (3.5-5.1); SODIUM 146 mmol/L (136-145); VANCOMYCIN - TROUGH 28.1 ug/mL (10.0-20.0); eGFR NON AFRICAN AMERICAN > 90 mL/min (90-120)
[2017-02-08 05:45] LABS: UREA NITROGEN 22 mg/dL (7-18)
--- NOTE | 2017-02-08 07:00 | NUR ---
PT REPORT REC'D, PT CARE ASSUMED. PT ON VENT, OPENS EYES SPONTANEOUSLY, FOLLOWS COMMANDS. 8.0 TRACH SECURED, GAUZE INTACT, VSS, 30% O2. RIGHT UPPER ARM PICC, WITH FLUIDS INFUSING, SEE FLOW SHEET, DRESSING CDI. RUSSO CATHETER FREE OF KINKS WITH ZEE URINE RETURN TO GRAVITY, REPOSITOINED PT, PROPPED WITH PILLOWS. ASSESSMENT COMPLETED, SEE FLOW SHEET. ROOM FREE OF CLUTTER, BED LOCKED IN LOWEST POSITION, CALL LIGHT IN REACH, BED ALARM ACTIVE, WILL CONTINUE TO MONITOR PT.
--- NOTE | 2017-02-08 07:58 | NUR ---
DR. NAIR AT THE BEDSIDE, SPEAKING WITH FAMILY, ALL QUESTIONS ANSWERED, VSS, WILL CONTINUE TO MONITOR PT.
--- NOTE | 2017-02-08 09:16 | NUR ---
02/08/2017 9:03 DCP: Discharge Planning Order rec'd for LTAC evaluation - patient has Medicaid, therefor not a candidate for LTAC. Will look into finding him a lexi bed. CM will follow.
--- NOTE | 2017-02-08 11:00 | NUR ---
PT ON VENT, FOLLOWS COMMANDS, VSS, REASSESSMENT COMPLETED, SEE FLOW SHEET. ROOM FREE OF CLUTTER, CALL LIGHT IN REACH, WILL CONTINUE TO MONITOR PT.
--- NOTE | 2017-02-08 15:00 | NUR ---
PT ON VENT, OPENS EYES TO VOICE, FOLLOWS COMMANDS, REASSESSMENT COMPLETED, SEE FLOW SHEET. PT FAMILY AT THE BEDSIDE, ALL QUESTIONS ANSWERED, VSS, WILL CONTINUE TO MONITOR PT.
--- NOTE | 2017-02-08 17:00 | NUR ---
PT HAD SOFT,BROWN STOOL, SARA WILSON RT AT THE BEDSIDE,COMPLETE BED BATH AND LINEN CHANGE. PT TOLERATED WELL. VSS, WILL CONTINUE TO MONITOR PT.
--- NOTE | 2017-02-08 18:00 | NUR ---
PT FAMILY AT THE BEDSIDE, ALL QUESITONS ANSWERED, VSS, WILL CONTINUE TO MONITOR PT.
--- NOTE | 2017-02-08 21:04 | NUR ---
FAMILY AT BEDSIDE PW SWITCHED PER REQUEST. FAMILY HAS HAD PROBLEMS WITH VISITORS AT THIS TIME. VISITORS TO CHECK AT NURSING STATION BEFORE ENTERING.
--- NOTE | 2017-02-08 23:22 | NUR ---
REASSESSMENT COMPLETE PER FLOW SHEET. VSS NO NEW CHANGES. WILL CONTINUE TO MONITOR
[2017-02-09] VITALS (24 sets, daily range): BP systolic 97–127; BP diastolic 57–105
--- NOTE | 2017-02-09 03:23 | NUR ---
REASSESSMENT COMPLETE PER FLOW SHEET. VSS.NO NEW CHANGES WILL CONTINUE TO MONITOR
[2017-02-09 04:40] LABS: BASOPHILS 0.2 % (0-2); EOSINOPHILS 2.5 % (0-7); HEMATOCRIT 22.2 % (42.0-54.0); IMMATURE GRANULOCYTES 1.9 % (0-5); LYMPHOCYTES 18.5 % (15-50); MCH 28.6 pg (26.0-34.0); MCHC 30.6 g/dL (31.0-37.0); MCV 93.3 fL (80.0-100.0); MEAN PLATELET VOLUME 8.7 fL (7.4-10.4); MONOCYTES 6.1 % (2-11); NEUTROPHILS 70.8 % (40-80); PLATELET COUNT 424 10x3/uL (130-400); RBC 2.38 10x6/uL (4.20-6.10); WBC 8.5 10x3/uL (4.8-10.8)
[2017-02-09 04:44] LABS: HEMOGLOBIN 6.8 g/dL (13.5-17.5)
[2017-02-09 05:08] LABS: ALKALINE PHOSPHATASE 77 U/L (46-116); ALT (SGPT) 82 U/L (10-68); BILIRUBIN - TOTAL 0.47 mg/dL (0.2-1.3); CALC OSMOLALITY 282 mosm/kg (275-300); CARBON DIOXIDE 25.7 mmol/L (21.0-32.0); CHLORIDE - SERUM 109 mmol/L (98-107); CREATININE - SERUM 0.7 mg/dL (0.6-1.3); GLUCOSE 103 mg/dL (74-106); POTASSIUM - SERUM 3.8 mmol/L (3.5-5.1); PROTEIN - SERUM 6.6 g/dL (6.4-8.2); SODIUM 141 mmol/L (136-145); UREA NITROGEN 18 mg/dL (7-18); eGFR NON AFRICAN AMERICAN > 90 mL/min (90-120)
--- NOTE | 2017-02-09 08:18 | NUR ---
LYING IN BED RESTING WITH EYES CLOSED. RESPIRATIONS STEADY AND UNLABORED. VENT SETTINGS AT CPAP THROUGH TRACH. PT TOLERATING WELL. PT ABLE TO OPEN EYES AND SQUEEZE HANDS UPON COMMAND. NO ACUTE DISTRESS NOTED. WILL CONTINUE PLAN OF CARE.
--- NOTE | 2017-02-09 10:11 | NUR ---
RESTING IN BED AT THIS TIME, RESPIRATIONS STEADY AND UNLABORED. AWAKNENS EASILY WHEN SPOKE TO. NO ACUTE DISTRESS NOTED WILL CONTINUE PLAN OF CARE.
--- NOTE | 2017-02-09 13:10 | NUR ---
PT IN ROOM WORKING RAGE OF MOTION WITH PT AT THIS TIME. NO ACUTE DISTRESS NOTED. WILL CONTINUE PLAN OF CARE.
--- NOTE | 2017-02-09 13:45 | NUR ---
Nutrition Follow Up: Pt with trach. Pt tolerating TF of Pulmocare @ 65 ml/hr (goal rate). I>O. +BM 02/08/17. Wt gain since admit noted. Labs reviewed. Meds noted. Rec continue current TF regimen. RD will continue to monitor pt progress.
--- NOTE | 2017-02-09 15:51 | NUR ---
BED BATH PROVIDED. PT ABLE TO HELP TURNING VIA MOD ASSIST. IS STILL ON FRESH TRACH PROTOCOL. NO ACUTE DISTRESS NOTED. RESIDUAL TO PEG NOTED AT 60ML. WILL CONTINUE PLAN OF CARE.
--- NOTE | 2017-02-09 16:41 | NUR ---
RESTING IN BED AT THIS TIME. NO ACUTE DISTRESS NOTED. RESPIRATIONS STEADY AND UNLABORED RATE. AWAKENS EASILY WHEN SPOKEN TO. FOLLOWS COMMANDS AND IS ABLE TO STATE NEEDS VIA MOUTHING WORDS AND NODDING/SHAKING HEAD FOR YES AND NO WELL HAND SIGNALINS "OKAY" AND THUMBS UP. WILL CONTINUE PLAN OF CARE.
--- NOTE | 2017-02-09 18:49 | NUR ---
NOTED PTS HELPER MARBLE FINISHER HAD SENT A FAX REGARDING NEEDING PROOF THAT PT HAS BEEN A PATIENT SINCE 01/09 AND NEEDING A STATEMENT ON HOW LONG PT WAS TO STAY AT HOSPITAL. PER PTS FAMILY REQUEST, FORM WAS MADE WHICH STATED PT HAS BEEN HERE FROM 01/09 UNTIL CURRENT AND PTS FATHER HAS BEEN TO SEE PT. PTS FATHER STATED HE DID NOT NEED HOSPITAL TO PERFORM ANY FURTHER ACTIONS, AND THAT HE WOULD TALK TO THE HELPER MARBLE FINISHER FROM THERE TO ANSWER ALL FURTHER QUESTIONS. NO ACUTE DISTRESS NOTED. WILL CONTINUE PLAN OF CARE.
--- NOTE | 2017-02-09 19:00 | NUR ---
REPORT RECIEVED, INITIAL ASSESSMENT COMPLETE, PLEASE SEE FLOW SHEETS FOR DETAILS. PT AWAKE AND ALERT, DENIES PAIN/NEEDS ATT. PROVIDED ORAL CARE AND TURNING. LUNG SOUNDS WITH CRACKLES THROUGHOUT. BS ACTIVE X4, PEG TUBE WITH FEEDING @ 65. PPP. VSS ATT, BED LOW AND LOCKED, CALL LIGHT IN REACH. WILL CPOC.
--- NOTE | 2017-02-09 20:00 | NUR ---
RESIDUAL 85ML PER PEG TUBE, THIS WAS RETURNED.
--- NOTE | 2017-02-09 20:45 | NUR ---
BM CLEANED UP ATT. INCONTINENCE OF STOOL, DIARRHEA NOTED. TURNING AND ORAL CARE PROVIDED. ATT, BLOOD CLOT SUCTIONING FROM ORAL CAVITY. FAMILY CAME INTO ROOM, ANSWERED QUESTIONS, ATTENDED TO PT NEEDS. BED LOW AND LOCKED, RESTRAINTS CHECKED AND SECURED WITH QUICK RELEASE KNOTS. VSS. WILL CPOC.
--- NOTE | 2017-02-09 23:00 | NUR ---
REASSESSMENT COMPLETE, PLEASE SEE FLOW SHEETS FOR DETAILS. ORAL CARE AND TURNING PROVIDED. BED LOW AND LOCKED, CALL LIGHT IN REACH. VSS, WILL CPOC.
[2017-02-10] VITALS (24 sets, daily range): BP systolic 103–131; BP diastolic 61–83
--- NOTE | 2017-02-10 | NUR ---
RESIDUAL FROM PEG 79ML, THIS WAS RETURNED.
--- NOTE | 2017-02-10 00:42 | NUR ---
NEW TUBE FEEDING BAGS/LINES HUNG, BAG MARKED WITH APPROPRIATE INFO. PT RESTING. NO S&S OF ACUTE DISTRESS NOTED. VSS, BED LOW AND LOCKED, CALL LIGHT IN REACH. RESTRAINTS CHECKED AND SECURED WITH QUICK RELEASE KNOTS. WILL CPOC.
--- NOTE | 2017-02-10 02:33 | NUR ---
C/O NAUSEA AND STOMACH PAIN, GAVE ZFRAN PER ORDERS AND CHECKED RESIDUAL AGAIN AND WAS AT 100, THIS WAS RETURNED. WILL CPOC AND MONITOR. CALL LIGHT IN REACH. BED LOW AND LOCKED.
--- NOTE | 2017-02-10 03:01 | NUR ---
REASSESSMENT COMPLETE, PLEASE SEE FLOW SHEETS FOR DETAILS. ORAL CARE AND TURNING PROVIDED. BED LOW AND LOCKED, CALL LIGHT IN REACH. VSS, WILL CPOC.
--- NOTE | 2017-02-10 04:00 | NUR ---
RESIDUAL CHECKED AND 100ML RETURNED VIA PEG TUBE.
[2017-02-10 04:22] LABS: BASOPHILS 0.1 % (0-2); HEMATOCRIT 22.8 % (42.0-54.0); IMMATURE GRANULOCYTES 1.5 % (0-5); LYMPHOCYTES 15.7 % (15-50); MCH 28.7 pg (26.0-34.0); MCHC 31.6 g/dL (31.0-37.0); MONOCYTES 4.9 % (2-11); NEUTROPHILS 75.8 % (40-80); PLATELET COUNT 431 10x3/uL (130-400); RBC 2.51 10x6/uL (4.20-6.10); WBC 9.3 10x3/uL (4.8-10.8)
[2017-02-10 04:27] LABS: HEMOGLOBIN 7.2 g/dL (13.5-17.5); MCV 90.8 fL (80.0-100.0)
[2017-02-10 04:40] LABS: ALBUMIN 2.1 g/dL (3.4-5.0); ALT (SGPT) 86 U/L (10-68); CALC OSMOLALITY 272 mosm/kg (275-300); CARBON DIOXIDE 26.3 mmol/L (21.0-32.0); CHLORIDE - SERUM 104 mmol/L (98-107); CREATININE - SERUM 0.8 mg/dL (0.6-1.3); GLUCOSE 102 mg/dL (74-106); MAGNESIUM - SERUM 1.6 mg/dL (1.8-2.4); PHOSPHOROUS 3.2 mg/dL (2.5-4.9); PROTEIN - SERUM 6.8 g/dL (6.4-8.2); SODIUM 136 mmol/L (136-145); UREA NITROGEN 14 mg/dL (7-18); eGFR NON AFRICAN AMERICAN > 90 mL/min (90-120)
[2017-02-10 04:51] LABS: ALKALINE PHOSPHATASE 76 U/L (46-116)
--- NOTE | 2017-02-10 05:00 | NUR ---
REQUESTED A SHAVE, WAS ABLE TO PROVIDE CLIPPERS AND CLIPPED RIVERA AND MUSTACHE. PT VERY SATIFIED, C/O PAIN IN LOWER ABD. WILL ADDRESS WITH AM NURSE. VSS ATT, BED LOW AND LOCKED. ORAL CARE AND TURNING PROVIDED. CALL LIGHT IN REACH. WILL CPOC.
--- NOTE | 2017-02-10 06:00 | NUR ---
FAMILY AT BEDSIDE, GAVE UPDATE. NO NEEDS ATT.
--- NOTE | 2017-02-10 07:29 | NUR ---
UP IN BED AWAKE AT THIS TIME. NO ACUTE DISTRESS NOTED. PT ABLE TO MOUTH NEEDS AND USE HAND GUESTERING TO HELP WITH COMMUNICATION. PT DENIES ANY NEEDS AT THIS TIME. WILL CONTINUE PLAN OF CARE.
--- NOTE | 2017-02-10 09:08 | NUR ---
PT AWAKE IN BED AT THIS TIME, FAMILY AT BEDSIDE. NO ACUTE DISTRESS NOTED. WILL CONTINUE PLAN OF CARE.
--- NOTE | 2017-02-10 11:27 | NUR ---
AWAKE IN BED AT THIS TIME. PT ABLE TO MOUTH ANY NEEDS AND USE HAND SIGNALING TO GUESTER CONVERSATIONS. PT ALSO USES CALL LIGHT. NO ACUTE DISTRESS NOTED. WILL CONTINUE PLAN OF CARE.
--- NOTE | 2017-02-10 13:27 | NUR ---
UP IN BED RESTING AT THIS TIME. RESPIRATIONS STEADY AND UNLABORED. NO ACUTE DISTRESS NOTED. PT AWAKNS EASILY WHEN SPOKEN TO. WILL CONTINUE PLAN OF CARE.
--- NOTE | 2017-02-10 16:00 | NUR ---
RESTING IN BED AT THIS TIME, RESPIRATIONS AT STEADY AND UNLABORED RATE. AWAKENS EASILY WHEN SPOKE TO. NO ACUTE DISTRESS NOTED. WILL CONTINUE PLAN OF CARE.
--- NOTE | 2017-02-10 18:07 | NUR ---
FAMILY AT BEDSIDE VISITING WITH PT. NO ACUTE DISTRESS NOTED. WILL CONTINUE PLAN OF CARE.
--- NOTE | 2017-02-10 19:10 | NUR ---
REPORT RECIEVED, INITIAL ASSESSMENT COMPLETE, PLEASE SEE FLOW SHEETS FOR DETAILS. ORAL CARE AND TURNING PROVIDED. PROVIDED FACIAL GROOMING (HOT TOWEL WIPE PER REQUEST). C/O PAIN IN LOWER ABD 05/15. BS ACTIVE X4. DENIES PASSING GAS AND HAS NOT HAD A BM TODAY. ENCOURAGED HIM TO TRY TO PASS GAS OR HAVE A BM AND THAT MAY RELEAVE THE PAIN. IF HE DOES NOT OR IF HE DOES AND PAIN IS NOT RELIEVED, WILL CONTACT MD. CRACKLES IN ALL LUNG LOBES. COUGH PRESENT AND PRODICTIVE WITH THICK WHITE SPUTUM, THIS WAS SUCTIONED VIA INLINE VIA TRACH. DENIES ANY OTHER PAIN/NEEDS ATT. VSS, BED LOW AND LOCKED, CALL LIGHT IN REACH. WILL CPOC.
--- NOTE | 2017-02-10 21:39 | NUR ---
PT RESTING, NO S&S OF DISTRESS NOTED. VSS, BED LOW AND LOCKED, CALL LIGHT IN REACH. TURNING PROVIDED. WILL CPOC.
--- NOTE | 2017-02-10 23:00 | NUR ---
Reassessment complete, please see flow sheets for details. Che care provided att. Oral care and turning provided. Denies any pain/needs att. No BM. Denies passing gas. Will rest comfortable often. Vss, bed low and locked, call light in reach. Will CPOC.
[2017-02-11] VITALS (23 sets, daily range): BP systolic 104–139; BP diastolic 66–98
--- NOTE | 2017-02-11 02:40 | NUR ---
REASSESSMENT COMPLETE, PLEASE SEE FLOW SHEETS FOR DETAILS. ORAL CARE AND TURNING PROVIDED. OFFERED BATH AND REFUSED, INDICATED HE DOES NOT WANT ONE FOR 2 MORE DAYS. TUBE FEED BAG CHANGED OUT. RESIDUAL CHECK AT 140 ML, THIS WAS RETURNED. DENIES ANY PAIN/NEEDS ATT. BED LOW AND LOCKED, CALL LIGHT IN REACH. VSS, WILL CPOC.
--- NOTE | 2017-02-11 03:03 | NUR ---
RESTRAINTS UNTIED ATT, INFORMED PT OF SEVERAL TUBES AND LINES THAT HE SHOULD NOT PULL OUT IT WOULD DO GREAT DAMAGE. ASKED PT TO PROMIS NOT TO PULL AT ANYTHING AND HE INDICATED THAT HE WOULD NOT. ALSO PROVIDED A SUCTIONING SYSTEM FOR HIM SO HE COULD SUCTION HIS MOUTH OUT ON HIS OWN, HE REQUESTED THIS AND WAS DETERMINED AFTER SOME INTERPRETATIONS. PT DID HIS OWN ORAL CARE, AND TURNING WAS PROVIDED. DENIES PAIN ATT. VSS, BED LOW AND LOCKED, CALL LIGHT IN REACH. WILL CPOC.
[2017-02-11 04:16] LABS: BASOPHILS 0.1 % (0-2); EOSINOPHILS 1.8 % (0-7); HEMATOCRIT 23.7 % (42.0-54.0); IMMATURE GRANULOCYTES 1.5 % (0-5); LYMPHOCYTES 17.8 % (15-50); MCH 28.4 pg (26.0-34.0); MCHC 31.6 g/dL (31.0-37.0); MCV 89.8 fL (80.0-100.0); MEAN PLATELET VOLUME 9.2 fL (7.4-10.4); NEUTROPHILS 72.8 % (40-80); PLATELET COUNT 414 10x3/uL (130-400); RBC 2.64 10x6/uL (4.20-6.10); RDW 15.1 % (11.5-14.5); WBC 7.4 10x3/uL (4.8-10.8)
[2017-02-11 04:20] LABS: HEMOGLOBIN 7.5 g/dL (13.5-17.5)
[2017-02-11 04:28] LABS: CALC OSMOLALITY 256 mosm/kg (275-300); CALCIUM 8.2 mg/dL (8.5-10.1); CARBON DIOXIDE 28.2 mmol/L (21.0-32.0); CHLORIDE - SERUM 96 mmol/L (98-107); CREATININE - SERUM 0.7 mg/dL (0.6-1.3); GLUCOSE 97 mg/dL (74-106); MAGNESIUM - SERUM 1.8 mg/dL (1.8-2.4); PHOSPHOROUS 3.1 mg/dL (2.5-4.9); SODIUM 128 mmol/L (136-145); UREA NITROGEN 13 mg/dL (7-18); eGFR NON AFRICAN AMERICAN > 90 mL/min (90-120)
--- NOTE | 2017-02-11 04:30 | NUR ---
PT PULLING AT LINES AND AT TRACH, RESTRAINTS WERE PUT BACK ON FOR PATIENT SAFETY, WILL OBTAIN ORDER.
--- NOTE | 2017-02-11 04:52 | NUR ---
PT RESTING, NO S&S OF ACUTE DISTRESS NOTED. BED LOW AND LOCKED, CALL LIGHT IN REACH. VSS, WILL CPOC.
--- NOTE | 2017-02-11 11:56 | NUR ---
PLACED PATIENT ON A 30% TRACH COLLAR PER DR. CARTAGENA AT 1150.
--- NOTE | 2017-02-11 13:37 | NUR ---
UP IN BED AWAKE AT THIS TIME, NO ACUTE DISTRESS NOTED. PT TURNED Q2H. WILL CONTINUE PLAN OF CARE.
--- NOTE | 2017-02-11 16:16 | NUR ---
NO ACUTE DISTRESS NOTED AT THIS TIME. VENT SETTINGS AT SIMV. PT ABLE TO STATE NEEDS AND FOLLOW SIMPLE COMMANDS. PT STILL ATTEMPTS TO PULL AT TRACH WHEN ARMS ARE FREE THEREFORE SOFT WRIST RESTRAINTS STILL IN PLACE FOR PT SAFETY. WILL CONTINUE PLAN OF CARE.
--- NOTE | 2017-02-11 17:32 | NUR ---
RESTING IN BED AT THIS TIME. RESPIRATIONS AT STEADY AND UNLABORED RATE. NO ACUTE DISTRESS NOTED. AWAKENS EASILY WHEN SPOKEN TO. ABLE TO NOTIFY STAFF OF NEEDS. WILL CONTINUE PLAN OF CARE.
--- NOTE | 2017-02-11 19:15 | NUR ---
SHIFT ASSESSMENT COMPLETE. PT AWAKE AND CAN FOLLOW COMMANDS EASILY. PUPILS 4MM, BRISK REACTION TO LIGHT. ANIKA ON R SIDE OF FOREHEAD INTACT. MISSING TEETH, ORAL CARE PROVIDED. TONGUE MIDLINE. SIZE 8 TRACH. VENT SETTINGS: SIMV, 14 BREATHS/MIN, TIDAL VOLUME 600, FI02 30%, PEEP 5.0, PRESSURE SUPPORT 10. O2 SATURATION IS 97%. S1S2 AUDIBLE. HR 87 NORMAL SINUS VIA TELEMETRY. CRACKLES BILATERALLY THROUGHOUT ALL LOBES. PRODUCTIVE COUGH, RODRIGUEZ, GREEN, THICK SECRETIONS, SUCTIONED. PT TOLERATED WELL. FLAT ABDOMEN, BOWEL SOUNDS ACTIVE IN ALL LOBES. G TUBE IN PLACE, CDI. PULMOCARE TUBE FEEDING AT 65 ML/HR WITH NO FLUSH. CHANGED TUBE FEEDING BAG AND LABELED IT. R UPPER ARM PICC PATENT, DRESSING CDI. NS @ 40 ML/HR. RADIAL AND PEDAL PULSES PALP, +2, REGULAR. RED AREA ON SCROTUM AND BUTTOCKS. S/S OF HEALING. CAP REFILL <3 SEC. RESTRAINTS AND SCD'S REMOVED AND SKIN ASSESSED, WNL. REPOSITIONED FOR COMFORT. CALL LIGHT IN REACH. WILL CONTINUE TO MONITOR.
--- NOTE | 2017-02-11 21:30 | NUR ---
MOTHER, FATHER, AND SON AT PT BEDSIDE. UPDATED FAMILY ON THE STATUS OF THE PT. PROVIDED ORAL CARE AND REPSOITIONED FOR COMFORT. PT AWAKE AND ALERT, INTERACTING WITH FAMILY WELL. CALL LIGHT IN REACH. PT REQUESTED TO SIT IN HIGH ALBERTS'S POSITION. BED IN LOWEST POSITION. WILL CONTINUE TO MONITOR.
--- NOTE | 2017-02-11 23:00 | NUR ---
APPLIED NEW STAT LOCK TO THE R LEG. CHECKED RESIDUAL, 5 ML WITHDRAWN AND PUSHED BACK. REASSESSMENT COMPLETE. PT MOOD IS AGITATED AND HE IS PULLING AT HIS RUSSO. RESTRAINTS IN PLACE. NO FURTHER CHANGES.
[2017-02-12] VITALS (24 sets, daily range): BP systolic 106–131; BP diastolic 70–89
--- NOTE | 2017-02-12 01:00 | NUR ---
PT STATES THAT HE HAS A LOT OF GAS IN HIS STOMACH. PULLED OUT RESIDUAL AND THEN "BURPED" THE G-TUBE. PT STATES THAT HE FEELS BETTER AND DRIFTED OFF TO SLEEP. CALL LIGHT IN REACH. WILL CONTINUE TO MONITOR.
--- NOTE | 2017-02-12 03:30 | NUR ---
REASSESSMENT COMPLETE. PT MOOD IS AGITATED. HE IS WADDING UP HIS GOWN AND SHEETS AND THROWING THEM DOWN TO THE EDGE OF THE BED. PT ASKED IF HE COULD WRITE DOWN WHAT HE WAS TRYING TO TELL ME, BUT IT WAS ILLEGIBLE. HE PROCEEDED TO GO FOR HIS TRACH AND DETATCHED IT FOR A BRIEF MOMENT. RESTRAINTS ARE ON. CALL LIGHT IS IN REACH. WILL CONTINUE TO MONITOR.
[2017-02-12 05:12] LABS: BASOPHILS 0.2 % (0-2); EOSINOPHILS 2.7 % (0-7); HEMOGLOBIN 7.8 g/dL (13.5-17.5); IMMATURE GRANULOCYTES 2.1 % (0-5); LYMPHOCYTES 19.3 % (15-50); MCH 28.9 pg (26.0-34.0); MCHC 32.5 g/dL (31.0-37.0); MCV 88.9 fL (80.0-100.0); MEAN PLATELET VOLUME 9.1 fL (7.4-10.4); MONOCYTES 10.6 % (2-11); NEUTROPHILS 65.1 % (40-80); PLATELET COUNT 417 10x3/uL (130-400); RDW 15.2 % (11.5-14.5); WBC 5.7 10x3/uL (4.8-10.8)
[2017-02-12 05:34] LABS: ALBUMIN 2.4 g/dL (3.4-5.0); ALKALINE PHOSPHATASE 78 U/L (46-116); ALT (SGPT) 85 U/L (10-68); CALC OSMOLALITY 257 mosm/kg (275-300); CALCIUM 8.3 mg/dL (8.5-10.1); CARBON DIOXIDE 29.3 mmol/L (21.0-32.0); CHLORIDE - SERUM 94 mmol/L (98-107); CREATININE - SERUM 0.6 mg/dL (0.6-1.3); GLUCOSE 104 mg/dL (74-106); MAGNESIUM - SERUM 1.8 mg/dL (1.8-2.4); PHOSPHOROUS 3.1 mg/dL (2.5-4.9); POTASSIUM - SERUM 4.3 mmol/L (3.5-5.1); PROTEIN - SERUM 7.2 g/dL (6.4-8.2); SODIUM 128 mmol/L (136-145); UREA NITROGEN 14 mg/dL (7-18); eGFR NON AFRICAN AMERICAN > 90 mL/min (90-120)
--- NOTE | 2017-02-12 05:36 | NUR ---
PT SLEEPING. VSS. PT'S MOTHER CALLED AND I INFORMED HER OF HIS STATUS. SHE STATES THAT SHE WILL BE UP HERE AT 0600. CALL LIGHT IN REACH. RESTRAINTS IN PLACE. WILL CONTINUE TO MONITOR.
--- NOTE | 2017-02-12 07:00 | NUR ---
SHIFT ASSESSMENT COMPLETED, ALERT, ATTEMPTS TO VERBALIZE BUT HAS DIFFICULTY DUE TO TRACH, CONTINUES ON VENT, NO SIGNS OF PAIN, ANIKA TO RIGHT FOREHEAD CLEAN DRY AND INTACT, PEG IN PLACE PER ASPIRATION AND AUSCULTATION, REPOSITIONED, NO NEEDS NOTED CALL LIGHT WITHIN REACH VSS WILL CONTIUE TO MONITOR
--- NOTE | 2017-02-12 09:00 | NUR ---
PT REPOSITIONED, NOTED TO BE PULLING OFF O2 AND PULLING AT CATHETER, DISCUSSED IMPORTANCE OF O2 AND CATHETER, PT NODS HEAD IN UNDERSTANDING, REPOSITIONED, DENIES ALL NEEDS WILL CONTIUE TO MONITOR
--- NOTE | 2017-02-12 09:34 | NUR ---
NUTRITION MONITORING & EVAL CHART REVIEWED, TOLERATING TUBE FEEDS PULMOCARE @ GOAL RATE 65 CC/HR. RD FOLLOWING
--- NOTE | 2017-02-12 11:00 | NUR ---
PT ALERT, CONTINUES ON VENT VIA TRACH, ABLE TO COUGH SECRETIONS, DENIES PAIN AND ALL NEEDS, VSS, WILL CONTINUE TO MONITOR
--- NOTE | 2017-02-12 12:58 | NUR ---
PT ALERT, DENIES PAIN AND ALL NEEDS, NOTED TO ATTEMPT TO PULL LEADS AND TUBING BUT NODS IN UNDERSTANDING WHEN IMPORTANCE OF THEM ARE EXPLAINED, VSS, WILL CONTIUE TO MONITOR
--- NOTE | 2017-02-12 15:00 | NUR ---
PT ALERT, FAMILY AT BEDSIDE FOR VISITATION, RESPRIATIONS EVEN AND UNLABORED, DENIES PAIN AND ALL NEEDS, REPOSITIONED, VSS, WILL CONTINUE TO MONITOR
--- NOTE | 2017-02-12 16:58 | NUR ---
PT REPOSITIONED, FULL LINEN CHANGE AND BED BATH, DENIES PAIN AND ALL NEEDS, WILL CONTIUE TO MONITOR
--- NOTE | 2017-02-12 19:30 | NUR ---
SHIFT ASSESSMENT COMPLETE. PT SITTING UP IN BED SLEEPING. WOKE HIM AND HE APPEARS TO BE VERY CALM AND COOPEPRATIVE AT THIS TIME. ANIKA INTACT ON R FOREHEAD. PUPILS 4 MM, BRISK REACTION TO LIGHT. TONGUE MIDLINE. PT HAS SOME REAL TEETH. TRACH HAS A FEW CLOTS IN THE TUBING. RESPIRATORY IS AWARE. VENT SETTINGS: SIMV, RATE 14, TIDAL VOLUME 600, PRESSURE SUPPORT 10, PEEP 5, FI02 30%. S1S2 AUDIBLE. NORMAL SINUS RHYTHM VIA TELEMETRY. RESP RATE IS REGULAR WITH CRACKLES HEARD BILAT THROUGHOUT ALL LOBES. BOWEL SOUNDS ACTIVE IN ALL QUADS. G TUBE DRESSING CDI, YELLOW DRAINAGE. 4 ML RESIDUAL. FAIR AMOUNT OF GAS RELEASED FROM STOMACH. RUSSO CATH IN DRAINING CONCENTRATED URINE. SCDS AND RESTRAINTS REMOVED FOR SKIN INSPECTION, WNL. RADIAL AND PEDAL PULSES PALP. TUBE FEEDING, PULMOCARE 65 ML/HR NO FLUSH. R UPPER ARM PICC, DRESSING CDI. NS @ 40. BED IN LOWEST POSITON. CALL LIGHT IN REACH. TV ON. WILL CONTINUE TO MONITOR.
--- NOTE | 2017-02-12 21:30 | NUR ---
MOTHER AND FATHER AT THE BEDSIDE. UPDATED THEM ON THE PT'S STATUS. INFORMED THEM THAT HE WILL HAVE TO CONTINUE TO WEAR THE RESTRAINTS UNTIL HE IS NOT AT RISK OF HARMING HIMSELF. PARENTS AGREED AND HAD NO PROBLEM WITH IT. REPOSITONED FOR COMFORT AND THE TV IS ON. PT APPEARS CALM AND COOPERATIVE. WILL CONTINUE TO MONITOR.
--- NOTE | 2017-02-12 23:30 | NUR ---
REASSESSMENT COMPLETE. COMPLETE LINEN CHANGE. NO CHANGES AT THIS TIME. PT IS AWAKE AND VERY CALM. WATCHING TV. DENIES ANY NEEDS AT THIS TIME. CALL LIGHT IN REACH. WILL CONTINUE TO MONITOR.
[2017-02-13] VITALS (24 sets, daily range): BP systolic 102–139; BP diastolic 53–97
--- NOTE | 2017-02-13 01:30 | NUR ---
PT AGITATED. MOVED UP IN BED AND REPOSITIONED FOR COMFORT. FAN ON. WILL CONTINUE TO MONITOR.
--- NOTE | 2017-02-13 03:30 | NUR ---
PT HAD BM. FECAL MATTER BROWN, SEMI SOLID. COMPLETE LINEN CHANGE AND PARTIAL BATH. REASSESSMENT COMPLETE. NO CHANGES AT THIS TIME. WILL CONTINUE TO MONITOR.
--- NOTE | 2017-02-13 05:00 | NUR ---
PT'S MOTHER CALLED. UPDATED HER VIA TELEPHONE. PT HAD ANOTHER SMALL BM. LINEN CHANGE. CALL LIGHT IN REACH. TUBE FEEDING BAGS CHANGED AND DATED. WILL CONTINUE TO MONITOR.
[2017-02-13 05:10] LABS: BASOPHILS 0.3 % (0-2); EOSINOPHILS 1.7 % (0-7); HEMATOCRIT 25.5 % (42.0-54.0); HEMOGLOBIN 8.5 g/dL (13.5-17.5); IMMATURE GRANULOCYTES 2.1 % (0-5); LYMPHOCYTES 19.1 % (15-50); MCH 29.5 pg (26.0-34.0); MCHC 33.3 g/dL (31.0-37.0); MCV 88.5 fL (80.0-100.0); MEAN PLATELET VOLUME 9.3 fL (7.4-10.4); MONOCYTES 10.4 % (2-11); NEUTROPHILS 66.4 % (40-80); PLATELET COUNT 437 10x3/uL (130-400); RBC 2.88 10x6/uL (4.20-6.10); RDW 15.3 % (11.5-14.5); WBC 6.6 10x3/uL (4.8-10.8)
[2017-02-13 05:37] LABS: ALBUMIN 2.5 g/dL (3.4-5.0); ALKALINE PHOSPHATASE 84 U/L (46-116); ALT (SGPT) 81 U/L (10-68); CALC OSMOLALITY 253 mosm/kg (275-300); CALCIUM 8.6 mg/dL (8.5-10.1); CHLORIDE - SERUM 93 mmol/L (98-107); CREATINE KINASE 54 UL (21-232); CREATININE - SERUM 0.6 mg/dL (0.6-1.3); GLUCOSE 97 mg/dL (74-106); POTASSIUM - SERUM 4.3 mmol/L (3.5-5.1); PROTEIN - SERUM 7.4 g/dL (6.4-8.2); SODIUM 126 mmol/L (136-145); UREA NITROGEN 16 mg/dL (7-18); eGFR NON AFRICAN AMERICAN > 90 mL/min (90-120)
--- NOTE | 2017-02-13 07:00 | NUR ---
SHIFT ASSESSMENT COMPLETED, PT CONTINUES ON VENT VIA TRACH, RESPRIATIONS EVEN AND UNLABORED, DENIES PAIN, PEG IN PLACE PER ASPRIAITON AND AUSCULTATION, DENIES ALL NEEDS CALL LIGHT WITHIN REACH
--- NOTE | 2017-02-13 08:13 | NUR ---
PT ON TRACH COLLAR, ASSISTED UP TO CHAIR X2 ASSIST, TOLERATED WELL WITH SOME WEAKNESS, CALL LIGHT WITHIN REACH DENIES PAIN AND ALL NEEDS
--- NOTE | 2017-02-13 09:46 | NUR ---
PT BACK TO BED ASSIST X2, TOLERATED WELL, NO PULLING ON LINES/TUBES, NO PAIN NOTED, WILL CONTINUE TO MONITOR
--- NOTE | 2017-02-13 11:00 | NUR ---
PT ALERT, RESPIRATIONS EVEN AND UNLABORED, CONTIUES ON TRACH COLLAR, VSS, REPOSITIONED, BED BATH AND LINEN CHANGE PROVIDED, DENIES PAIN AND ALL NEEDS, WILL CONTIUE TO MONITOR
--- NOTE | 2017-02-13 11:54 | NUR ---
HOUSEKEEPING REFUSED TO CLEAN ROOM DUE TO EQUIPMENT, ROOM IS FREE OF ALL NONESSENTIAL CLUTTER.
--- NOTE | 2017-02-13 13:00 | NUR ---
PT ALERT, REPOSITIONED, DENIES PAIN AND ALL NEEDS, VSS, CONTINUE ON TRACH COLLAR, WILL CO NTIUE TO MONITOR
--- NOTE | 2017-02-13 15:04 | NUR ---
PT ALERT, VSS, FAMILY AT BEDSIDE FOR VISITATION, DENIES PAIN AND ALL NEEDS, REPOSITIONED, WILL CONTIUE TO MONITOR
--- NOTE | 2017-02-13 15:17 | NUR ---
OT NOTE: PT SEEN TODAY; WAS ALERT AND ABLE TO FOLLOW 1 STEP COMMANDS; PERFORMED A/AROM EXS WITH B UES. ATTEMPTED CHAIR CAR DRIVER STRENGTH EXS BUT PT UNABLE TO HOLD POSITION.
--- NOTE | 2017-02-13 15:31 | NUR ---
02/13/2017 15:22 DCP: Discharge Planning Patient tolerating TC trials. SNF facilities will require trach to be at least 30 days old prior to accepting patient. It will also be very difficult to find a facility willing to accept him while on Daptomycin, which will not be discontinued until 03/01. CM will speak with family in the morning to discuss options. CM will follow.
--- NOTE | 2017-02-13 17:00 | NUR ---
PT REPOSITIONED, NO CHANGES NOTED, VSS, WILL CONTINNUE TO MONITOR
--- NOTE | 2017-02-13 19:30 | NUR ---
REPORT RECEIVED AND CARE ASSUMED. INITIAL SHIFT ASSESSMENT COMPLETED SEE FLOWSHEET. PT CURRENTLY ON 30% TRACH COLLAR TOLERATING WELL. PT REMAINS IN CONTACT ISOLATION WITH ALL PRECAUTIONS OBSERVED. PT REMAINS MONITORED PER ICU PROTOCOL WITH ALARMS SET AND VERIFIED. ALL IV FLUIDS AND LINES AND TUBE FEEDING BAG ARE APPROPRIATLY LABELED AND ARE CURRENT.
--- NOTE | 2017-02-13 21:00 | NUR ---
MOTHER AND FATHER HERE TO VISIT. UPDATE GIVEN. FAMILY OBSERVING ISOLATION PRECAUTIONS CORRECTLY. MOTHER DEMONSTRATING ROM DONE TO HANDS AND FEET OF PT. PT DOES OWN ACTIVE ROM WELL.
--- NOTE | 2017-02-13 22:05 | NUR ---
PT PLACED BACK ON VENT BY RT PER DOCTORS ORDERS
--- NOTE | 2017-02-13 23:00 | NUR ---
SHIFT REASSESSMENT COMPLETED SEE FLOWSHEET. PT RESTLESS REQUIRING REDIRECTION FREQUENTLY.
--- NOTE | 2017-02-13 23:30 | NUR ---
PT PULLED OUT PICC LINE. NO BLEEDING NOTED. DRESSING APPLIED. 20G PIV STARTED X 1 ATTEMPT TO LEFT FOREARM. PT TOLERATED WELL. NEW IVF AND TUBING INITIATED. BILATERAL WRISTS RESTRAINTS APPLIED
[2017-02-14] VITALS (24 sets, daily range): BP systolic 102–141; BP diastolic 64–100
--- NOTE | 2017-02-14 01:00 | NUR ---
RT AT BEDSIDE TO PERFORM TREATMENT. PT CONTINUES TO NEED FREQUENT REINFORCMENT TO MAINTAIN SAFETY
--- NOTE | 2017-02-14 03:00 | NUR ---
SHIFT REASSESSMENT COMPLETED SEE FLOWSHEET. PT HAS BEEN SLEEPING FOR PAST 2 HOURS. VSS TOLERATING VENT WELL
--- NOTE | 2017-02-14 03:15 | NUR ---
call received from mother, password verified. update given
--- NOTE | 2017-02-14 03:25 | NUR ---
ASSAYER AT BEDSIDE FOR AM PCXR
[2017-02-14 04:35] LABS: BASOPHILS 0.2 % (0-2); EOSINOPHILS 1.3 % (0-7); HEMATOCRIT 26.5 % (42.0-54.0); HEMOGLOBIN 8.6 g/dL (13.5-17.5); IMMATURE GRANULOCYTES 1.3 % (0-5); LYMPHOCYTES 24.2 % (15-50); MCH 28.7 pg (26.0-34.0); MCHC 32.5 g/dL (31.0-37.0); MCV 88.3 fL (80.0-100.0); MEAN PLATELET VOLUME 9.1 fL (7.4-10.4); MONOCYTES 9.8 % (2-11); NEUTROPHILS 63.2 % (40-80); PLATELET COUNT 441 10x3/uL (130-400); RDW 15.3 % (11.5-14.5)
[2017-02-14 05:03] LABS: ALBUMIN 2.8 g/dL (3.4-5.0); ALKALINE PHOSPHATASE 86 U/L (46-116); ALT (SGPT) 78 U/L (10-68); BILIRUBIN - TOTAL 0.58 mg/dL (0.2-1.3); CALC OSMOLALITY 255 mosm/kg (275-300); CALCIUM 9.1 mg/dL (8.5-10.1); CHLORIDE - SERUM 93 mmol/L (98-107); CREATININE - SERUM 0.7 mg/dL (0.6-1.3); GLUCOSE 101 mg/dL (74-106); POTASSIUM - SERUM 4.6 mmol/L (3.5-5.1); PROTEIN - SERUM 7.8 g/dL (6.4-8.2); SODIUM 127 mmol/L (136-145); UREA NITROGEN 14 mg/dL (7-18); eGFR NON AFRICAN AMERICAN > 90 mL/min (90-120)
--- NOTE | 2017-02-14 05:32 | NUR ---
PT AWAKE SMILES UPON ENTERING THE ROOM. INDICATES WITH MOUTHING WORDS AND HAND/HEAD GESTURES HE IS "OK" AND HAS NO NEEDS. LABS REVIEWED AND ELECTROLYTE PTOTOCOL ADDRESSED
--- NOTE | 2017-02-14 06:00 | NUR ---
DR. NAIR HERE TO SEE PT, UPDATED ON PT CONDITION AND THAT PT HAS PULLED OUT PICC. PT HAS NO MEDICATION ORDERED FOR ANXIETY. NEW ORDERS PER DR. NAIR
--- NOTE | 2017-02-14 07:00 | NUR ---
PT LYING IN BED WITH FAMILY AT BED SIDE. TRACH WITH COLLAR NOTED AT 20%. PT IN WRIST RESTRAINTS. FC. LEFT WRIST PIV PATENT WITH 40ML/H NS. SCD'S ON BLE. PT ALERT AND ORRIENTED BUT UNABLE TO SPEAK DUE TO TRACH. COMMUNICATES BY POINTING AND ANSWERING QUESTIONS BY SHAKING HEAD YET OR NO. IN RESTRAINTS BECAUSE WAS NOTIFED IN REPORT THAT HE HAD RESENTLY PULLED OUT HIS PICC LINE. PEG TUBE PATENCY CHECKED VIA A&A. JEVITY AT 65ML/H. VS 97.6,,101,98%,22,130/83. DENIES PAIN AT THIS TIME. CALL LIGHT IN REACH. WILL CONT POC.
--- NOTE | 2017-02-14 08:00 | NUR ---
COMPLAINING OF ABD PAIN. BOWEL SOUNDS ACTIVE X4. ASKED PT IF HE NEEDED TO USE BR SOON AND HE SHOOK HIS HEAD YES. OFFERED A BED DYSON AND HE SHOOK HEAD NO. ASKED HIM IF HE NEEDED TO USE IN IN A LITTLE BIT AND SHOOK HIS HEAD YES. CALL LIGHT IN REACH. WILL CONT POC.
--- NOTE | 2017-02-14 09:30 | NUR ---
PT RESTRAINTS REMOVED ONE AT A TIME AND HE IMMIDIATELY GRABBED HIS TRACH COLLAR AND THREW IT. RESTRAINTS REAPPLIED AND EXPLAINED WHY HE NEEDED IT. PT DENIED PAIN OR SOB. O2 SAT 98% WILL CONT POC.
--- NOTE | 2017-02-14 10:00 | NUR ---
PT LYING IN BED RESTING WITH EYES CLOSED WITH 0 S/SX OF DISTRESS/DISCOMFORT NTOED. BREATHING NORMAL AND UNLABORED. CALL LIGHT IN REACH. WILL CONT POC.
--- NOTE | 2017-02-14 10:20 | NUR ---
NUTRITION MONITORING & EVAL CHART REVIEWED, PT REMAINS IN ISOLATION. TOLERATING PULMOCARE @ 65 CC/HR. RD FOLLOWING
--- NOTE | 2017-02-14 11:48 | NUR ---
PT LYING IN BED WITH 0 S/SX OF DISTRESS/DISCOMFORT NOTED. RESTRAINTS IN PLACE. TRACH COLLAR REMOVED AND PT SLID DOWN IN BED. HANDS HER ABLE TO REACH COLLAR. MD AT BED SIDE STATED TO REMOVE COLLAR WITH 20%O2 BECAUSE HIS O2 SAT WAS 97%.
--- NOTE | 2017-02-14 12:00 | NUR ---
O2 REMOVED BUT HUMIDIFIER APPLIED TO TRACH. WILL NO S/SX OF DISTRESS/DISCOMFORT NOTED. BREATHING NORMAL AND UNLABORED. O2 SAT STABLE.
--- NOTE | 2017-02-14 12:31 | NUR ---
PT LYING IN BED WITH FAMILY AT BED SIDE. PT ALERT AND ORIENTED BUT NO ABLE TO TALK DUE TO A TRACH. 8 THE NECK. TRACH COLLER AND PT KEEPS TRYING TO REMOVEIT WITH HANDS. WRIST RESTRAINED TO PREVENT HIM PULLING AT LINES AND TUBES. WAS NOTIFIED THAT PT PULLED OUT PICC LINE THE PREVIOUSLY. PT ABLE TO FOLLOW CERTAIN COMMANDS. EXPLAINED TO HIM THAT HE IS NOT TO PULL AT LINES AND TRACH COLLAR. TRACH COLLAR AT 30%O2. FC IN PLACE WITH ZEE YELLOW URINE. PEG TUBE PATET WITH CONT. JEVITY FEEDING AT 65ML/H. NO REDIUAL NOTED. PATENCY CHECKED VIA A&A. SCD'S IN PLACE. CALL LIGHT IN REACH. WILL CONT POC.
--- NOTE | 2017-02-14 13:45 | NUR ---
RESTING IN BED WITH 0 S/SX OF DISTRESS/DISCOMFORT NOTED. BREATHING NORMAL AND UNLABORED. NO CHANGES AT THIS TIME. CALL LIGHT IN REACH. WILL CONT POC.
--- NOTE | 2017-02-14 14:15 | NUR ---
PHYSICAL THERAPY TRANSFERED PT FROM BED TO CHAIR. PT EAGER TO TRANFSER AND HELP BUT WAS VERY WEAK. SAT IN CHAIR WITH FEET PROPPED UP. DENIES PAIN. 0 NEEDS AT THIS TIME. CALL LIGHT IN REACH.
--- NOTE | 2017-02-14 15:15 | NUR ---
PT WANTED TO GO BACK TO BED. ATTEMPTED TO SELF TRANSFER WITH FAMILYU IN ROOM. ASSISTED PT BACK TO BED WITH PHYSICIAL THERAPY X2. ABLE TO STAND UP FOR A SHORT PERIOD OF TIME AND WAS UNSTEADY ON FEET. ONCE IN BED, PT CLOSED EYES AND WAS RESTING. HUMIDIFIER PLACED OVER TRACH.
--- NOTE | 2017-02-14 15:30 | NUR ---
HUMIDIFIER IN FLOOR. PT PLACE BACK IN RESTRAINTS WHERE HE HAS ADEQUATE ROM BUT IS UNABLE TO REACH TRACH. CALL LIGHT IN REACH. WILL CONT POC.
--- NOTE | 2017-02-14 16:30 | NUR ---
ST AT BED SIDE.
--- NOTE | 2017-02-14 17:02 | NUR ---
OT NOTE: PT PERFORMED WELL TODAY; CO-TX WITH PHYSICAL THERAPY IN ORDER TO STAND AND TRANSFER FROM CHAIR TO BED; PT ABLE TO PERFORM SIT TO STAND WITH MOD/MAX ASSIST; ABLE TO TAKE APPROX 3 STEPS WITH ASSIST FOR WT SHIFT; HOWEVER, ONCE PT WAS IN BED, HE WAS ABLE TO HELP WITH BED MOB INCLUDING ROLLING AND SCOOTING UP IN THE BED; ALSO PERFORMED A/AROM EXS ONCE PT WAS SUPINE
--- NOTE | 2017-02-14 17:58 | NUR ---
PT RESTING WITH EYES CLOSED. O2 SAT 98% AT RM. NO S/SX OF DISTRESS/DISCOMFORT NOTED. BREATHING NORMAL AND UNLABORED. CALL LIGHT IN REACH. WILL CONT POC.
--- NOTE | 2017-02-14 19:10 | NUR ---
Received patient laying in bed with eyes open, assessment completed per flowsheet. Patient AO x2, disoriented to time/situation. Patient follows commands and responds appropriately, patient noticed attempting to get out of bed. Eyes PERRLA @ 4mm with brisk response, wears glasses with reddened sclera. Trach 8.0 secured with no bleeding/drainage noted, humidifier in use. S1/S2 noted Sinus Tach on telemetry with HR 108, rhythmic and regular. Breathing is slightly shallow on room air with O2 sat 97%, Rhonchi noted bilateral upper and mid wih diminished lower. Abdomen is flat and soft with bowel sounds active x4, non-tender to palpation. G-tube upper abdomen with pulmocare @ 65ml/hr, dressing CDI. Che secured via statlock, clear dark yellow urine noted. Full ROM all extremities with weakness noted, all pulses palpable with cap refill < 3 sec. 20g PIV noted L hand, patent with NS @ 40ml/hr infusing. Patient denies pain or other needs at this time, all VSS and will continue to monitor.
--- NOTE | 2017-02-14 19:31 | NUR ---
PRODUCTIVE COUGH NOTED BUT PT UNABLE TO COUGH SPETUM OUT OF BODY. DEEP SUTION AND GOT MEDIUM AMOUNT OF SPEUTUM. TOLERATED WELL.
--- NOTE | 2017-02-14 20:40 | NUR ---
Patient attempted to climb out of bed, returned to bed and repositioned. Trach/G-tube secured, PIV flushed and patent. No s/s of distress noted with patient resting. Explained to patient to remain in bed and hazards of ambulation without assistance, nods head in agreement. No further needs and will continue to monitor.
--- NOTE | 2017-02-14 21:00 | NUR ---
Patient family at bedside, no questions at this time. Encouraged to call at any time with questions/concerns, family states relief and comfort with level of care provided.
--- NOTE | 2017-02-14 23:00 | NUR ---
Reassessment completed per flowsheet, patient resting in bed with eyes open. S1/S2 noted Sinus Tach on telemetry with HR 117, rhythmic and regular. Breathing is slightly shallow on Aerosol 21% with O2 sat 98%, rhonchi noted bilateral upper and mid with diminshed lower. All pulses palpable with cap refill < 3 sec, skin warm/dry to touch. Trach secured, no bleeding drainage noted. Peg site dressing CDI, no drainage noted. Patient denies pain or other needs at this time, all VSS and will continue to monitor.
[2017-02-15] VITALS (24 sets, daily range): BP systolic 107–139; BP diastolic 72–93
--- NOTE | 2017-02-15 01:00 | NUR ---
Kristina RT at bedside for breathing treatment, patient tolerated well. Educated patient on need for aerosol with trach, states understanding but still removes periodically. All VSS and will continue to monitor.
--- NOTE | 2017-02-15 03:05 | NUR ---
Reassessment completed per flowsheet, patient resting in bed with eyes open watching TV. S1/S2 noted Sinus Tach on telemetry with HR 103, rhythmic and regular. Breathing is slightly shallow on 21% Aerosol with O2 sat 98%, Trach 8.0 secured with no bleeding/drainage noted. Peg site dressing CDI with Pulmocare 65ml/hr. Trach suctioning performed, thick white secretions noted. Patient denies pain or other needs at this time, all VSS and will continue to monitor.
[2017-02-15 03:41] LABS: BASOPHILS 0.1 % (0-2); EOSINOPHILS 1.4 % (0-7); HEMATOCRIT 29.4 % (42.0-54.0); HEMOGLOBIN 9.6 g/dL (13.5-17.5); IMMATURE GRANULOCYTES 1.4 % (0-5); MCH 28.9 pg (26.0-34.0); MCHC 32.7 g/dL (31.0-37.0); MCV 88.6 fL (80.0-100.0); MEAN PLATELET VOLUME 9.3 fL (7.4-10.4); MONOCYTES 10.6 % (2-11); NEUTROPHILS 65.5 % (40-80); PLATELET COUNT 420 10x3/uL (130-400); RBC 3.32 10x6/uL (4.20-6.10); RDW 15.5 % (11.5-14.5)
[2017-02-15 03:45] LABS: WBC 8.4 10x3/uL (4.8-10.8)
[2017-02-15 03:57] LABS: CALC OSMOLALITY 259 mosm/kg (275-300); CALCIUM 9.3 mg/dL (8.5-10.1); CARBON DIOXIDE 30.1 mmol/L (21.0-32.0); CHLORIDE - SERUM 92 mmol/L (98-107); CREATININE - SERUM 0.7 mg/dL (0.6-1.3); GLUCOSE 103 mg/dL (74-106); POTASSIUM - SERUM 4.3 mmol/L (3.5-5.1); SODIUM 129 mmol/L (136-145); UREA NITROGEN 14 mg/dL (7-18); eGFR NON AFRICAN AMERICAN > 90 mL/min (90-120)
--- NOTE | 2017-02-15 05:00 | NUR ---
Patient resting in bed with eyes closed, partial bed bath/linen change performed. Patient tolerated well, Trach suctioning performed with thick white secretions noted. Patient denies pain or other needs at this time, all VSS and will continue to monitor.
--- NOTE | 2017-02-15 06:05 | NUR ---
Spoke to family via telephone, code given and status updated. Mother stated will be here for 0900 visitation.
--- NOTE | 2017-02-15 08:00 | NUR ---
RESIDUAL NOTED AT 140ML. TUBE FEEDINGS HELD AT THIS TIME. WILL CONTINUE PLAN OF CARE.
--- NOTE | 2017-02-15 08:46 | NUR ---
RUSSO CHANGED AT THIS TIME PER DR NAIR ORDERS. 900ML NOTED FROM OLD RUSSO BEFORE IT WAS DC. NEW RUSSO PLACED, CLEAR URINE NOTED TO NEW RUSSO AND DRAINING INTO CLOSED CONTAINER. NO ACUTE DISTRESS NOTED. WILL CONTINUE PLAN OF CARE.
--- NOTE | 2017-02-15 10:39 | NUR ---
UP IN BED AWAKE AT THIS TIME. NO ACUTE DISTRESS NOTED. WILL CONTINUE PLAN OF CARE.
--- NOTE | 2017-02-15 11:36 | NUR ---
RESIDUALS CHECKED AT THIS TIME AND NOTED AT 40ML. TUBE FEEDINGS RESTARTED AT THIS TIME. PT DENIES ANY NEEDS. NO ACUTE DISTRESS NOTED. WILL CONTINUE PLAN OF CARE.
--- NOTE | 2017-02-15 14:50 | NUR ---
OT NOTE: PT PERFORMED VERY WELL TODAY; PERFORMED TRANSFER FROM BED TO CHAIR WITH MOD ASSIST X 2; SITTING ON EDGE OF BED WITH MIN ASSIST, HOWEVER, CAN MAINTAIN TRUNK CONTROL FOR APPROX 2 MIN BEFORE FALLING FORWARD; TOLERATED SITTING UP IN CHAIR APPROX 1 HR; ASSISTED BACK TO BED WITH MOD ASSIST X 2; A/AROM TO B UES
--- NOTE | 2017-02-15 14:53 | NUR ---
OT NOTE: PT COMPLETED BED MOB AND BED TO CHAIR TRANSFERS WITH KASEY Leiva. PT COMPLETED DRESSING AXS WITH KASEY Leiva. THANK YOU, ANDI BEDOLLA/Aaron
--- NOTE | 2017-02-15 15:07 | NUR ---
FAMILY AT BEDSIDE VISITING WITH PT. NO ACUTE DISTRESS NOTED. WILL CONTINUE PLAN OF CARE.
--- NOTE | 2017-02-15 17:36 | NUR ---
RESTING IN BED AT THIS TIME. NO ACUTE DISTRESS NOTED. RESPIRATIONS STEADY AND UNLABORED. AWAKENS EASILY WHEN SPOKEN TO. WILL CONTINUE PLAN OF CARE.
--- NOTE | 2017-02-15 18:07 | NUR ---
FAMILY AT BEDSIDE AT THIS TIME. NO ACUTE DISTRESS NOTED. WILL CONTINUE PLAN OF CARE.
--- NOTE | 2017-02-15 19:00 | NUR ---
Received patient resing in bed with eyes closed, assessment completed per flowsheet. Patient AO x3, some disorientation to situation but will nod appropriately when reoriented. Eyes PERRLA @ 4mm with brisk response, patient wears glasses with slightly reddened sclera. Trach 8.0 secured, slight redness noted with bleeding/drainage. S1/S2 noted NSR on telemetry with HR 91, rhythmic and regular. Breathing is slightly shallow with 21% Aerosol in use and O2 sat 98%, lung sounds clear bilateral upper with diminished lower. Abdomen is flat and soft with bowel sounds active x4, non-tender to palpation. Peg site dressing CDI with Pulmocare @ 65ml/hr. Che replaced 02/15, clear yellow urine noted. Full ROM all extremities with all pulses palpable and cap refill < 3 sec. Slight weakness noted bilateral upper extremities with moderate weakness lower. 20g PIV noted L wrist with NS @ 40ml/hr, dressing intact. Patient denies pain or other needs at this time, all VSS and will continue to monitor.
--- NOTE | 2017-02-15 21:00 | NUR ---
Patient family at bedside, updated on status with no questions at this time. Changed humidity on Aerosol, repositioned for comfort. Denies pain or other needs at this time, all VSS and will continue to monitor.
--- NOTE | 2017-02-15 23:10 | NUR ---
Reassessment completed per flowsheet, patient resting in bed with eyes closed. Trach 8.0 secured, no bleeding drainage noted. S1/S2 noted NSR on telemetry with HR 84, rhythmic and regular. Breathing is slightly shallow on room air with 21% Aerosol, O2 sat 98%. Peg site upper abdomen, dressing CDI with Pulmocare @ 65ml/hr. All Pulses palpable with cap refill < 3 sec. Patient Denies pain or other needs at this time, all VSS and will continue to monitor.
[2017-02-16] VITALS (24 sets, daily range): BP systolic 98–148; BP diastolic 52–97
--- NOTE | 2017-02-16 01:00 | NUR ---
Patient repositioned in bed, oral care/suctioning provided. Denies pain or other needs at this time, all VSS and will continue to monitor.
--- NOTE | 2017-02-16 02:05 | NUR ---
Patient IV out, will resite.
--- NOTE | 2017-02-16 02:55 | NUR ---
IV resited R upper arm, patent with NS @ 40ml/hr infusing.
--- NOTE | 2017-02-16 03:10 | NUR ---
Reassessment completed per flowsheet, patient resting in bed with eyes open. Patient follows commands and speaks softly with Trach in place. Trach 8.0 secured with no bleeding/drainage noted, Aerosol @ 21% in place. S1/s2 noted NSR on telemetry with HR 95, rhythmic and regular. Breathing is slighly shallow on room air with O2 sat 98%. Peg Site dressing CDI with Pulmocare @ 65ml/hr. All pulses palpable with cap refill < 3 sec. Denies pain or other needs at this time, all VSS and will continue to monitor.
[2017-02-16 04:17] LABS: BASOPHILS 0.2 % (0-2); EOSINOPHILS 2.1 % (0-7); HEMATOCRIT 29.2 % (42.0-54.0); HEMOGLOBIN 9.6 g/dL (13.5-17.5); IMMATURE GRANULOCYTES 2.1 % (0-5); LYMPHOCYTES 23.5 % (15-50); MCH 29.2 pg (26.0-34.0); MCHC 32.9 g/dL (31.0-37.0); MCV 88.8 fL (80.0-100.0); MONOCYTES 12.7 % (2-11); NEUTROPHILS 59.4 % (40-80); PLATELET COUNT 379 10x3/uL (130-400); RBC 3.29 10x6/uL (4.20-6.10); RDW 15.4 % (11.5-14.5)
[2017-02-16 04:20] LABS: WBC 5.8 10x3/uL (4.8-10.8)
[2017-02-16 04:30] LABS: ALKALINE PHOSPHATASE 88 U/L (46-116); ALT (SGPT) 67 U/L (10-68); CALC OSMOLALITY 256 mosm/kg (275-300); CARBON DIOXIDE 29.9 mmol/L (21.0-32.0); CHLORIDE - SERUM 91 mmol/L (98-107); CREATININE - SERUM 0.6 mg/dL (0.6-1.3); GLUCOSE 100 mg/dL (74-106); MAGNESIUM - SERUM 1.9 mg/dL (1.8-2.4); POTASSIUM - SERUM 4.1 mmol/L (3.5-5.1); SODIUM 128 mmol/L (136-145); UREA NITROGEN 13 mg/dL (7-18); eGFR NON AFRICAN AMERICAN > 90 mL/min (90-120)
--- NOTE | 2017-02-16 05:00 | NUR ---
Patient AM labs collected without difficulty, patient laying in bed with eyes open watching TV. States no pain or other needs at this time, all VSS and will continue to monitor.
--- NOTE | 2017-02-16 05:50 | NUR ---
Patient c/o nausea, tube feed stopped and 100ml residual aspirated. PRN Zofran given, will reassess.
--- NOTE | 2017-02-16 10:36 | NUR ---
NUTRITION MONITORING & EVAL CHART REVIEWED. PT REMAINS IN ISOLATION. CONTINUES TO TOLERATE PULMOCARE @ 65 CC/HR. RD FOLLOWING
--- NOTE | 2017-02-16 11:01 | EC ---
PATIENT:KATIE SARABIA DATE OF SERVICE: 02/12/17 SEX: M MEDICAL RECORD: [id number] DATE OF : [birth year] LOCATION:[place] [address] AGE OF PATIENT: 41 ADMISSION DATE: 01/09/17 REFERRING PHYSICIAN: INTERPRETING PHYSICIAN: ANGELO PAPPAS MD ECHOCARDIOGRAM REPORT ECHO CHARGES 5 ECHO LIMITED CLINICAL DIAGNOSIS: ENDOCARDITIS ECHOCARDIOGRAPHIC MEASUREMENTS (adult normal given) AC root (d.<3.7cm) 0 LV Septum d (<1.2 cm> 0 Valve Excursion 0 LV Septum (systole) 0 Left Atria (s.<4.0cm> 0 LVPW d(<1.2cm) 0 RV (d.<2.3cm) 0 LVPW (sytole) 0 LV diastole(<5.6CM) 0 MV E-F(>70mm/sec) 0 LV systole 0 LVOT Diameter 0 MV exc.(>10mm) 0 Est.ejection fraction (50-75%) 0 Pericardial Effusion N DOPPLER: LVIT 0 A 0 E 0 LA 0 RVSP 0 LVOT 0 AOP1/2T 0 Asc. Ao 0 RVOT 0 RA 0 PA 0 AV Gradient Peak 0 AV Mean 0 AV Area 0 MV Gradient Peak 0 MV Mean 0 MV Area 0 COMMENTS: LIMITED STUDY (2-D ONLY) COMPLETE ECHO DONE ON 01/09/17 & 01/18/17 Inclusion Special Educator: [facility] Manager:2 Dr. Kiser TAPE# PACS LIMITED TWO-DIMENSIONAL ECHOCARDIOGRAM WITH DOPPLER FOR EVALUATION OF POSSIBLE ENDOCARDITIS 1. Left ventricular chamber size is within normal limits. Left ventricular systolic function is normal. Overall ejection fraction is estimated at 60 percent. 2. Valvular structures have normal structure and motion. No evidence of endocarditis is present. ECHOCARDIOGRAM REPORT [id number] KATIE SARABIA ANGELO HOYT MD at 1101 CC: [id number] DICTATION DATE: 02/12/17 1400 SHELL SIEVE OPERATOR: TRISH 02/13/17 1138 ADM IN [place] [id number] [place] [address]
--- NOTE | 2017-02-16 14:48 | NUR ---
02/16/2017 14:16 DCP: Discharge Planning Rec'd phone calls from [facility] - they can not accept patient due to payor source - [facility] does not provide rehab at a SNF level of care. Call placed to [facility] [place] office - [facility] will cover inpatient rehab at a free standing rehab facility if appropriate. Referral faxed & called to Jennifer with [facility]. They will evaluate after patient on Sunday (after he is transferred to medical floor). Updated mother - she is very hopeful [facility] will accept him early next week. CM will follow.
--- NOTE | 2017-02-16 19:50 | NUR ---
PT AROUSES TO VOICE, TRACKS WITH EYES, AND FOLLOWS COMMANDS. NON-VERBAL, TRACH PRESENT AND INTACT. VSS. NO S/S OF PAIN AT THIS TIME. CURRENTLY ON ROOM AIR, SPO2 96. LUNG SOUNDS DIMINISHED. PULSES PRESENT. PEG TO LT UPPER ABD WITH DSG CDI. RUSSO INTACT. PT REPOSITIONED WITH BONY PROMINENCES BRIDGED. BILATERAL WRIST RESTRAINTS IN PLACE. ROOM VISIBLE FROM NURSES STATION. CPOC.
--- NOTE | 2017-02-16 21:00 | NUR ---
VISITORS AT BEDSIDE, QUESTIONS ANSWERED.
--- NOTE | 2017-02-16 23:51 | NUR ---
REASSESSMENT COMPLETE, NO CHANGES AT THIS TIME. PT SLEEPING QUIETLY WITH EYES CLOSED AND NON LABORED RESPIRATIONS. SPO2 97 ON ROOM AIR. NO S/S OF PAIN OR DISTRESS AT THIS TIME. ROOM VISIBLE FROM NURSES STATION. CPOC.
[2017-02-17] VITALS (24 sets, daily range): BP systolic 101–126; BP diastolic 61–89
--- NOTE | 2017-02-17 03:45 | NUR ---
REASSESSMENT COMPLETE, NO CHANGES AT THIS TIME. PT RESTING COMFORTABLY WITH NO S/S OF DISTRESS OR PAIN. ROOM VISIBLE FROM NURSES STATION. CPOC.
[2017-02-17 05:24] LABS: BASOPHILS 0.2 % (0-2); EOSINOPHILS 1.7 % (0-7); HEMATOCRIT 28.9 % (42.0-54.0); HEMOGLOBIN 9.3 g/dL (13.5-17.5); IMMATURE GRANULOCYTES 1.9 % (0-5); LYMPHOCYTES 27.7 % (15-50); MCH 28.7 pg (26.0-34.0); MCHC 32.2 g/dL (31.0-37.0); MCV 89.2 fL (80.0-100.0); MEAN PLATELET VOLUME 9.2 fL (7.4-10.4); MONOCYTES 13.4 % (2-11); NEUTROPHILS 55.1 % (40-80); PLATELET COUNT 334 10x3/uL (130-400); RBC 3.24 10x6/uL (4.20-6.10); RDW 15.4 % (11.5-14.5); WBC 5.9 10x3/uL (4.8-10.8)
[2017-02-17 05:36] LABS: CALC OSMOLALITY 260 mosm/kg (275-300); CARBON DIOXIDE 29.1 mmol/L (21.0-32.0); CHLORIDE - SERUM 93 mmol/L (98-107); CREATININE - SERUM 0.7 mg/dL (0.6-1.3); GLUCOSE 88 mg/dL (74-106); POTASSIUM - SERUM 4.4 mmol/L (3.5-5.1); SODIUM 130 mmol/L (136-145); UREA NITROGEN 15 mg/dL (7-18); eGFR NON AFRICAN AMERICAN > 90 mL/min (90-120)
--- NOTE | 2017-02-17 05:40 | NUR ---
COMPLETE LINEN CHANGE AND PARTIAL BATH GIVEN. VSS, NO S/S OF PAIN OR DISTRESS AT THIS TIME. NO ACUTE CHANGES AT THIS TIME. ORAL CARE ADM. ROOM VISIBLE FROM NURSES STATION. CPOC.
--- NOTE | 2017-02-17 10:08 | NUR ---
PT IN ROOM, PLAN TO AMBULATE PATIENT
--- NOTE | 2017-02-17 11:00 | NUR ---
NO NOTED CHANGES TO PREVIOUS ASSESSMENT
--- NOTE | 2017-02-17 15:00 | NUR ---
NO CHANGE NOTED TO PRIMARY ASSESSMENT
[2017-02-18] VITALS (24 sets, daily range): BP systolic 108–157; BP diastolic 63–86
--- NOTE | 2017-02-18 01:00 | NUR ---
ORAL CARE ADM AT THIS TIME. VSS, NO S/S OF PAIN OR DISTRESS NOTED AT THIS TIME.
--- NOTE | 2017-02-18 03:40 | NUR ---
REASSESSMENT COMPLETE, NO CHANGES AT THIS TIME. PT REPOSITIONED IN BED WITH BONY PROMINENCES BRIDGED. PARTIAL LINEN CHANGE COMPLETE. NO S/S OF DISTRESS AT THIS TIME. CPOC.
[2017-02-18 05:09] LABS: BASOPHILS 0.1 % (0-2); EOSINOPHILS 0.8 % (0-7); HEMATOCRIT 28.9 % (42.0-54.0); HEMOGLOBIN 9.2 g/dL (13.5-17.5); IMMATURE GRANULOCYTES 0.9 % (0-5); LYMPHOCYTES 18.4 % (15-50); MCH 28.3 pg (26.0-34.0); MCHC 31.8 g/dL (31.0-37.0); MCV 88.9 fL (80.0-100.0); MEAN PLATELET VOLUME 8.8 fL (7.4-10.4); MONOCYTES 9.8 % (2-11); PLATELET COUNT 316 10x3/uL (130-400); RBC 3.25 10x6/uL (4.20-6.10)
[2017-02-18 05:10] LABS: WBC 9.6 10x3/uL (4.8-10.8)
[2017-02-18 05:14] LABS: CALC OSMOLALITY 263 mosm/kg (275-300); CALCIUM 8.7 mg/dL (8.5-10.1); CARBON DIOXIDE 29.5 mmol/L (21.0-32.0); CHLORIDE - SERUM 94 mmol/L (98-107); CREATININE - SERUM 0.8 mg/dL (0.6-1.3); GLUCOSE 96 mg/dL (74-106); POTASSIUM - SERUM 4.3 mmol/L (3.5-5.1); SODIUM 131 mmol/L (136-145); UREA NITROGEN 15 mg/dL (7-18); eGFR NON AFRICAN AMERICAN > 90 mL/min (90-120)
--- NOTE | 2017-02-18 06:10 | NUR ---
COMPLETE LINEN CHANGE AND PARTIAL BATH GIVEN AT THIS TIME. VSS, NO S/S OF PAIN OR DISTRESS. PT REPOSITIONED IN BED ON L SIDE WITH BONY PROMINENCES BRIDGED. ROOM VISIBLE FROM NURSES STATION. CPOC.
--- NOTE | 2017-02-18 19:30 | NUR ---
REPORT RECIEVED. ASSESSMENT COMPLETED. PT ORIENTATED TO PLACE BUT DISORIENTED TO TIME AND SITUATION. PT FOLLOWS COMMANDS. PT LUNG SOUNDS ARE CRACKLES IN ALL UPPER LOBES AND DIMINISHED IN THE LOWER LOBES. PT IS IN NS WITH PALP PULSES IN ALL EXTREMITIES. PT IS IN WRIST RESTRAINTS DO TO PULLING AT LINES. WILL CONTINUE TO MONITOR PT.
--- NOTE | 2017-02-18 21:00 | NUR ---
PT SON AT BEDSIDE UPDATE GIVEN. WILL CONTINUE TO MONITOR PT.
--- NOTE | 2017-02-18 23:00 | NUR ---
REASSESSMENT COMPLTED. VSS. PT POSITIONED FOR COMFORT. WILL CONTINUE TO MONITOR.
[2017-02-19] VITALS (24 sets, daily range): BP systolic 97–126; BP diastolic 55–95
--- NOTE | 2017-02-19 01:00 | NUR ---
PT POSITIONED FOR COMFORT. WILL CONTINUE TO MONITOR.
--- NOTE | 2017-02-19 03:00 | NUR ---
REASSESSMENT COMPLETED NO CHANGES. PT POSITIONED FOR COMFORT. WILLL CONTINUE TO MONITOR.
[2017-02-19 03:26] LABS: BASOPHILS 0.1 % (0-2); EOSINOPHILS 0.9 % (0-7); HEMATOCRIT 29.8 % (42.0-54.0); HEMOGLOBIN 9.6 g/dL (13.5-17.5); IMMATURE GRANULOCYTES 0.6 % (0-5); LYMPHOCYTES 20.3 % (15-50); MCHC 32.2 g/dL (31.0-37.0); MEAN PLATELET VOLUME 8.9 fL (7.4-10.4); NEUTROPHILS 69.1 % (40-80); PLATELET COUNT 301 10x3/uL (130-400); RBC 3.31 10x6/uL (4.20-6.10); WBC 8.6 10x3/uL (4.8-10.8)
[2017-02-19 03:31] LABS: CALC OSMOLALITY 261 mosm/kg (275-300); CALCIUM 8.9 mg/dL (8.5-10.1); CARBON DIOXIDE 28.4 mmol/L (21.0-32.0); CHLORIDE - SERUM 95 mmol/L (98-107); CREATININE - SERUM 0.6 mg/dL (0.6-1.3); GLUCOSE 105 mg/dL (74-106); POTASSIUM - SERUM 4.3 mmol/L (3.5-5.1); SODIUM 130 mmol/L (136-145); UREA NITROGEN 14 mg/dL (7-18); eGFR NON AFRICAN AMERICAN > 90 mL/min (90-120)
--- NOTE | 2017-02-19 05:00 | NUR ---
PT POSITIONED FOR COMFORT WILL CONTINUE TO MONITOR. ORAL CARE DONE.
--- NOTE | 2017-02-19 06:15 | NUR ---
FAMILY AT BED SIDE UPDAT GIVEN WILL CONTINUE TO MONITOR.
--- NOTE | 2017-02-19 07:00 | NUR ---
PT AWAKE AND ALERT. DISORIENTED TO PLACE, TIME, AND SITUATION. PT ABLE TO SPEAK SOFTLY AT THIS TIME. TRACH NOTED WITH SITE CDI TO ROOM AIR AND PT IS TOLERATING WELL. NORMAL SINUS ON MONITOR. BILAT SCDS NOTED. PT REMAINS ON CONTACT ISOLATION. BILAT WRIST RESTRAINTS CHECKED AND SECURED. TUBE FEEDINGS INFUSING AT THIS TIME. COMPLETE SHIFT ASSESSMENT DOCUMENTED PER FLOWSHEET. WILL CONTINUE TO MONITOR
--- NOTE | 2017-02-19 09:00 | NUR ---
PT REPOSITIONED IN BED. ORAL CARE PERFORMED WITH TRACH SUCTION, MINIMAL SECRETIONS NOTED. PT REORIENTED NEEDED. VITAL SIGNS STABLE. WILL CONTINUE TO MONITOR
--- NOTE | 2017-02-19 10:27 | NUR ---
NUTRITION MONITORING & EVAL CHART REVIEWED, PT REMAINS IN ISOLATION. TOLERATING PULMOCARE @ 65 CC/HR. RD FOLLOWING
--- NOTE | 2017-02-19 11:00 | NUR ---
PT REPOSITIONED IN BED. DR CARTAGENA ROUNDED ON PT. SUCTION PERFORMED PER RT. VITAL SIGNS STABLE
--- NOTE | 2017-02-19 13:00 | NUR ---
PT UP IN CHAIR AT THIS TIME PER PHYSICAL THERAPY. MOTHER AT BEDSIDE TO ENCOURAGE PT TO STAY UP IN CHAIR. SPOKE WITH HER TO CONFIRM CODE STATUS AND DNR WAS CANCELLED. PT IS TO REMAIN A FULL CODE DOCUMENTED ON CHART. NO FURTHER CHANGES AT THIS TIME. VITAL SIGNS STABLE.
--- NOTE | 2017-02-19 13:02 | NUR ---
OT NOTE: PT SEEN IN AM WITH PHYSICAL THERAPY; PT MORE LETHARGIC TODAY; PERFORMED BED MOB WITH MIN ASSIST; STATIC SITTING WITH MIN ASSIST; DYNAMIC SITTING WITH MOD ASSIST; MOD X 2 FOR SIT TO STAND AND TRANSFER; ATTEMPTED TAKING STEPS, HOWEVER, PT WITH INCREASED DIFFICULTY TODAY. AFTER TRANSFERRING INTO CHAIR, PT WANTED TO RETURN TO BED, HOWEVER, HE WAS ENCOURAGED TO STAY UP LONG POSSIBLE
--- NOTE | 2017-02-19 14:00 | NUR ---
RESTRAINTS DC AND DOCUMENTED PER FLOWSHEET. WILL MONITOR PT CLOSELY FOR SAFETY AND NEED FOR RESTRAINTS. PT STABLE AND RESTING PEACEFULLY AT THIS TIME.
--- NOTE | 2017-02-19 15:00 | NUR ---
PT RESTING AT THIS TIME. FAMILY AT BEDSIDE, UPDATE GIVEN. VITAL SIGNS STABLE
--- NOTE | 2017-02-19 17:00 | NUR ---
NO ACUTE CHANGES IN PT STATUS AT THIS TIME. VITAL SIGNS STABLE. WILL CONTINUE TO MONITOR
--- NOTE | 2017-02-19 19:30 | NUR ---
REPORT RECIEVED. ASSESSMENT COMPLETED. PUPILS OF 3 AND REACTIVE. PT CONFUSED TO TIME AND SITUATION. LUNGS HAVE CRACKLES IN ALL LOBES OF THE LUNGS TO ASCULTATION. NORMAL SINUS RHYTHM WITH PULSES PALP IN ALL EXTREMITIES. VSS. WILL CONTINUE TO MONITOR PT.
--- NOTE | 2017-02-19 21:00 | NUR ---
NO FAMILY AT BED SIDE. PT STABLE WILL CONTINUE TO MONITOR.
--- NOTE | 2017-02-19 23:00 | NUR ---
REASSESSMENT COMPLETED. NO CHANGES PT VSS. WILL CONTINUE TO MONITOR.
[2017-02-20] VITALS (20 sets, daily range): BP systolic 94–116; BP diastolic 57–78
--- NOTE | 2017-02-20 01:00 | NUR ---
PT ASLEEP POSITIONED FOR COMFORT WILL CONTINUE TO MONITOR. VSS.
--- NOTE | 2017-02-20 03:00 | NUR ---
REASSESSMENT COMPLETED. NO ACUTE CHANGES. VSS. POSITIONED PT FOR COMFORT WILL CONTINUE TO MONITOR.
[2017-02-20 04:15] LABS: BASOPHILS 0.2 % (0-2); EOSINOPHILS 3.4 % (0-7); HEMOGLOBIN 9.6 g/dL (13.5-17.5); IMMATURE GRANULOCYTES 0.8 % (0-5); LYMPHOCYTES 32.1 % (15-50); MCV 90.6 fL (80.0-100.0); MONOCYTES 12.9 % (2-11); NEUTROPHILS 50.6 % (40-80); PLATELET COUNT 300 10x3/uL (130-400); RBC 3.31 10x6/uL (4.20-6.10)
[2017-02-20 04:30] LABS: CALC OSMOLALITY 262 mosm/kg (275-300); CALCIUM 8.6 mg/dL (8.5-10.1); CARBON DIOXIDE 31.2 mmol/L (21.0-32.0); CHLORIDE - SERUM 96 mmol/L (98-107); CREATINE KINASE 26 UL (21-232); CREATININE - SERUM 0.7 mg/dL (0.6-1.3); GLUCOSE 97 mg/dL (74-106); POTASSIUM - SERUM 4.7 mmol/L (3.5-5.1); SODIUM 131 mmol/L (136-145); UREA NITROGEN 13 mg/dL (7-18); eGFR NON AFRICAN AMERICAN > 90 mL/min (90-120)
--- NOTE | 2017-02-20 05:00 | NUR ---
PT SLLEPING WITH NO DISTRESS. VSS. WILL CONTINUE TO MONITOR.
--- NOTE | 2017-02-20 07:00 | NUR ---
PT AWAKE AND ALERT. ABLE TO ANSWER QUESIONS APPROPRIATELY AND VERBALIZE NEEDS. PT DENIES PAIN. HELPED TO REPOSITION PT IN BED FOR COMFORT WITH MINIMAL ASSISTANCE. ORAL CARE PERFORMED AND TRACH SUCITON, MINIMAL SECRETIONS NOTED. NORMAL SINUS ON MONITOR. BILAT SCDS NOTED. COMPLETE SHIFT ASSESSMENT DOCUMENTED PER FLOWSHEET. VITAL SIGNS STABLE. WILL CONTINUE TO MONITOR
--- NOTE | 2017-02-20 09:00 | NUR ---
PT ASLEEP AT THIS TIME. FAMILY AT BEDSIDE AND UPDATE GIVEN. NO ACUTE CHANGES AT THIS TIME.
--- NOTE | 2017-02-20 11:00 | NUR ---
NO CHANGES IN PT STATUS AT THIS THIS TIME. MOTHER CALLED AND UPDATE GIVEN. VITAL SIGNS STABLE
--- NOTE | 2017-02-20 13:05 | NUR ---
PT SAT UP IN CHAIR WITH PHYSICAL THERAPY. TOLERATED MOVEMENT WELL. PT COVERED WITH SHEET AND STATES THAT HE IS COMFORTABLE. WILL CONTINUE TO MONITOR CLOSELY
--- NOTE | 2017-02-20 14:45 | NUR ---
MELY WITH CASE MANAGEMENT CALLED BOTH DR NAIR AND DR CARTAGENA AND THEY STATED THAT PT IS STABLE TO TRANSFER TO FLOOR. ORDER DOCUMENTED IN COMPUTER. NO CHANGES IN PT STATUS AT THIS TIME. WILL CONTINUE TO MONITOR
--- NOTE | 2017-02-20 15:07 | NUR ---
02/20/2017 15:00 DCP: Discharge Planning [facility] They will begin evaluation process once they have been notified he has transferred out of ICU to medical floor. Orders rec'd from Dr. Worley & Dr. Santiago to transfer to floor. CM will follow.
--- NOTE | 2017-02-20 16:00 | NUR ---
PT REPOSITIONED IN BED FOR COMFORT. ACTIVE ROM PERFORMED IN EXTREMITIES X4. VITAL SIGNS STABLE. FAMILY GIVEN UPDATE. WAITING FOR TRANSFER TO FLOOR. WILL CONTINUE TO MONITOR
--- NOTE | 2017-02-20 19:00 | NUR ---
REPORT RECEIVED. ASSESSMENT COMPLETE PER FLOW SHEET. S1S2 PRESENT. TELEMETRY MONITORING SINUS RYTHM HR 94. RADIAL AND POPLITEAL PULSES PALP. PULMOCARE INFUSING VIA PEG TUBE AT 65 MLS/HR. SCDS ON. SEE FLOW SHEET FOR COMPLETE ASSESSMENT. DENIES FURTHER NEEDS AT THIS TIME. CALL LIGHT WITHIN REACH. BED IN LOWEST POSITION. WILL CONTINUE TO MONITOR.
--- NOTE | 2017-02-20 21:00 | NUR ---
LAYING IN BED AWAKE. MOTHER IN ROOM, REPORT GIVEN ON STATUS. DENIES NEEDS AT THIS TIME. CALL LIGHT WITHIN REACH. BED IN LOWEST POSITION. WILL CONTINUE TO MONITOR.
--- NOTE | 2017-02-20 23:00 | NUR ---
LAYING IN BED. VSS. NO CHANGES NOTED WILL CONTINUE TO MONITOR.
[2017-02-21] VITALS (10 sets, daily range): BP systolic 113–135; BP diastolic 63–81
--- NOTE | 2017-02-21 00:30 | NUR ---
PT FOUND IN ROOM ON FLOOR. INCONTINENT OF STOOL. PT ASSISTED UP TO CHAIR. AWAKE AND ALERT. DENIES PAIN. SMALL ABRASION NOTED TO RIGHT SCAPULA AREA OF BACK. COMPLETE BATH AND LINEN CHANGED. PT ASSISTED X3 BACK TO BED.
--- NOTE | 2017-02-21 01:10 | NUR ---
DR. MEDINA PAGED AND NOTIFIED OF FALL. NO NEW ORDERS.
--- NOTE | 2017-02-21 01:10 | NUR ---
DR. MEDINA NOTIFIED OF PT FALLING. NO INJURIES NOTED. NO NEW ORDERS RECEIVED.
--- NOTE | 2017-02-21 01:30 | NUR ---
LAYING IN BED. DENIES NEEDS AT THIS TIME. ENCORAGED TO STAY IN BED AND DEMONSTRATED TO PUSH RED BUTTON DEWAXER LIGHT FOR ASSISSTANCE, VERBALIZES UNDERSTANDING. CALL LIGHT WITHIN REACH. BED IN LOWEST POSITION. VSS. WILL CONTINUE TO MONITOR.
--- NOTE | 2017-02-21 02:15 | NUR ---
LAYING IN BED AWAKE. DENIES NEEDS AT THIS TIME. CALL LIGHT WITHIN REACH. BED IN LOWEST POSITION. VSS. WILL CONTINUE TO MONITOR.
--- NOTE | 2017-02-21 03:00 | NUR ---
LAYING IN BED SLEEPING. VSS. BED IN LOWEST POSITION. CALL LIGHT WITHIN REACH. WILL CONTINUE TO MONITOR.
--- NOTE | 2017-02-21 04:00 | NUR ---
LAYING IN BED, AWAKE AND ALERT, DENIES NEEDS AT THIS TIME. CALL LIGHT WITHIN REACH. BED IN LOWEST POSITION. VSS. WILL CONTINUE TO MONITOR.
[2017-02-21 04:23] LABS: BASOPHILS 0.2 % (0-2); EOSINOPHILS 1.7 % (0-7); HEMATOCRIT 30.2 % (42.0-54.0); HEMOGLOBIN 9.7 g/dL (13.5-17.5); IMMATURE GRANULOCYTES 0.7 % (0-5); LYMPHOCYTES 34.4 % (15-50); MCH 28.8 pg (26.0-34.0); MCHC 32.1 g/dL (31.0-37.0); MCV 89.6 fL (80.0-100.0); MEAN PLATELET VOLUME 8.4 fL (7.4-10.4); MONOCYTES 12.1 % (2-11); NEUTROPHILS 50.9 % (40-80); PLATELET COUNT 256 10x3/uL (130-400); RBC 3.37 10x6/uL (4.20-6.10); RDW 14.7 % (11.5-14.5); WBC 5.7 10x3/uL (4.8-10.8)
[2017-02-21 04:31] LABS: CALC OSMOLALITY 262 mosm/kg (275-300); CARBON DIOXIDE 30.8 mmol/L (21.0-32.0); CHLORIDE - SERUM 94 mmol/L (98-107); CREATININE - SERUM 0.7 mg/dL (0.6-1.3); GLUCOSE 99 mg/dL (74-106); POTASSIUM - SERUM 4.9 mmol/L (3.5-5.1); SODIUM 131 mmol/L (136-145); UREA NITROGEN 13 mg/dL (7-18); eGFR NON AFRICAN AMERICAN > 90 mL/min (90-120)
--- NOTE | 2017-02-21 05:00 | NUR ---
LAYING IN BED AWAKE, DENIES NEEDS AT THIS TIME. ALERT AND ORIENTED. DENIES PAIN. CALL LIGHT WITHIN REACH. BED IN LOWEST POSITION.
--- NOTE | 2017-02-21 06:00 | NUR ---
AWAKE AND ALERT. MOTHER AT BEDSIDE. VSS. CALL LIGHT WITHIN REACH. BED IN LOWEST POSITION. WILL CONTINUE TO MONITOR.
--- NOTE | 2017-02-21 07:00 | NUR ---
DR. NAIR AT BEDSIDE. NEW ORDERS OBTAINED. VSS. CALL LIGHT WITHIN REACH. BED IN LOWEST POSITION.
--- NOTE | 2017-02-21 09:56 | NUR ---
NUTRITION MONITORING & EVAL CHART REVIEWED, PT TO MOVE TO FLOOR. TOLERATING PULMOCARE @ 65 CC/HR. RD FOLLOWING
--- NOTE | 2017-02-21 10:36 | NUR ---
02/21/2017 10:34 DCP: Discharge Planning Patient transferring to room 2136 today. Notified Jennifer via voicemail of transfer. Updated clinical faxed for evaluation. Discussed with patient & parents - all agree with dc plan. Parents request letter for Social Security Office showing patient is in the hospital and unable to go to the SS office in person to initiate disability claim - letter provided. CM will follow.
--- NOTE | 2017-02-21 11:06 | NUR ---
REPORT CALLED TO MED 2, PT TRANSFERED TO FLOOR VIA BED, FAMILY AT BS.
--- NOTE | 2017-02-21 11:44 | NUR ---
PT ARRIVED TO FLOOR VIA BED WITH ICU STAFF. PT HAS A TRECH WITH HUMIDIFIED ROOM AIR. RUSSO. PEG TUBE WITH PULMICARE AT 65CC/HR. PT IS NPO. IV TO LEFT ARM, SL, 20G. PARENTS AT BEDSIDE. WILL CONTINUE TO MONITOR.
--- NOTE | 2017-02-21 19:32 | NUR ---
ASSESSMENT COMPLETE, IN BED RESTING WITH EEYS CLOSED, PT RESPONDS TO VERBAL STIMULI. HUMIDIFIED AIR TO TRACH. IV TO LEFT ARM SL, SITE CLEAN AND DRY. PEG TUBE WITH PULMACARE INFUISNIG AT 65 CC/HR. RUSSO DRAINING TO GRAVITY. FIRST STEP AIR LUISANA INFLATED, SR UP X3. BED LOW, CL IN REACH, WILL CONT TO MONITOR.
--- NOTE | 2017-02-21 23:00 | NUR ---
ASSIST PT WITH BED DYSON, CLEAN LINENS AND GOWN PLACED ON PT AND BED. PTS PARENTS AT BED SIDE.
[2017-02-22] VITALS: BP 107/67
--- NOTE | 2017-02-22 01:36 | NUR ---
CALL LIGHT IN REACH, WILL CONTINUE WITH PLAN OF CARE.
[2017-02-22 05:18] LABS: BASOPHILS 0.2 % (0-2); EOSINOPHILS 2.9 % (0-7); HEMATOCRIT 31.2 % (42.0-54.0); HEMOGLOBIN 10.2 g/dL (13.5-17.5); IMMATURE GRANULOCYTES 0.6 % (0-5); LYMPHOCYTES 39.5 % (15-50); MCH 29.1 pg (26.0-34.0); MCHC 32.7 g/dL (31.0-37.0); MCV 88.9 fL (80.0-100.0); MONOCYTES 12.8 % (2-11); PLATELET COUNT 284 10x3/uL (130-400); RBC 3.51 10x6/uL (4.20-6.10); RDW 14.7 % (11.5-14.5); WBC 4.8 10x3/uL (4.8-10.8)
[2017-02-22 05:38] LABS: CALC OSMOLALITY 256 mosm/kg (275-300); CALCIUM 8.8 mg/dL (8.5-10.1); CHLORIDE - SERUM 92 mmol/L (98-107); CREATININE - SERUM 0.6 mg/dL (0.6-1.3); GLUCOSE 94 mg/dL (74-106); POTASSIUM - SERUM 4.5 mmol/L (3.5-5.1); SODIUM 128 mmol/L (136-145); UREA NITROGEN 12 mg/dL (7-18); eGFR NON AFRICAN AMERICAN > 90 mL/min (90-120)
[2017-02-22 06:24] VITALS: BP 120/79
[2017-02-22 08:00] VITALS: BP 124/84
--- NOTE | 2017-02-22 08:09 | NUR ---
AM ROUNDS - PT IS AWAKE IN BED WATCHING TV. YELLOW BAND ON. CALL LEACH IN USE/REACH. BED AT LOWEST POSITION. 1ST STEP OVERLAY MATTRESS. NON SKID SOCKS ON. RUSSO DRAINING CLEAR YELLOW. PEG FEEDING TUBE WITH PULMACARE AT 65CC/HR. IV TO RIGHT UPPER ARM, SL. SIDE RAILS UP X3. PT REFUSES SCD AT THIS TIME. PT IS ON CONTACT ISOLATION. NO NEEDS AT THSI TIME. WILL CONTINUE TO MONITOR
--- NOTE | 2017-02-22 12:00 | NUR ---
MORNING MEDICATIONS GIVEN. NO FUTHER NEEDS AT THIS TIME. WILL CONTINUE TO MONITOR
--- NOTE | 2017-02-22 12:43 | NUR ---
STARTED BLADDER TRAINING PER ORDER. WILL RECHECK ON 1 HOUR.
--- NOTE | 2017-02-22 13:15 | NUR ---
ASSESSED ALL RESPIRATORY VITALS WITHIN PARAMETERS PT REFUSED TX. FOUND TRACHE COLLAR OFF, AND EXPLAINED THE IMPORTANCE OF WEARING PT GESTURED UNDERSTANDING REAPPLIED TRACHE COLLAR
--- NOTE | 2017-02-22 14:50 | NUR ---
1345 - RECHECKED RUSSO. PT SAYS HE HAS THE URGE TO URINATE. UNCLAMPED RUSSO. NO URINE. 1400 - RECLAMPED RUSSO. WILL REASSESS IN 1 HR
[2017-02-22 16:00] VITALS: BP 108/65
[2017-02-22 19:00] VITALS: BP 115/69
--- NOTE | 2017-02-22 19:24 | NUR ---
Patient Name: KATIE SARABIA Encounter No: [id number] : 1975 Primary Insurance: [place]ID [place] Anticipated DC Date: 01-24-2017 Planned Disposition: NURSING FACILITY, [facility] CERTIFICATION External Planned Provider: NO PROVIDER PREFERENCE DCP follow-up note: [facility] ARRIVED AND SPOKE TO CM, ADVISED THAT PT HAS MEDICAID AND THAT IT IS TRUE THAT PT'S MEDICAID DAYS DO NOT RUN OUT, HOWEVER, REIMBURSEMENT RATE DECREASES THE NUMBER OF ACUTE DAYS ARE USED. [facility] INDICATED THAT THEY WILL NOT ACCEPT PT AND REFERRED TO SNF PLACEMENT. CM MET WITH PT AND HIS PARENTS IN ROOM, DISCUSSED ABOVE INFORMATION. PARENTS WOULD LIKE PT PLACED CLOSE TO [facility] POSSIBLE AND UNDERSTAND THAT PT WILL NOT RECEIVE TRUE THERAPY SERVICES IN THE [facility], THAT PT'S SOCIAL SECURITY CHECK WILL BE TAKEN BY THE SKILLED FACILITY, AND THAT CM WILL NEED TO FIND A FACILITY WILLING TO TAKE PT. PT ALSO HAS BIPOLAR AND SCHIZOPHRENIA AND WILL REQUIRE [facility] SCREENING. CHOICE PROVIDED, FAMILY ASKED THAT PT NOT BE PLACED AT [facility] OR [facility] WITH NO OTHER PREFERENCE, CHOICE SIGNED. PT WILL REQUIRE SNF FACILITY REFERRALS AND [facility] COMPLETED. CM TO BEGIN WORKING ON THIS SOON POSSIBLE. [employer], CASE MANAGMENT
--- NOTE | 2017-02-22 19:30 | NUR ---
PT. IN BED ON FIRST STEP MATTRESS AND FATHER AT BEDSIDE. ASSESSMENT COMPLETED. PEG TUBE INFUSING FEEDING OF PULMOCARE AT 65CC/HR VIA PUMP WITHOUT ANY PROBLEMS. CALL LIGHT WITHIN REACH.
--- NOTE | 2017-02-22 23:12 | NUR ---
PT. IN BED WITH HOB UP AT LEAST 30 DEGREES TF IS INFUSING VIA PUMP AT 65CC/HR WITH H2O FLUSH OF 30CC'S EVERY 3 HOURS WITHOUT ANY PROBLEMS. SCD'S IN PLACE AND ON, RUSSO CATHETER WITH BLADDER TRAINING IN PROGRESS AND ONE OF PT'S SONS IS STAYING WITH HIM TONIGHT. CALL LIGHT WITHIN REACH.
--- NOTE | 2017-02-23 03:01 | NUR ---
PT. IN BED WITH HOB UP AT LEAST 30 DEGREES WITH TF OF PULMOCARE RUNNING AT 65CC/HR VIA PUMP WITH H2O FLUSHES Q 3 HOURS OF 30CC'S WITHOUT ANY ALARMS. EYES CLOSED AND RESP. EVEN. ONE OF PT'S SONS IS STILL IN ROOM WITH PT. KARAN TO BSD W/BLADDER TRAINING CONTINUING. CALL LIGHT WITHIN REACH.
[2017-02-23 04:00] VITALS: BP 156/75
[2017-02-23 04:46] LABS: BASOPHILS 0.2 % (0-2); EOSINOPHILS 3.5 % (0-7); HEMATOCRIT 29.8 % (42.0-54.0); HEMOGLOBIN 9.8 g/dL (13.5-17.5); IMMATURE GRANULOCYTES 1.1 % (0-5); LYMPHOCYTES 40.3 % (15-50); MCH 28.8 pg (26.0-34.0); MCHC 32.9 g/dL (31.0-37.0); MCV 87.6 fL (80.0-100.0); MEAN PLATELET VOLUME 8.7 fL (7.4-10.4); MONOCYTES 14.5 % (2-11); NEUTROPHILS 40.4 % (40-80); PLATELET COUNT 249 10x3/uL (130-400); RDW 14.4 % (11.5-14.5); WBC 4.6 10x3/uL (4.8-10.8)
[2017-02-23 05:14] LABS: ALBUMIN 3.1 g/dL (3.4-5.0); ALKALINE PHOSPHATASE 74 U/L (46-116); ALT (SGPT) 57 U/L (10-68); BILIRUBIN - TOTAL 0.41 mg/dL (0.2-1.3); CALC OSMOLALITY 253 mosm/kg (275-300); CALCIUM 8.6 mg/dL (8.5-10.1); CARBON DIOXIDE 28.6 mmol/L (21.0-32.0); CHLORIDE - SERUM 92 mmol/L (98-107); CREATININE - SERUM 0.7 mg/dL (0.6-1.3); GLUCOSE 93 mg/dL (74-106); POTASSIUM - SERUM 4.7 mmol/L (3.5-5.1); PROTEIN - SERUM 7.7 g/dL (6.4-8.2); SODIUM 126 mmol/L (136-145); UREA NITROGEN 14 mg/dL (7-18); eGFR NON AFRICAN AMERICAN > 90 mL/min (90-120)
--- NOTE | 2017-02-23 06:08 | NUR ---
PT. IN BED WITH HOB UP AT LEAST 30 DEGREES FOR TF THAT IS RUNNING IN AT 65CC/HR VIA PUMP WITHOUT ANY ALARMS. RUSSO TO BSD AND BLADDER TRAINING CONTINUES. CALL LIGHT WITHIN REACH.
--- NOTE | 2017-02-23 07:56 | NUR ---
AM ROUNDS - PT IS AWAKE AND ALERT IN BED WITH SON AT BEDSIDE. PT REQUESTED TO HAVE HIS NON SKID SOCKS AND SCDS TAKEN OFF. PT HAS YELLOW BAND ON. BED AT LOWEST POSITION. 1ST STEP OVERLAY MATTRESS. PEG TUBE RUNNING AT 65CC/HR. PT IS BLADDER TRAINING AND RUSSO IS UNCLAMPED AT THIS TIME. RUSSO DRAINING A CLEAR YELLOW. IV TO RIGHT UPPER ARM, SL. PT IS ON HUMIDIFIED RA, PRN. PT HAS A TRECH. PT IS ON CONTACT ISO, MRSA BLOOD. NO NEEDS AT THIS TIME. WILL CONTINUE TO MONITOR
[2017-02-23 08:00] VITALS: BP 110/70
--- NOTE | 2017-02-23 10:54 | NUR ---
CLAMPED RUSSO FOR BLADDER TRAINING
[2017-02-23 12:00] VITALS: BP 104/60
--- NOTE | 2017-02-23 13:12 | OP ---
PATIENT NAME: KATIE SARABIA MEDICAL RECORD: [id number] :[birth year] LOCATION:D.M2 D.2136 ADMISSION DATE:01/09/17 SURGEON: KASH SHERMAN MD OPERATION DATE: 01/09/17 DATE OF OPERATION: 01/26/2017 DIAGNOSIS: Post-TPA administration intracerebellar hemorrhage. PROCEDURES: Right frontal vicki hole craniotomy and placement of ventriculostomy for external ventricular drainage. SURGEON: Kash Sherman MD. BLADE OPERATOR: Glynn Navarro MD. SUMMARY: The patient was taken to the operating room and after an adequate level of general anesthetic, was prepped and draped in the usual aseptic manner in a supine position. An incision was made over the coronal suture on the right with a 10-blade after infiltrating with 1:400,000 of epinephrine and 0.5% lidocaine. A Gelpi retractor was used to maintain exposure and a chassis engineer was used to make a vicki hole. Bone flakes were removed from base of the vicki hole using a curette. An incision was then made in the dura and a ventricular catheter was inserted into the frontal horn of the right lateral ventricle. Following this, the distal end of the catheter was brought out through a separate skin opening and secured with 2-0 silk to the scalp. The distal end of the catheter was then occluded to prevent unnecessary loss of spinal fluid. Following this, the wound was closed with 2-0 Dexon on the galea and skin abi on the skin. The patient was then bandaged and taken to the intensive care unit in stable condition. TRANSINT:[id number] Voice Confirmation ID: [id number] DOCUMENT ID: [id number] KASH SHERMAN MD at 1312 CC: [id number] DICTATION DATE: 01/26/17 1535 LITERACY TUTOR: 01/26/17 2320 ADM IN [id number] [place] [address]
--- NOTE | 2017-02-23 13:56 | NUR ---
Nutrition follow-up: Pt working with speech on swallow function. PEG tube with Pulmocare infusing @ 65 ml/hr Labs reviewed Pt tolerating TF at this time. RDN following.
--- NOTE | 2017-02-23 14:39 | NUR ---
PT STATES HE HAS THE URGE TO URINATE. UNCLAMPED RUSSO. CLEAR YELLOW DRAINING
--- NOTE | 2017-02-23 14:47 | NUR ---
OT NOTE: PT COMPLETED BUE AROM EXS FOR INCREASED AX CONNIE WITH FUNCTIONAL AXS. PT COMPLETED BED MOB WITH CGA. THANK YOU, ANDI BEDOLLA/Aaron
[2017-02-23 16:00] VITALS: BP 112/65
--- NOTE | 2017-02-23 18:33 | NUR ---
CLAMPED RUSSO FOR BLADDER TRAINING
--- NOTE | 2017-02-23 19:30 | NUR ---
REPORT RECIEVED. PT RESTING IN BED. FAMILY AT BEDSIDE. UPDATED FAMILY ON OUR PLAN FOR THE NIGHT. NO SIGNS OF DISTRESS NOTED. TV ON, BED IN LOWEST POSITION, CALL LIGHT IN REACH. WILL CONTINUE WITH POC.
[2017-02-23 20:00] VITALS: BP 105/65
--- NOTE | 2017-02-23 21:48 | NUR ---
SHIFT ASSESSMENT COMPLETE. PT IS IN GOOD SPIRITS AND STATES THAT HE IS TIRED. PT IS CURRENTLY ON HIS LEFT SIDE SLEEPING. NO SIGNS OF DISTRESS NOTED. WILL CONTINUE TO MONITOR.
[2017-02-24] VITALS: BP 112/67
--- NOTE | 2017-02-24 00:14 | NUR ---
PT STATED THAT HE HAD TO HAVE A BM. TURNED OUT TO JUST BE GAS. HE STATES THAT HIS STOMACH HURTS AND HE FEELS LIKE HE HAS A LOT OF GAS. PT CALLED MOTHER AND MOTHER IS COMING UP TO THE HOSPITAL NOW. REPOSITIONED FOR COMFORT. CHANGED TF TUBING, INITIAL, DATE, AND SUPPLEMENT ON TF BAG. CALL LIGHT AND PHONE WITHIN REACH. 2 SIDERAILS UP. BED IN LOWEST POSITION. WILL CONTINUE TO MONITOR.
[2017-02-24 04:00] VITALS: BP 114/71
--- NOTE | 2017-02-24 04:23 | NUR ---
FATHER AT BEDSIDE. PT STATES THAT HE HAS PAIN IN HIS ABDOMEN AND THAT HE IS VERY ANXIOUS. PT REQUESTED BOTH HIS PRN PAIN MED AND HIS PRN ANXIETY MED. WILL REASSESS PAIN PROMPTLY. DOUBLE END PRODUCTION GRINDER'S GIVING COMPLETE BED BATH AT THIS TIME. TRACH COLLAR ON. WILL CONTINUE WITH PLAN OF CARE.
--- NOTE | 2017-02-24 06:33 | NUR ---
PT HAS BEEN VERY ANXIOUS FOR MOST OF THE NIGHT. HE STATES THAT HIS STOMACH HURTS AND THAT HIS HEAD IS STARTING TO HURT. ADMINISTERED PRN PAIN MEDICATION. REPOSITIONED FOR COMFORT. FATHER AT BEDSIDE. BED IN LOWEST POSITION. CALL LIGHT IN REACH. WILL REASSESS PROMPTLY.
[2017-02-24 08:22] VITALS: BP 114/71
--- NOTE | 2017-02-24 08:56 | NUR ---
INTRODUCED MYSELF TO PT PRIMARY RN FOR TODAYS SHIFT. PT VERY TIRED AND ASKED ME TO ALLOW HIM TO SLEEP A LITTLE LONGER BEFORE GIVING HIS MORNING MEDICATION VIA PEG TUBE. WILL ALLOW PT TO REST AND THEN PROVIDED MEDS. SHIFT ASSESSMENT COMPLETED. PT HAS RUSSO CLAMPED FOR BLADDER TRAINING AND DENIES NEED TO VOID. PEG TUBE IN PLACE WITH DRSG CDI AND PULMOCARE INFUSING @65ML/HR. PTS TRACH COLLAR IS CURRENTLY CAPPED OFF PER RT AND PT TOLERATING WITHOUT ANY DIFFICULTIES BREATHING OR DECREASE IN 02 SATS. PT ON OVERLAY MATTRESS AND RESTING QUIETLY. CL IN REACH, BED IN LOWEST, SIDE RAILS X2. WILL CPOC.
--- NOTE | 2017-02-24 10:45 | NUR ---
CHANGED G-TUB DRSG. CLEANSED WITH ASEPTIC FOAM CLEANSER, PATTED DRY AND APPLIED STEPHANIE DRAIN DRSG. SITE HEALING NORMAL, NO S/S OF INFECTION NOTED. PT RESTING AND DENIES ANY CURRENT NEEDS. WILL CPOC.
--- NOTE | 2017-02-24 10:56 | CN ---
PATIENT NAME:KATIE SARABIA MEDICAL RECORD: [id number] : 77 LOCATION:D. 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 I was asked to see the patient in this regard. The patient is on ventilator, he gives no history. He is a Shinto. His TPA has been stopped. He has had no melena. I started him on some Protonix drip when I first heard about this consult and on looking at his OG tube at present, there is no further bleeding. His hematocrit has actually risen from 28-30 overnight. + PAST MEDICAL HISTORY: As above. He has also had bacterial endocarditis back in 2013. He has had problem with depression and having longstanding of IV drug use. PAST SURGICAL HISTORY: Remarkable for cholecystectomy and surgery for broken jaw. ALLERGIES: PENICILLIN. SOCIAL HISTORY: The patient is a longtime smoker. He also has a history of alcohol use as well as recreational drug use and abuse. CURRENT MEDICATIONS: Include Maxipime, Pulmicort, Protonix drip, which was started last night, IV vancomycin, metoprolol, daptomycin, guaifenesin, Lasix and Naprosyn which we are stopping. PHYSICAL EXAMINATION: GENERAL: Reveals a middle-aged white male who is unresponsive, on a ventilator. NECK: He has an OG-tube now with brown coffee-ground material present. CHEST: Clear anteriorly. HEART: Regular rate and rhythm. ABDOMEN: Soft, nontender. EXTREMITIES: No edema. LABORATORY DATA: As above. IMPRESSION: Very mild gastrointestinal bleed, most likely due to OG trauma and possibly to NSAID-induced gastropathy, aggravated by his recent TPA and heparin. RECOMMENDATION: 1. Protonix drip. 2. I see no need for any endoscopy at this time. 3. Stop his Naprosyn. 4. Prognosis is very guarded. TRANSINT:[id number] Voice Confirmation ID: [id number] DOCUMENT ID: [id number] CONSULT REPORT [id number] KATIE SARABIA JOHN MD at 1056 CC: ELICEO ROGER DO [id number] DICTATION DATE: 01/27/17 1327 ORACLE ERP DEVELOPER: 01/27/17 1839 ADM IN [facility] [address] [id number]
--- NOTE | 2017-02-24 16:11 | NUR ---
PT CONTINUES TO C/O ABDOMINAL PAIN DESPITE PAIN MEDS GIVEN. TURNED OFF PEG TUBE FEEDING AND WILL CHECK RESIDUAL. BOWEL SOUNDS ARE ACTIVE X4 AND STOMACH IS SOFT AND NONDISTENDED. PT CANT EXPLAIN PAIN JUST CONTINUOUSLY SAYS "IT HURTS, ITS HURTING" PT STATES HE HASNT HAD A BOWEL MOVEMENT IN A COUPLE DAYS. WILL CHECK FOR STOOL SOFTNER AND CTM.
[2017-02-24 16:40] VITALS: BP 112/68
[2017-02-24 19:00] VITALS: BP 107/59
--- NOTE | 2017-02-24 19:15 | NUR ---
CHANGED OUT LINENS. REPOSITIONED PT UP IN BED FOR COMFORT. PROVIDED PT WITH SPRITE VIA PEG TUBE TO HELP WITH UPSET STOMACH AND DISCOMFORT. ORAL CARE PROVIDED. PT VOICED THANKS. PROPPED UP BILAT FEET ON PILLOW FOR COMFORT. PT DENIES ANY FURTHER NEEDS AT THIS TIME AND IS RESTING QUIETLY. CL IN REACH, BED IN LOWEST, SIDE RAILS X2. WILL CPOC.
--- NOTE | 2017-02-24 19:25 | NUR ---
PT RECEIVED IN BED WITH EYES OPEN WATCHING TV. FAMILY AT BEDSIDE. NO COMPLAINTS OR CONCERNS NOTED AT THIS TIME. CALL LIGHT IN REACH.
--- NOTE | 2017-02-25 00:46 | NUR ---
PT IN BED WITH EYES OPEN WATCHING TV. NO SIGN/SYMPTOMS OF DISTRESS NOTED. TUBE FEEDING CONTINUES AT 65ML/HR WITH PULMACARE. NO OTHER CONCERNS NOTED AT THIS TIME. CALL LIGHT IN REACH.
[2017-02-25 02:18] VITALS: BP 114/63
--- NOTE | 2017-02-25 02:29 | NUR ---
PT IN BED WITH EYES CLOSED AND CHEST RISING. RESPIRATIONS EVEN AND UNLABORED. NO SIGN/SYMPTOMS OF DISTRESS NOTED. CALL LIGHT IN REACH.
--- NOTE | 2017-02-25 04:18 | NUR ---
PT IN BED WITH EYES CLOSED AND CHEST RISING. NO SIGN/SYMPTOMS OF DISTRESS. TRACH CONTINUES TO BE CAPPED WITH O2 SAT 98%. NO CONCERNS NOTED AT THIS TIME. CALL LIGHT IN REACH.
[2017-02-25 05:00] VITALS: BP 128/73
--- NOTE | 2017-02-25 06:35 | NUR ---
PT IN BED WITH EYES CLOSED AND CHEST RISING. RESPIRATIONS EVEN AND UNLABORED. NO CONCERNS NOTED AT THIS TIME. CALL LIGHT IN REACH.
[2017-02-25 06:51] LABS: BASOPHILS 0 % (0-2); EOSINOPHILS 1.6 % (0-7); HEMATOCRIT 29.2 % (42.0-54.0); HEMOGLOBIN 9.7 g/dL (13.5-17.5); IMMATURE GRANULOCYTES 1.6 % (0-5); LYMPHOCYTES 39.6 % (15-50); MCH 28.4 pg (26.0-34.0); MCHC 33.2 g/dL (31.0-37.0); MCV 85.4 fL (80.0-100.0); MEAN PLATELET VOLUME 8.7 fL (7.4-10.4); MONOCYTES 12.8 % (2-11); NEUTROPHILS 44.4 % (40-80); RBC 3.42 10x6/uL (4.20-6.10); RDW 14.5 % (11.5-14.5); WBC 5.1 10x3/uL (4.8-10.8)
[2017-02-25 06:54] LABS: PLATELET COUNT 188 10x3/uL (130-400)
[2017-02-25 07:07] LABS: CALC OSMOLALITY 240 mosm/kg (275-300); CALCIUM 8.7 mg/dL (8.5-10.1); CARBON DIOXIDE 29.1 mmol/L (21.0-32.0); CHLORIDE - SERUM 87 mmol/L (98-107); CREATININE - SERUM 0.6 mg/dL (0.6-1.3); GLUCOSE 96 mg/dL (74-106); POTASSIUM - SERUM 4.9 mmol/L (3.5-5.1); UREA NITROGEN 10 mg/dL (7-18); eGFR NON AFRICAN AMERICAN > 90 mL/min (90-120)
[2017-02-25 07:22] LABS: SODIUM 120 mmol/L (136-145)
--- NOTE | 2017-02-25 08:04 | NUR ---
ASSESSMENT DONE. FAMILY AT SIDE.
[2017-02-25 08:16] VITALS: BP 114/77
--- NOTE | 2017-02-25 09:33 | NUR ---
RESTS IN ISOLATION ROOM. PT AT BS ASSISTING OOB TO CHAIR.
[2017-02-25 11:59] VITALS: BP 118/64
[2017-02-25 16:05] VITALS: BP 109/65
--- NOTE | 2017-02-25 17:36 | NUR ---
WITHOUT CHANGES OR DISTRESS NOTED AT THIS TIME.
[2017-02-25 19:00] VITALS: BP 118/70
--- NOTE | 2017-02-25 20:43 | NUR ---
INITIAL ROUNDS COMPELTED AT 1915 HRS. PT DENIED ANY DISCOMFORT. FAMILY AT BEDSIDE. ASSESSMENT COMPETED AT 2015 HRS. VSS. CONTINUOUS PULSE OX 97%. DRESSING TO MIDNECK CLEAN, DRYA ND INTACT. IV TO UPPR R ARM WITH NS AT 15CC/HR. IV PATENT. PEG TUBE NTOED WITH PULMOCARE AT 65CC/HR. PEG CHECKED FOR RESIDUAL WITH 15CC NOTED. LUNGS DIMINISHED INBASES BILAT. QUINTERO. RUSSO DRAINING YELLOW URINE. RUSSO CLAMPED AT THIS TIME. BLADDER TRAINING EXPLAINED TO PT. STATED VERBAL UNDERSTANDING. SCD'S NOTED SCD'S REMOVEDA ND SKIN INSPECTD. NO BREAKDOWN NOTED.. BUTOOCKS SLIGHTLY RED. PT ON 1ST STEP AIR OVERLAY MATTESS. PT HAS C/O STOMACH ACHE. INFORMED WILL BRING TYLENOL. WILL CONTINUE TO MONITOR. SR UP X2, CALL LIGHT WITHIN REACH.
--- NOTE | 2017-02-25 22:04 | NUR ---
PM MEDS GIVEN VIA PEG TUBE. TYLENOL 650MG VIA PEG GIVEN FOR C/O STOMACH ACHE. ORAL CARE DONE WITH LEMON SWAB STICKS. PT CURRENTLY RESTING WTIH EYES CLOSED. RESP EVEN AND REGULAR. O2 SAT 99% ON RA. BED ALARM ON. KARAN MACIAS T THIS TIME. WILL CONTINUE TO MONITOR.
--- NOTE | 2017-02-26 00:24 | NUR ---
O2 SAT 100% ON RA. CONTINUES TO HAVE C/O ABD PAIN. WILL CONTINUE TO MONITOR.
--- NOTE | 2017-02-26 01:35 | NUR ---
NEW TUBE FEEDING APARATUS UP WITH PULMOCARE AT 65CC/HR AND .9NS FLUSH. URINE SODIU, AND OSMOLARITY SENT TO LAB. WILL CONTINUE TO MONITOR.
[2017-02-26 04:00] VITALS: BP 124/79
--- NOTE | 2017-02-26 04:38 | NUR ---
PT RESTING WITH EYES CLOSED. RESP EVEN AND REGULAR. SR UP X2, CALL LIGHT WITHIN REACH.
[2017-02-26 06:07] LABS: BASOPHILS 0 % (0-2); EOSINOPHILS 0.5 % (0-7); HEMATOCRIT 28.9 % (42.0-54.0); HEMOGLOBIN 9.9 g/dL (13.5-17.5); IMMATURE GRANULOCYTES 0.6 % (0-5); LYMPHOCYTES 19.8 % (15-50); MCH 29.2 pg (26.0-34.0); MCHC 34.3 g/dL (31.0-37.0); MCV 85.3 fL (80.0-100.0); MEAN PLATELET VOLUME 9.1 fL (7.4-10.4); MONOCYTES 12.1 % (2-11); PLATELET COUNT 215 10x3/uL (130-400); RBC 3.39 10x6/uL (4.20-6.10); RDW 14.6 % (11.5-14.5)
--- NOTE | 2017-02-26 06:23 | NUR ---
VSS THROUGHOUT NIGHT. O2 SAT 98-100 % ON RA. NEEDS MET; WILL CONTINUE TO MONITOR.
[2017-02-26 06:26] LABS: WBC 9.3 10x3/uL (4.8-10.8)
[2017-02-26 06:27] LABS: CALCIUM 8.2 mg/dL (8.5-10.1); CREATININE - SERUM 0.5 mg/dL (0.6-1.3); GLUCOSE 98 mg/dL (74-106); MAGNESIUM - SERUM 1.3 mg/dL (1.8-2.4); PHOSPHOROUS 3.8 mg/dL (2.5-4.9); POTASSIUM - SERUM 4.4 mmol/L (3.5-5.1); UREA NITROGEN 8 mg/dL (7-18); eGFR NON AFRICAN AMERICAN > 90 mL/min (90-120)
[2017-02-26 06:51] LABS: CALC OSMOLALITY 235 mosm/kg (275-300); CHLORIDE - SERUM 86 mmol/L (98-107)
[2017-02-26 06:52] LABS: SODIUM 118 mmol/L (136-145)
[2017-02-26 08:00] VITALS: BP 128/84
[2017-02-26 12:00] VITALS: BP 99/53
--- NOTE | 2017-02-26 14:46 | NUR ---
Nutrition follow-up: PUlmocare infusing @ 65 ml/hr. Pt tolerating. Na low; flush changed to NS. Recommend changing TF flush to 50 ml Q [address] RDN following.
[2017-02-26 16:43] VITALS: BP 107/68
--- NOTE | 2017-02-26 17:00 | NUR ---
ALERT AND ORIENTED X4. FAMILY AT BEDSIDE. DC RUSSO. BULB INTACT. URINATES DIRECTLY AFTER RUSSO DISCONTINUED. BOWEL MOVEMENT. STOOL LOOSE. LINEN CHANGE COMPLETE. EXPRESSES FEELING RELIEF AFTER BOWEL MOVEMENT. DENIES ANY NEEDS. CONTINUE PLAN OF CARE AND SAFETY PRECAUTIONS.
--- NOTE | 2017-02-26 17:27 | NUR ---
Patient Name: KATIE SARABIA Encounter No: [id number] : 1975 Primary Insurance: MEDICAID [place] Anticipated DC Date: 01-24-2017 Planned Disposition: Nursing Facility LISA Cert External Planned Provider: TO BE DETERMINED DCP follow-up note: CM RECEIVED CALL FROM PT'S FATHER WHO REPORTS FAMILY PREFERENCE OF [facility] FOR [facility] IF POSSIBLE. CM CONTACTED [facility], , NOTIFIED OF REFERRAL FOR [facility]. CM FAXED REFERRAL TO [facility] AT [phone]. CM CALLED GABY AT [facility], , WHO REPORTS THEY WILL NOT CONSIDER PT. TO COMPLETE AND SUBMIT [facility]. CM WAITING ADMISSION DETERMINATION FROM [facility]. [employer], CASE MANAGEMENT
--- NOTE | 2017-02-26 18:13 | NUR ---
OT NOTE: PT COMPLETED BED MOB WITH SBA/CGA. THANK YOU, ANDI BEDOLLA/Aaron
[2017-02-26 19:36] VITALS: BP 108/64
--- NOTE | 2017-02-26 19:51 | NUR ---
PT RESTING IN BED. C/O STOMACH PAIN 03/15. ATIVAN OFFERED PT ACCEPTED. STOMACH IS TENDER AND BOWELSOUNDS ARE HYPERACTIVE PEG TUBE STILL GOING 65ML/HR. PT DENIES ANY OTHER NEEDS BESIDES SOMETHING FOR STOMACH PAIN. PT HAS NO S/S OF DISTRESS. BED LOW CALLLIGHT WITHIN REACH WILL CONTINUE TO MONITOR
--- NOTE | 2017-02-27 01:34 | NUR ---
PT RESTING IN BED C/O 9/10 PAIN IN STOMACH. STOMACH IS TENDER AND BOWEL SOUNDS ARE HYPERACTIVE. ATIVAN AND TYLENOL GIVEN PT HAS NO S/S OF DISTRESS NO NEEDS EXCEPT SOMETHING FOR THE STOMACH PAIN. BED LOW CALLLILGHT IN REACH WILL CONTINUE TO MONITOR
[2017-02-27 01:53] VITALS: BP 115/78
--- NOTE | 2017-02-27 03:35 | NUR ---
PT ASLEEP. EASILY AROUSED TO TOUCH NOT VOICE. RESPIRATIONS EVEN AND UNLABORED. BED LOW AND CALLLIGHT WITHIN REACH. WILL CONTINUE TO MONITOR PT
[2017-02-27 05:56] VITALS: BP 110/64
[2017-02-27 07:34] LABS: CALCIUM 8.2 mg/dL (8.5-10.1); CARBON DIOXIDE 25.3 mmol/L (21.0-32.0); CHLORIDE - SERUM 89 mmol/L (98-107); CREATINE KINASE 77 UL (21-232); CREATININE - SERUM 0.5 mg/dL (0.6-1.3); GLUCOSE 106 mg/dL (74-106); POTASSIUM - SERUM 4.3 mmol/L (3.5-5.1); UREA NITROGEN 7 mg/dL (7-18); eGFR NON AFRICAN AMERICAN > 90 mL/min (90-120)
[2017-02-27 07:35] LABS: CALC OSMOLALITY 241 mosm/kg (275-300); SODIUM 121 mmol/L (136-145)
[2017-02-27 08:57] VITALS: BP 118/84
--- NOTE | 2017-02-27 10:10 | NUR ---
OT NOTE: PT PERFORMED VERY WELL TODAY. MORE VERBAL; PERFORMING INCREASED ADLS. PT ABLE TO FEED SELF WITH SET UP OF TRAY, CONSUMING ABOUT 100% OF MEAL. PT ALSO ABLE TO USE URINAL WITH MIN ASSIST. BED MOB WITH CGA; TRANSFERS WITH MIN ASSIST WITH USE OF RW; PRACTICED STATIC AND DYNAMIC SITTING BALANCE ACT ON EDGE OF CHAIR WITH CGA FOR DYNAMIC TASKS, HOWEVER, TRUNK STRENGTH MUCH IMPROVED FROM LAST WEEK
--- NOTE | 2017-02-27 10:49 | NUR ---
Nutrition follow-up: Pts diet is now regular mechanical soft with nectar thick liquids. RDN ordered TF to be stopped at this time and calorie count started. Will continue to flush PEG with 40 ml NS every 4 hours to keep PEG tube patent. RDN following.
[2017-02-27 13:34] VITALS: BP 105/65
--- NOTE | 2017-02-27 14:00 | NUR ---
ALERT AND ORIENTED X4. SITTING UP IN BED. PEG TUBE FEEDINGS STOPPED PER ORDER. CALL PHARMACY TO SET UP PEG TUBE FLUSHES 40ML EVERY 4 HOURS ON OCT. DENIES ANY NEEDS. PHYSICAL THERAPY ASSIST TO CHAIR. FAMILY AT BEDSIDE. CONTINUE PLAN OF CARE AND SAFETY PRECAUTIONS.
--- NOTE | 2017-02-27 16:02 | NUR ---
OT NOTE: PT COMPLETED BED MOB WITH SBA. PT COMPLETED SIT TO STAND WITH SBA. PT COMPLETED SIMPLE HYGIENE TASK WITH SBA. PT COMPLETED BUE GROSS MOTOR AXS WHILE STANDING WITH SBA. THANK YOU, ANDI BEDOLLA/Aaron
[2017-02-27 16:38] VITALS: BP 103/63
--- NOTE | 2017-02-27 16:47 | NUR ---
Patient Name: KATIE SARABIA Encounter No: [id number] : 1975 Primary Insurance: MEDICAID [place] Anticipated DC Date: 01-24-2017 Planned Disposition: Nursing Facility [facility] Cert External Planned Provider: [facility] MEDICAID [facility] DCP follow-up note: CM COMPLETED [facility] ASSESSMENT WITH ASSISTANCE OF CHART REVIEW AND PT; PT SIGNED. CM CALLED DR. [facility], FAXED PAGES FOR DR. MCDERMOTT. PT'S FATHER INFORMED CM THAT THEY WOULD LIKE REFERRAL ALSO SENT TO [facility]; CM NOTIFIED CHITO, CLINICAL COORDINATOR FOR [facility]. CM TO FAX [facility] WHEN SIGNED BY DR. NAIR. CM WAITING ADMISSION DETERMINATION FROM [facility]. [employer], CASE MANAGEMENT
--- NOTE | 2017-02-27 20:41 | NUR ---
PT ASLEEP. RESPIRATIONS EVEN AND UNLABORED. NO S/S OF DISTRESS. BED LOW AND CALLLIGHT WITHIN REACH. WILL CONTINUE TO MONITOR
[2017-02-27 21:02] VITALS: BP 114/74
--- NOTE | 2017-02-28 00:02 | NUR ---
PT RESTING. FRIEND AT BEDSIDE. PT DENIES ANY NEEDS AT THIS TIME NO S/S OF DISTRESS. WILL CONTINUE TO MONITOR
[2017-02-28 01:00] VITALS: BP 110/76
[2017-02-28 03:09] LABS: BASOPHILS 0.2 % (0-2); EOSINOPHILS 0.7 % (0-7); HEMATOCRIT 29.1 % (42.0-54.0); HEMOGLOBIN 9.8 g/dL (13.5-17.5); IMMATURE GRANULOCYTES 1.2 % (0-5); LYMPHOCYTES 32.3 % (15-50); MCH 28.7 pg (26.0-34.0); MCHC 33.7 g/dL (31.0-37.0); MCV 85.1 fL (80.0-100.0); MONOCYTES 13.4 % (2-11); NEUTROPHILS 52.2 % (40-80); PLATELET COUNT 217 10x3/uL (130-400); RBC 3.42 10x6/uL (4.20-6.10); RDW 14.4 % (11.5-14.5); WBC 5.8 10x3/uL (4.8-10.8)
[2017-02-28 03:19] LABS: CALC OSMOLALITY 246 mosm/kg (275-300); CALCIUM 8.3 mg/dL (8.5-10.1); CARBON DIOXIDE 25.3 mmol/L (21.0-32.0); CHLORIDE - SERUM 89 mmol/L (98-107); CREATININE - SERUM 0.6 mg/dL (0.6-1.3); GLUCOSE 106 mg/dL (74-106); MAGNESIUM - SERUM 1.4 mg/dL (1.8-2.4); POTASSIUM - SERUM 4.6 mmol/L (3.5-5.1); SODIUM 123 mmol/L (136-145); eGFR NON AFRICAN AMERICAN > 90 mL/min (90-120)
[2017-02-28 03:20] LABS: UREA NITROGEN 9 mg/dL (7-18)
[2017-02-28 04:21] VITALS: BP 110/69
--- NOTE | 2017-02-28 04:44 | NUR ---
STOMACH HURTING PT STATES IT "FEELS ANXIOUS" WHEN ASKED TO DISCRIBE WHAT THE PAIN FEELS LIKE. IV TO RIGHT UPPER AREM INFUSING NS AT 50 PEG TUBE FLUSHED WITH 40 ML NS. PT DENIES ANY OTHER NEEDS AT THIS TIME NO S/S OF DISTRESS. BED LOW CALLLIGHT WITHIN REACH WILL CONTINUE TO MONITOR
--- NOTE | 2017-02-28 06:34 | NUR ---
PT SITTING IN BED. PT CALORIE COUNT IS CHARTED IN THE I'S AND O'S. PT STILL COMPLAINS OF STOMACH PAIN. LESS THAN 5ML OF RESIDUAL WHEN CHECKED BEFORE THE 40ML FLUSH. NO S/S OF DISTRESS. WILL CONTINUE TO MONITOR
[2017-02-28 08:00] VITALS: BP 124/88
--- NOTE | 2017-02-28 08:05 | NUR ---
AM ROUNDS - PT IS AWAKE AND IN BED. SCDS ARE OFF AT THIS TIME. PT HAS A YELLOW BAND ON. PT DOES NOT WANT NON SKID SOCKS ON. IV TO TIGHT UPPER ARM. 1ST STEP OVERLAY MATTRESS. NO NEEDS AT THSIT TIME. WILL CONTINUE TO MONITOR.
--- NOTE | 2017-02-28 08:11 | NUR ---
PT REFUSES TO GET UP TO A CHAIR FOR BREAKFAST. WILL CONTINUE TO MONITOR
--- NOTE | 2017-02-28 09:31 | NUR ---
Patient Name: KATIE SARABIA Encounter No: [id number] : 1975 Primary Insurance: MEDICAID [facility] DC Date: 01-24-2017 Planned Disposition: Nursing Facility L[facility] Cert External Planned Provider: [facility] MEDICAID BED DCP follow-up note: CM RECEIVED SIGNED WILFRID FROM DR. OROZCO OFFICE. CM FAXED [facility] SCREENING FORM WITH SUPPORTING CLINICAL DOCUMENTATION TO [facility], . CM FAXED UPDATED CLINICAL DOCUMENTATION AND [facility] ASSESSMENT TO CHITO, CLINICAL LIAISON FOR [facility] AND [facility], . CM WAITING COMPLETION AND APPROVAL BY [facility] FOR PT'S ENTRY INTO HALF-WAY FACILITY. CM WAITING ADMISSION DETERMINATIONS FROM [facility] AND [facility]. [employer], CASE MANAGEMENT
--- NOTE | 2017-02-28 09:42 | NUR ---
MORNING MEDICATIONS GIVEN. PT TOLERATED WELL. FLUSHED PEG TUBE WITH 40CC OF NS. MOM AT BEDSIDE. PT IS TALKING AND ALERT. NO NEEDS AT THIS TIME. WILL CONTINUE TO MONITOR
[2017-02-28 12:43] VITALS: BP 115/76
--- NOTE | 2017-02-28 14:23 | NUR ---
Nutrition follow-up/calorie count: Pt receiving a regular mechanical soft diet with nectar thick liquids Calorie count for Sunday02/27/17 Kcal Protein Breakfast 675 28 Lunch 685 35 Dinner 425 21 Total 1785 kcal 84 gm protein Pt with good po intake at this time. Tolerating diet. RDN following.
[2017-02-28 16:00] VITALS: BP 116/83
--- NOTE | 2017-02-28 18:26 | NUR ---
OT NOTE: PT COMPLETED BUE AROM EXS FOR INCREASED AX CONNIE WITH ADLS. PT COMPLETED BED MOB WITH SBA. THANK YOU, ANDI BEDOLLA/Aaron
--- NOTE | 2017-02-28 18:57 | NUR ---
PT RECIEVING CUBICIN IV. IV CAME OUT AND UNABLE TO GAIN IV ACCESS. PARTIAL DOSE GIVEN.
--- NOTE | 2017-02-28 19:17 | NUR ---
RECEIVED REPORT, WILL ASSUME CARE OF PT, SPOKE WITH FAMILY, EXPLAINED WE WILL WAIT ON IV-NO IV MEDS AT THIS TIME, SLEEPING ON L. SIDE, BED IS LOW, SRX2, CALL LIGHT IN REACH, WILL CONTINUE PLAN OF CARE
[2017-02-28 20:00] VITALS: BP 116/75
--- NOTE | 2017-03-01 02:10 | NUR ---
ASSESSMENT COMPLETE, SEE FLOW SHEET, BED IS LOW, SRX2, CALL LIGHT IN REACH, FAMILY AT BEDSIDE, WILL CONTINUE PLAN OF CARE
[2017-03-01 04:20] VITALS: BP 122/80
[2017-03-01 04:58] LABS: BASOPHILS 0 % (0-2); EOSINOPHILS 0.6 % (0-7); HEMOGLOBIN 9.9 g/dL (13.5-17.5); IMMATURE GRANULOCYTES 1.3 % (0-5); LYMPHOCYTES 28.5 % (15-50); MCH 28.9 pg (26.0-34.0); MCHC 34.1 g/dL (31.0-37.0); MCV 84.5 fL (80.0-100.0); MONOCYTES 11.8 % (2-11); NEUTROPHILS 57.8 % (40-80); PLATELET COUNT 191 10x3/uL (130-400); RBC 3.43 10x6/uL (4.20-6.10); RDW 14.4 % (11.5-14.5)
[2017-03-01 05:13] LABS: CALCIUM 8.3 mg/dL (8.5-10.1); CARBON DIOXIDE 26.2 mmol/L (21.0-32.0); CREATININE - SERUM 0.6 mg/dL (0.6-1.3); GLUCOSE 87 mg/dL (74-106); POTASSIUM - SERUM 4.5 mmol/L (3.5-5.1); eGFR NON AFRICAN AMERICAN > 90 mL/min (90-120)
[2017-03-01 05:21] LABS: CALC OSMOLALITY 240 mosm/kg (275-300); CHLORIDE - SERUM 86 mmol/L (98-107); SODIUM 121 mmol/L (136-145)
[2017-03-01 05:23] LABS: UREA NITROGEN 6 mg/dL (7-18)
[2017-03-01 08:00] VITALS: BP 125/82
--- NOTE | 2017-03-01 08:00 | NUR ---
PATIENT REMAINS IN CONTACT ISOLATION. FAMILY MEMBER IN ROOM WITH PATIENT. PATIENT IS CONFUSED/DISORIENTED. GARBLED SPEECH.
--- NOTE | 2017-03-01 10:03 | NUR ---
Patient Name: KATIE SARABIA Encounter No: [id number] : 1975 Primary Insurance: MEDICAID [place] Anticipated DC Date: 01-24-2017 Planned Disposition: Nursing Facility [facility] Cert External Planned Provider: [facility] MEDICAID [facility] DCP follow-up note: CM SPOKE TO PT'S PARENTS REGARDING UPDATE ON PLACEMENT EFFORTS, PT'S MOTHER REPORTS PT WILL HAVE TO BE WALKING BETTER FOR THEM TO BE ABLE TO CARE FOR PT AT HOME AND ARE STILL REQUESTING LONGTERM PLACEMENT UNTIL THEY ARE ABLE TO CARE FOR PT AT HOME. PARENTS ARE REQUESTING CM EXPAND SEARCH BUT STILL PREFER [facility]. CM DISCUSSED THE NEED TO SEEK PRIMARY CARE DOCTOR FOR PT. PT HAS NO PRIMARY DOCTOR FOR HOME HEALTH ORDERS; FACILITIES THAT WILL NOT ACCEPT PT ARE [facility], [facility] AND [facility]. [facility] IS STILL CONSIDERING PT. CM RECEIVED [facility] APPROVAL FOR 60 DAYS IN [facility]. CM NOTIFIED [facility] OF [facility] AT [phone]; THEY ARE STILL EVALUATING PT AND REPORT PT WILL BE EXPENSIVE TO CARE FOR. CM FAXED UPDATE WITH [facility] APPROVAL TO [facility] AT [phone]. CM FAXED REFERRALS TO [facility] AT [phone], [facility] AT [phone] AND [facility] AT [phone]. [employer], CASE MANAGEMENT
--- NOTE | 2017-03-01 11:28 | NUR ---
PHYSICAL THERPIST WORKING WITH PATIENT. PATIENT WALKED IN ROOM AND IS NOW SITTING UP IN A CHAIR
--- NOTE | 2017-03-01 11:39 | NUR ---
UP WITH P.T. WALKING IN THE ROOM WITH A WALKER. CONNIE WELL. WILL CONTINUE TO MONITOR.
[2017-03-01 12:30] VITALS: BP 98/56
[2017-03-01 15:38] VITALS: BP 100/66
--- NOTE | 2017-03-01 17:50 | NUR ---
OT NOTE: PT COMPLETED BED MOB WITH SPV. PT SIMPLE GROOMING TASK OF WASHING FACE AND HANDS WITH SET UP. PT REQUIRED MAX V/CS FOR INCREASED ATTENTION TO TASK. THANK YOU, ANDI BEDOLLA/Aaron
[2017-03-01 19:00] VITALS: BP 138/80
--- NOTE | 2017-03-01 19:15 | NUR ---
ALERT/AWAKE TALKING TO FAMILY MEMBERS PRESENT IN ROOM. IN CONTACT ISOLATION FOR MRSA/BLOOD. DRSG ON NECK OF OLD TRACH SITE, C/D/I. ON 1ST STEP OVRELAY AIR MATTRESS. REQUESTED ASSISTANCE TO BSC FOR BM.
[2017-03-01 19:17] LABS: BASOPHILS 0.2 % (0-2); EOSINOPHILS 1.3 % (0-7); IMMATURE GRANULOCYTES 1.7 % (0-5); LYMPHOCYTES 28.4 % (15-50); MCH 29.1 pg (26.0-34.0); MCHC 34.5 g/dL (31.0-37.0); MCV 84.3 fL (80.0-100.0); MEAN PLATELET VOLUME 8.3 fL (7.4-10.4); MONOCYTES 12.4 % (2-11); PLATELET COUNT 210 10x3/uL (130-400); RBC 3.44 10x6/uL (4.20-6.10); RDW 14.3 % (11.5-14.5); WBC 6.1 10x3/uL (4.8-10.8)
[2017-03-01 19:29] LABS: ALKALINE PHOSPHATASE 72 U/L (46-116); ALT (SGPT) 42 U/L (10-68); BILIRUBIN - TOTAL 0.35 mg/dL (0.2-1.3); CALC OSMOLALITY 241 mosm/kg (275-300); CALCIUM 8.2 mg/dL (8.5-10.1); CARBON DIOXIDE 27.1 mmol/L (21.0-32.0); CHLORIDE - SERUM 87 mmol/L (98-107); CREATININE - SERUM 0.6 mg/dL (0.6-1.3); GLUCOSE 103 mg/dL (74-106); POTASSIUM - SERUM 4.6 mmol/L (3.5-5.1); PROTEIN - SERUM 7.3 g/dL (6.4-8.2); SODIUM 121 mmol/L (136-145); UREA NITROGEN 6 mg/dL (7-18); eGFR NON AFRICAN AMERICAN > 90 mL/min (90-120)
[2017-03-02] VITALS: BP 114/64
--- NOTE | 2017-03-02 00:30 | NUR ---
WATCHING TV. REQUESTED SOME PUDDING.
--- NOTE | 2017-03-02 02:15 | NUR ---
ADMIN ZOFRAN 4MG PO FOR C/O "STOMACH HURTING". POLICE CAPTAIN PRECINCT STATED SHE HAD GIVING HIM 2 PUDDINGS AND THICKEN COFFEE. POSSIBLE THE CAUSE OF HIS STOMACH ACHING.
[2017-03-02 04:00] VITALS: BP 136/84
--- NOTE | 2017-03-02 04:10 | NUR ---
ADMIN TYLENOL 650MG ORAL FOR C/O PAIN. STATING "HURTS EVERYWHERE" GESTURING WITH HIS ARMS OVER HIS BODY.
--- NOTE | 2017-03-02 05:52 | NUR ---
ADMIN SCHED PROTONIX AND ZOFRAN 4MG PO FOR C/O ABD PAIN LEVEL 9 ON NUMBER SCALE. ALSO C/O PAIN ALL OVER.
[2017-03-02 08:01] VITALS: BP 129/81
--- NOTE | 2017-03-02 08:23 | NUR ---
AM MEDS GIVEN AT THIS TIME. PEG TUBE FLUSHED WITH 40CC OF NS. PT STATES THAT HE WANTS HIS LIGHTS OFF. BEDSIDE RAILS X2, BE LOW AND WHEELS LOCKED, BED ALARM ON, CALL LIGHT IN REACH, NO FAMILY AT BEDSIDE, NAD NOTED, WILL CONTINUE TO MONITOR.
[2017-03-02 11:52] VITALS: BP 126/82
--- NOTE | 2017-03-02 12:04 | NUR ---
Patient Name: KATIE SARABIA Admission Status: ER Accout number: [id number] Admission Date: 01-09-2017 : 1975 Admission Diagnosis:FEVER, UNSPECIFIED Attending: THELMA Current LOS: 52 Anticipated DC Date: 03-02-2017 Planned Disposition: RESIDENTIAL FACILITY Primary Insurance: MEDICARE PART A ONLY PLANNED EXTERNAL PROVIDER: [facility], MEDICARE REHAB BED Discharge Planning Comments: CM RECEIVED MESSAGE FROM [facility] WHO REPORTS PT MAY HAVE MEDICARE AND ASKED TO VERIFY PT'S SOCIAL SECURITY NUMBER. CM SPOKE TO PT AND MOTHER IN ROOM, VERIFIED PT'S SOCIAL SECURITY NUMBER. PT'S FATHER VIA PHONE REPORTS FINDING MEDICARE LETTER INDICATING PT HAS MEDICARE PART A. CM PROVIDED VERIFIED SOCIAL SECURITY NUMBER TO JESSE IN [facility] BUSINESS OFFICE WHO VERIFIED PART A MEDICARE ACTIVE SINCE 2005. CM NOTIFIED PT AND MOTHER IN ROOM WHO REPORTED CHOICE OF THE [facility] FOR REHAB, IN AGREEMENT WITH DISCHARGE TODAY IF ACCEPTED. IMPORTANT MESSAGE FROM MEDICARE PROVIDED AND DISCUSSED. CM CALLED [facility] WHO REQUESTED CLINICAL UPDATE; CM REQUESTED ADMISSION DETERMINATION WALKER FOR ADMISSION TODAY. CM FAXED CLINICAL UPDATE FOR THE [facility] TO [phone]. DB GARRETT ALBORN ARRIVED TO ASSESS PT, MET WITH PT AND FAMILY IN ROOM. CM WAITING ADMISSION DETERMINATIONS FROM [facility] (PREFERRED BY PT/FAMILY) [facility] AND [facility]. MAIR[employer], CASE MANAGEMENT
[2017-03-02] MEDS ORDERED: METOPROLOL TART50 MG PO (15:42)
[2017-03-02 16:07] VITALS: BP 115/72
--- NOTE | 2017-03-02 17:00 | NUR ---
PROVIDED VERBAL AND WRITTEN DISCHARGE TEACHING TO PT AND FAMILY AT BEDSIDE, FAMILY AND PT VERBALIZED UNDERSTANDING REGARING TEACHING. BARTOLO COFFEY AT BEDSIDE APPLYING DRESSING TO PEG TUBE SITE. WILL GET WHEELCHAIR AND WHEEL PT TO FRONT DOOR. 1718- CALLED REPORT TO [facility]. GAVE REPORT TO PARAMJIT SCHMIDT WHO WILL BE TAKING CARE OF PT. PT LEFT UNIT VIA WHEELCHAIR, ACCOMPANIED BY MOTHER. NAD NOTED.
== END 2017-03-02 17:22 | DRG 3 ==
LOC: D.ER 22:14 → D.M2 01-09 06:34 → D.ICU 01-09 06:34 → D.M2 02-21 11:35
PROVIDERS: Emergency Medicine; Family Medicine; General Practice; Internal Medicine Cardiovascular Disease; Internal Medicine Gastroenterology; Internal Medicine Pulmonary Disease; Specialist; Student in an Organized Health Care Education/Training Program; ADMIT Family Medicine
PROC: 02HV33Z Insertion of Infusion Device into Superior Vena Cava, Percutaneous Approach (ICD-10-PCS; principal; 2017-01-22)
PROC: 3E05317 Introduction of Other Thrombolytic into Peripheral Artery, Percutaneous Approach (ICD-10-PCS; 2017-01-24)
PROC: 04CM3ZZ Extirpation of Matter from Right Popliteal Artery, Percutaneous Approach (ICD-10-PCS; 2017-01-24)
PROC: B41F1ZZ Fluoroscopy of Right Lower Extremity Arteries using Low Osmolar Contrast (ICD-10-PCS; 2017-01-24)
PROC: 04CP3ZZ Extirpation of Matter from Right Anterior Tibial Artery, Percutaneous Approach (ICD-10-PCS; 2017-01-24)
PROC: 3E05317 Introduction of Other Thrombolytic into Peripheral Artery, Percutaneous Approach (ICD-10-PCS; 2017-01-24)
PROC: 0B113F4 Bypass Trachea to Cutaneous with Tracheostomy Device, Percutaneous Approach (ICD-10-PCS; 2017-01-25)
PROC: 04CR3ZZ Extirpation of Matter from Right Posterior Tibial Artery, Percutaneous Approach (ICD-10-PCS; 2017-01-25)
PROC: 0BH17EZ Insertion of Endotracheal Airway into Trachea, Via Natural or Artificial Opening (ICD-10-PCS; 2017-01-26)
PROC: 5A1955Z Respiratory Ventilation, Greater than 96 Consecutive Hours (ICD-10-PCS; 2017-01-26)
PROC: 009600Z Drainage of Cerebral Ventricle with Drainage Device, Open Approach (ICD-10-PCS; 2017-01-26)
PROC: 0DH63UZ Insertion of Feeding Device into Stomach, Percutaneous Approach (ICD-10-PCS; 2017-02-05)
PROC: 0BJ08ZZ Inspection of Tracheobronchial Tree, Via Natural or Artificial Opening Endoscopic (ICD-10-PCS; 2017-02-07)
DX: A41.02 Sepsis due to Methicillin resistant Staphylococcus aureus (principal); I61.4 Nontraumatic intracerebral hemorrhage in cerebellum; J15.6 Pneumonia due to other Gram-negative bacteria; J96.01 Acute respiratory failure with hypoxia; I33.0 Acute and subacute infective endocarditis; J69.0 Pneumonitis due to inhalation of food and vomit; G93.40 Encephalopathy, unspecified; N17.9 Acute kidney failure, unspecified; A77.0 Spotted fever due to Rickettsia rickettsii; D62 Acute posthemorrhagic anemia; G91.9 Hydrocephalus, unspecified; I74.3 Embolism and thrombosis of arteries of the lower extremities; G72.81 Critical illness myopathy; E87.1 Hypo-osmolality and hyponatremia; Z66 Do not resuscitate; B95.62 Methicillin resistant Staphylococcus aureus infection as the cause of diseases classified elsewhere; I77.1 Stricture of artery; K02.9 Dental caries, unspecified; Z72.0 Tobacco use; D47.3 Essential (hemorrhagic) thrombocythemia; B96.20 Unspecified Escherichia coli [E. coli] as the cause of diseases classified elsewhere

== ENCOUNTER 2017-03-06 20:34 | Emergency (ER) | payer MEDICARE ==
[2017-01-15 13:37] VITALS: BMI 31.4
[~2017-03-06 20:34] MED LIST changes: +METOPROLOL TART50 MG PO
[2017-03-06 21:26] LABS: ALBUMIN 3.2 g/dL (3.4-5.0); ALKALINE PHOSPHATASE 72 U/L (46-116); ALT (SGPT) 34 U/L (10-68); CALC OSMOLALITY 250 mosm/kg (275-300); CALCIUM 8.3 mg/dL (8.5-10.1); CHLORIDE - SERUM 91 mmol/L (98-107); CREATININE - SERUM 0.6 mg/dL (0.6-1.3); GLUCOSE 106 mg/dL (74-106); POTASSIUM - SERUM 3.9 mmol/L (3.5-5.1); PROTEIN - SERUM 7.3 g/dL (6.4-8.2); SODIUM 125 mmol/L (136-145); UREA NITROGEN 9 mg/dL (7-18); eGFR NON AFRICAN AMERICAN > 90 mL/min (90-120)
== END 2017-03-06 22:20 | disposition home or self-care (01) ==
LOC: D.ER 20:34
PROVIDERS: Family Medicine
DX: E87.1 Hypo-osmolality and hyponatremia (principal); B19.20 Unspecified viral hepatitis C without hepatic coma

== ENCOUNTER → 2017-04-03 | Emergency (ER) | payer MEDICARE ==
[2017-01-15 13:37] VITALS: BMI 31.4
[2017-04-03 14:59] LABS: BASOPHILS 0.2 % (0-2); EOSINOPHILS 1.5 % (0-7); HEMATOCRIT 35.1 % (42.0-54.0); HEMOGLOBIN 12.2 g/dL (13.5-17.5); LYMPHOCYTES 43.8 % (15-50); MCH 29.4 pg (26.0-34.0); MCHC 34.8 g/dL (31.0-37.0); MCV 84.6 fL (80.0-100.0); MEAN PLATELET VOLUME 8.6 fL (7.4-10.4); MONOCYTES 19.2 % (2-11); NEUTROPHILS 34.3 % (40-80); PLATELET COUNT 223 10x3/uL (130-400); RBC 4.15 10x6/uL (4.20-6.10); WBC 4.8 10x3/uL (4.8-10.8)
[2017-04-03 16:01] LABS: ALBUMIN 3.7 g/dL (3.4-5.0); ALKALINE PHOSPHATASE 56 U/L (46-116); ALT (SGPT) 62 U/L (10-68); CALC OSMOLALITY 249 mosm/kg (275-300); CALCIUM 8.4 mg/dL (8.5-10.1); CARBON DIOXIDE 24.2 mmol/L (21.0-32.0); CHLORIDE - SERUM 91 mmol/L (98-107); CREATININE - SERUM 0.6 mg/dL (0.6-1.3); GLUCOSE 100 mg/dL (74-106); POTASSIUM - SERUM 4.7 mmol/L (3.5-5.1); PROTEIN - SERUM 7.3 g/dL (6.4-8.2); SODIUM 125 mmol/L (136-145); UREA NITROGEN 7 mg/dL (7-18); eGFR NON AFRICAN AMERICAN > 90 mL/min (90-120)
== END ==
LOC: D.ER 13:55
PROVIDERS: Emergency Medicine
DX: R51 Headache (principal); B19.20 Unspecified viral hepatitis C without hepatic coma